=== PATIENT | female | born 1950 | race Caucasian/White ===

== ENCOUNTER 2024-08-29 21:10 | Emergency (ER) | payer MEDICARE, OTHER, SELFPAY ==
--- OUTSIDE RECORDS SUMMARY | 2024-08-29 21:13 | XMS_ITS | Encounter Summary ---
Author Organization [place] Address [address] [place] [address] Care Team Providers Care Benzol Still Operator Name Role Phone Velma Sosa PA-C Primary Care Provider [phone] Encounter Details Date Type Department Care Team (Late st Contact Info) Description 03/25/2024 [facility] [address] [facility] [address] [place] [address] [place] [address] [place] [address] Social History Tobacco Use Types Packs/Day Years Used Date Smoking Tobacco: Never Smokeless Tobacco: Never Alcohol Use Standard Drinks/Week Comments Yes 0 (1 standard drink = 0.6 oz pur e alcohol) occ. Food Insecurity Answer Date Recorded Within the past 12 months, d id you worry that your food would run out before you got money to buy more? No 01/15/2024 Within the past 12 months, d id the food you bought just not last and you didn t have money to get more? No 01/15/2024 Housing Stability Answer Date Recorded Do you have housing? (Sampsonin g is defined as stable permanent housing and does not include staying outside in a car, in a tent, in an abandoned building, in an overnight correction, or couch-surfing.) Yes 01/15/2024 Are you worried about losing your housing? No 01/15/2024 Financial Resource Strain Answer Date R ecorded Within the past 12 months, h ave you or your family members you live with been unable to get utilities (heat, electricity) when it was really needed? No 01/15/2024 Transportation Needs Answer Date Record ed Within the past 12 months, h as lack of transportation kept you from medical appointments, getting your medicines, non-medical meetings or appointments, work, or from getting things that you need? No 01/15/2024 Interpersonal Safety Answer Date Record ed Do you feel physically and e motionally safe where you currently live? Yes 01/15/2024 Within the past 12 months, h ave you been hit, slapped, kicked or otherwise physically hurt by someone? No 01/15/2024 Within the past 12 months, h ave you been humiliated or emotionally abused in other ways by your partner or ex-partner? 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 Author MYC ECC SURG ENROLL Care Plan MyC ECC SURG ENROLL No Yaneth Le documented as of this encounter Visit Diagnoses Not on filedocumented in this encounter Additional Health Concerns Active Problems Noted Date Diagnosed Date MyC ECC SURG ENROLL 12/17/2023 documented as of this encounter Care Teams Benzol Still Operator Relationship Specialty Start Date End Date Velma Sosa PA-C [address] [place] [address] PCP - General 11/20/23 documented as of this encounter
--- OUTSIDE RECORDS SUMMARY | 2024-08-29 21:13 | XMS_ITS | Data Portability ---
Author Organization [place] - [facility], [facility], [id number] [facility] [address] [facility] [address] [place] [address] Assessment No assessment recorded. Plan of Treatment Reminders Order Date Submit Date Provider Last Modified By Organization Details Last Modified Time Details Appointments None recorded. Lab rapid flu (A+B) 2024 025 [email or web address] [facility], [address] [facility] [address], [place], [address], 17:37:49 Referral None recorded. Procedures None recorded. Surgeries None recorded. Imaging None recorded. Medication Orders amoxicillin 500 mg capsule 2024 025 [id number], [address], [place], [place], [id number], 17:38:04 sodium chloride 0.9 % intravenous solution 2024 025 Not available 07:58:59 Patient TargetsNo targets recorded. Patient Instructions Encounter Date Encounter Id Patient Instructions Last Modified By Organization Details Last Modified Time 04/11/[id number] nausea and vomiting: care instructions [email or web address] Not available 04/11/2024 17:37:49 Reason for Referral None Reported. Results Created Date Observation Date Name Description Value Unit Range Abnormal Flag Note LastModifiedBy Organization Detail LastModifiedTime 04/11/19 25 04/11/2024 rapid flu (A+B) Flu A (reference range: negative) negati ve Not Available [facility] [address], [place], [address], 04/11/2024 16:36:09 04/11/19 25 04/11/2024 rapid flu (A+B) Flu B (reference range: negative) negati ve Not Available [facility] [address], [place], [address], 04/11/2024 16:36:09 Result Notes None recorded. Problems No Known Problems Procedures Surgical History Date Name Laterality Status Provider Name and Address Organization Details Recorded Time IV Infusion completed UBALDO PETER, CHRISTINA [address] [facility] [address], [place], [address], [facility], [facility] 04/11/2024 20:24:02 Imaging Results None recorded. Procedure Notes None recorded. Medical Equipment None Reported. Allergies Allergen ID Allergen Name Allergen Category Reaction Reaction Severity Criticality Documentation Date Start Date Code Code System Note Provider Name and Address Organization Details Recorded Time [id number] lithium Not available Not available Not available Not available 04/11/2024 6448 Rx[facility], [facility] 16:34:37 [id number] aspirin medicatio n Not available Not available Not available 04/11/2024 1191 RxGeorge Camarillo CMA [facility], [facility] 16:34:42 Medications Name Sig Start Date Stop Date Status Note LastModified by Organization Details LastModified Time amoxicill in 500 mg capsule TAKE 1 CAPSULE BY MOUTH EVERY 8 HOURS FOR 7 DAYS active Not Available Not Available No t Available famotidin e 40 mg tablet TAKE ONE TABLET BY MOUTH ONE TIME DAILY* active Not Available Not Available No t Available prednison e 20 mg tablet TAKE ONE TABLET BY MOUTH EVERY DAY WITH MEALS* 04/11 completed Not Available Not Available Not Available metronida zole 500 mg tablet Take 1 tablet at 1:00pm, 2:00pm and 11:00pm the day before surgery* 04/11 completed Not Available Not Available Not Available sulfameth oxazole 800 mg-trimet hoprim 160 mg tablet TAKE 1 TABLET BY MOUTH TWICE DAILY FOR 10 DAYS* 04/11 completed Not Available Not Available Not Available triamcino lone acetonide 0.1 % topical cream APPLY TWICE A DAY TO AFFECTED AREA* 04/11 completed Not Available Not Available Not Available ondansetr on 8 mg disintegr ating tablet Place 1 tablet twice a day by translin gual route as needed. 2024 active Not Available Not Available Not Avai lable amoxicill in 875 mg tablet Take 1 Tablet (875 mg) by mouth two times daily for 5 days* 04/11 completed Not Available Not Available Not Available benzonata te 100 mg capsule Take 1 Capsule (100 mg) by mouth 3 times daily if needed for Cough* 04/11 completed Not Available Not Available Not Available betametha sone dipropion ate 0.05 % topical cream Apply topicall y to affected area(s) two times daily.* 04/11 completed Not Available Not Available Not Available hydroxyzi ne HCl 25 mg tablet TAKE ONE TABLET BY MOUTH THREE TIMES DAILY NEEDED FOR ITCHING* active Not Available Not Available No t Available sodium chloride 0.9 % intraveno us solution Inject 1000 mL every day by intraven ous route. 2024 active Patient discharg e reportin g improvem ent of fatigue Not Available Not Available Not Available neomycin 500 mg tablet TAKE 2 TABLETS AT 1PM, 3PM,AND 10PM THE DAY BEFORE SURGERY. * 04/11 completed Not Available Not Available Not Available albuterol sulfate HFA 90 mcg/actua tion aerosol inhaler Inhale 1-2 Puffs by mouth every 4 hours if needed for Shortnes s Of Breath or Wheezing .* 04/11 completed Not Available Not Available Not Available ondansetr on 4 mg disintegr ating tablet DISSOLVE ONE TABLET IN MOUTH EVERY FOUR TO SIX HOURS NEEDED FOR NAUSEA* active Not Available Not Available No t Available mometason e 0.1 % topical cream Apply topicall y to affected area(s) once daily.* 04/11 completed Not Available Not Available Not Available amoxicill in 875 mg-potass ium clavulana te 125 mg tablet TAKE ONE TABLET BY MOUTH EVERY TWELVE HOURS* 04/11 completed Not Available Not Available Not Available doxepin 3 mg tablet TAKE ONE TABLET BY MOUTH AT BEDTIME* active Not Available Not Available No t Available Vitals Date Recorded Body height Body mass index (BMI) Body weight Heart rate Body temperature Oxygen saturation Oxygen saturation in Arterial blood by Pulse oximetry Respiratory rate Systolic blood pressure Diastolic blood pressure Provider Name and Address Organization Details Last Updated DateTime 175.26 cm 28.3 kg/m2 16311.0 2 g 86 /min 98.2 [degF] 98 % 98 % 16 /min 151 mm[Hg] 85 mm[Hg] Nhi Camarillo CMA [place] [facility], [facility] 16:34:15 Social History Question Answer Notes LastModified by [email or web address] Details LastModified Time Tobacco Smoking Status Never Smoker Nhi Camarillo CMA [facility] [place] [facility], [facility] 04/11/2024 16:24:32 Do You Have An Advance Directive? No Information not available 04/11/2024 What Is Your Level Of Caffeine Consumption? None Information not available 04/11/2024 Do You Have A Medical Power Of Regulatory Affairs Associate? No Information not available 04/11/2024 What Was The Date Of Your Most Recent Tobacco Screening? 04/11/2024 Information not available 04/11/2024 Has Tobacco Cessation Counseling Been Provided? No Information not available 04/11/2024 Sex: Female Functional Status Question Answer Note LastModified by [email or web address] Details LastModified Time Do you use any illicit or recreational drugs? No Information not available 04/11/2024 Do you or have you ever used any other forms of tobacco or nicotine? No Information not available 04/11/2024 What is your level of alcohol consumption? None Information not available 04/11/2024 Mental Status None recorded. Family History Nothing Reported. Medical History Condition Response KIDNEY STONES N DIABETES N CHRONIC PAIN N RADIATION / CHEMOTHERAPY N COPD N CONGESTIVE HEART FAILURE N RHEUMATOID ARTHRITIS N EYE PROBLEMS N HYPERTHYROIDISM N BLEEDING DISORDER N CHRONIC SINUSITIS N HYPOTHYROIDISM N CAROTID BLOCKAGE N SEIZURES N BACK / NECK PROBLEMS N BOWEL PROBLEMS N MIGRAINES N THYROID DISEASE N ATHEROSCLEROSIS N ULCERS N BREAST PROBLEMS N PROSTATE PROBLEMS N LUPUS N CAD - Coronary Artery Disease N IBS N DIALYSIS N OTHER N HIV / AIDS N ADHD N GERD N ANEURYSM N FIBROMYALGIA N OSTEOPOROSIS N URINARY/BLADDER/KIDNEY PROBLEMS N CANCER N HERNIA N HYPERCHOLESTEROLEMIA Y ARTHRITIS N HEADACHES N SKIN PROBLEMS N EMPHYSEMA N CROHN'S DISEASE N PERIPHERAL VASCULAR DISEASE N DVT N STROKE/CVA N HYPERLIPIDEMIA N PATIENT DENIES SIGNIFICANT PAST MEDICAL HISTORY N HEPATITIS / LIVER DISEASE N ASTHMA N GOUT N SLEEP DISORDER N HERPES N DEMENTIA N ALLERGIES N VASCULAR DISEASE N KIDNEY DISEASE N LUNG DISORDER N HYPERTENSION N CARDIAC ARRHYTHMIA N ANXIETY DISORDER N DEPRESSION (INCLUDING ) N BLOOD TRANSFUSION N ANEMIA/BLOOD DISORDER N ATRIAL FIBRILLATION N PULMONARY EMBOLISM N BIPOLAR DISORDER N HEART DISEASE N BRAIN TUMOR N OSTEOARTHRITIS N HEART ATTACK (CA) N TUBERCULOSIS N GLAUCOMA N Gynecological History Statement/Question Response If Post Menopausal, Age at Menopause 49 Obstetrics History GPAL:G 0 P 0 0 0 0 Past Encounters Encounter ID Performer Location Encounter Start Date Encounter Closed Date Diagnosis/Indication Diagnosis SNOMED-CT Code Diagnosis ICD10 Code Diagnosis Note [id number] UBALDO PETER NP [facility] [phone] [place] [address] 04/11/2024 15:14:05 04/11/2024 21:02:07 Nausea and vomiting 18096623 R11.2 influenza a and B swabs negative, patient reports she has been weak and I able to keep anything down since symptoms started 2 days ago. Will empiricall y treat with amoxicilli n. administer ed 1 L of normal saline, patient reports improvemen t of weakness, fatigue it. Discussed signs of dehydratio n instructed to go to the ER if having same. Health Concerns Section Related Observation LastModified by Organization Detai ls LastModified Time None Recorded Concern Status LastModified by Organization Details LastModified Time None Recorded Advance Directives Directive N: Payers Insurance Date Sequence Insurance Name Policy Number Policy Maddox Covered Member ID Maddox Member ID Guarantor Name 08/13/2024 1 [place] Bell Foreman [id number] Bell Foreman 04/13/2024 2 () Bell Foreman [id number] Bell Foreman Notes Date Note Type Note Provider Name and Address Organization Details Recorded Time 04/11/2024 text/html 73-year-old female presenting with vomiting diarrhea body aches chills that started 2 days ago. States that she has been unable to keep anything down since then. Rates pain a 5/10. States she feels she is dehydrated. UBALDO PETER NP [address], [place], [address], [place] [facility], [facility] 04/11/2024 20:24:23 OBGyn Episode No OBEpisode recorded.
--- OUTSIDE RECORDS SUMMARY | 2024-08-29 21:13 | XMS_ITS | Clinical Summary ---
Author Organization [place] Address [address] [place] [address] Care Team Providers Care K 9 Police Officer Name Role Phone Velma Sosa PA-C Primary Care Provider Allergies Active Allergy Reactions Criticality Noted Date Comments Adhesive Tape Rash Low 10/30/2023 Aspirin Hives High 12/23/2004 Tolerated Aspirin on 06/12/2018 without difficulty. No hives. [place] Hives High 12/23/2004 Naproxen Hives High 12/23/2004 Ok to take ibuprofen Medications albuterol (PROAIR HFA/PROVENTIL HFA/VENTOLIN HFA) 108 (90 Base) MCG/ACT inhaler Inhale 1-2 puffs into the lungs every 4 hours as needed. 4 Active vitamin D3 (CHOLECALCIFEROL) 125 MCG (5000 UT) tablet Take 5,000 Units by mouth daily. Active cyanocobalamin (VITAMIN B-12) [address] 1,000 mcg under the tongue daily. Active gabapentin (NEURONTIN) 300 MG capsule Take 300 mg by mouth every morning. 3 Active gabapentin (NEURONTIN) 400 MG capsule Take 1,200 mg by mouth at bedtime. 3 Active hydrOXYzine HCl (ATARAX) 10 MG tablet Take 25 mg by mouth every 8 hours as needed for itching. 3 Active metoprolol succinate ER (TOPROL XL) 25 MG 24 hr tablet Take 1 tablet by mouth daily. 4 Active Multiple Vitamin (ONE-A-DAY ESSENTIAL) TABS Take 2 tablets by mouth daily. Active xggcdo-hhsuevwi-e mylase (CREON 24) 68633-65[address]-25[address] 0 units CPEP per EC capsule Take 2 capsules by mouth 3 times daily (with meals). Active fexofenadine (GALILEA) 60 MG tablet Take 60 mg by mouth daily. Active Lactobacillus Acidophilus (ACIDOPHILUS LACTOBACILLUS) 10 BETH UNT/GM POWD 1 tablet daily. Active dcgdvk-icypduei-u mylase (CREON 24) 98669-21747-01466 0 units CPEP per EC capsule Take 1 capsule by mouth Take with snacks or supplements. Active oxyCODONE (ROXICODONE) 5 MG tabletIndications :Mass of colon Take 1 tablet (5 mg) by mouth every 6 hours as needed for moderate to severe pain. 15 tablet 4 Active apixaban ANTICOAGULANT (ELIQUIS) 5 MG tabletIndications :Chronic atrial fibrillation (H) Take 1 tablet (5 mg) by mouth 2 times daily. 60 tablet 4 Active doxepin (SILENOR) 3 MG tablet Take 3 mg by mouth at bedtime. Active vancomycin (VANCOCIN) 125 MG capsuleIndication s:Clostridioides difficile Take 1 tab q6 hours for ten days and continue 1 tab BID until medication is over 68 capsule 4 Active Active Problems Problem Noted Date Diagnosed Date Intra-abdominal abscess 01/15/2024 Abdominal wall cellulitis 01/15/2024 Resolved Problems Problem Noted Date Diagnosed Date Resolved Date Mixed incontinence 03/11/2024 Mass of colon 12/23/2023 05/22/2024 Social History Tobacco Use Types Packs/Day Years Used Date Smoking Tobacco: Never Smokeless Tobacco: Never Tobacco Cessation:Counseling Given: Not Answered Alcohol Use Standard Drinks/Week Comments Yes 0 [...] Answer Date Recorded Do you have housing? 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 MACHINE OPERATOR Gender Identity Not on file Sexual Orientation Not on file Last Filed Vital Signs Vital Sign Reading Time Taken Comments Blood Pressure 129/70 01/22/2024 7:54 AM INSEAM TRIMMING MACHINE OPERATOR Pulse 73 01/22/2024 7:54 AM INSEAM TRIMMING MACHINE OPERATOR Temperature 36.8 C (98.2 F) 01/22/2024 7:54 AM INSEAM TRIMMING MACHINE OPERATOR Respiratory Rate 16 01/22/2024 7:54 AM INSEAM TRIMMING MACHINE OPERATOR Oxygen Saturation 99% 01/22/2024 7:54 AM INSEAM TRIMMING MACHINE OPERATOR Inhaled Oxygen Concentration - - Weight 86 kg (189 lb 9.6 oz) 01/17/2024 3:48 AM INSEAM TRIMMING MACHINE OPERATOR Height 177.8 cm (5' 10) 01/15/2024 5:04 PM INSEAM TRIMMING MACHINE OPERATOR Body Mass Index 27.2 01/15/2024 5:04 PM INSEAM TRIMMING MACHINE OPERATOR Plan of Treatment Health Maintenance Due Date Last Done Comments ADVANCE CARE PLANNING 1950 ANNUAL REVIEW OF HM ORDERS 1949 CT COLONOGRAPHY 1949 FIT 1949 FLEX SIG 1949 sDNA (Cologuard) 1949 LIPID 1989 RSV VACCINE (1 - Risk 60-74 years 1-dose series) 2009 FALL RISK ASSESSMENT 2014 MEDICARE ANNUAL WELLNESS VISIT 01/22/2024 01/21/2023, 01/22/2022, 01/21/2021 PHQ-2 (once per calendar year) 2024 COVID-19 VACCINE ( season) 2024 12/10/2023, 12/10/2022, 09/23/2022, Additional history exists DTAP/TDAP/TD VACCINE (2 - Td or Tdap) 04/15/2026 04/15/2016, 01/01/2006 MAMMO SCREENING 07/14/2026 07/14/2024, 06/08, 07/04/2024, Additional history exists DIABETES SCREENING 01/15/2027 01/16/2024, 1 03/16/2023, 01/13/2024, Additional history exists COLONOSCOPY 11/02/2033 11/03/2023 COLORECTAL CANCER SCREENING 11/02/2033 DEXA 08/07/2037 08/07/2022 PNEUMOCOCCAL VACCINE 50+ YEARS Completed 01/21/2021, 02/14/2015, 12/21/2013, Additional history exists ZOSTER VACCINE Completed 09/23/2022, 01/08, 04/15/2016 INFLUENZA VACCINE Completed 12/10/2023, , 01/10/2022, Additional history exists HEPATITIS C SCREENING Completed 01/18/2024, 021 HPV VACCINE Aged Out No longer eligi ble based on patient's age to complete this topic MENINGITIS VACCINE Aged Out No longer eligible based on patient's age to complete this topic Goals Goal Patient Goal Type Associated Problems Recent Progress Patient-Stated? Author MYC ECC SURG ENROLL Care Plan MyC ECC SURG ENROLL No Yaneth Le Procedures Procedure Name Priority Date/Time Associated Diagnosis Comments HEPATITIS C ANTIBODY Add-On 01/18/2024 6:21 AM INSEAM TRIMMING MACHINE OPERATOR COMPREHENSIVE METABOLIC PANEL Routine 01/16/2024 7:37 AM INSEAM TRIMMING MACHINE OPERATOR from Last 3 Months or Most Recently Relevant to Health Maintenance Results * Hepatitis C antibody (01/18/2024 6:21 AM INSEAM TRIMMING MACHINE OPERATOR) Hepatitis C Antibody Nonreactive Nonreactive 01/18/2024 5:04 PM INSEAM TRIMMING MACHINE OPERATOR [facility] Comment:A nonreactive screen ing test result does not exclude the possibility of exposure to or infection with HCV. Nonreactive screening test results in individuals with prior exposure to HCV may be due to antibody levels below the limit of detection of this assay or lack of reactivity to the HCV antigens used in this assay. Patients with recent HCV infections (<3 months from time of exposure) may have false- negative HCV antibody results due to the time needed for seroconversion (average of 8 to 9 weeks). Blood STRUCTURE OF RIGHT HAND / Unknown Venipuncture / Unknown 01/18/2024 6:21 AM INSEAM TRIMMING MACHINE OPERATOR 01/18/2024 6:28 AM INSEAM TRIMMING MACHINE OPERATOR us Tashia Davis PA-C LAB - BLOOD ORDERAB LES Final Result [facility] [address] [facility] [place] [address], [facility] * (ABNORMAL) Comprehensive metabolic panel (01/16/2024 7:37 AM INSEAM TRIMMING MACHINE OPERATOR) Pathologist [facility] Sodium 136 135 - 145 mmol/L 01/16/2024 8:14 AM [facility] Potassium 4.6 3.4 - 5.3 mmol/L 01/16/2024 8:14 AM [facility] Carbon Dioxide (CO2) 24 22 - 29 mmol/L 01/16/2024 8:14 AM [facility] Anion Gap 11 7 - 15 mmol/L 01/16/2024 8:14 AM [facility] Urea Nitrogen 10.7 8.0 - 23.0 mg/dL 01/16/2024 8:14 AM [facility] Creatinine 1.01(H) 0.51 - 0.95 mg/dL 01/16/2024 8:14 AM [facility] GFR Estimate 58(L) >60 mL/min/1.7 3m2 01/16/2024 8:14 AM INSEAM TRIMMING MACHINE OPERATOR [facility] Comment:eGFR calculated usin 2020 CKD-EPI equation. Calcium 8.7(L) 8.8 - 10.4 mg/dL 01/16/2024 8:14 AM INSEAM TRIMMING MACHINE OPERATOR [facility] Comment:Reference intervals for this test were updated on 09/22/2023 to reflect our healthy population more accurately. There may be differences in the flagging of prior results with similar values performed with this method. Those prior results can be interpreted in the context of the updated reference intervals. Chloride 101 98 - 107 mmol/L 01/16/2024 8:14 AM INSEAM TRIMMING MACHINE OPERATOR [facility] Glucose 94 70 - 99 mg/dL 01/16/2024 8:14 AM INSEAM TRIMMING MACHINE OPERATOR [facility] Alkaline Phosphatase 242(H) 40 - 150 U/L 01/16/2024 8:14 AM INSEAM TRIMMING MACHINE OPERATOR [facility] AST 47(H) 0 - 45 U/L 01/16/2024 8:14 AM INSEAM TRIMMING MACHINE OPERATOR [facility] ALT 42 0 - 50 U/L 01/16/2024 8:14 AM INSEAM TRIMMING MACHINE OPERATOR [facility] Protein Total 6.3(L) 6.4 - 8.3 g/dL 01/16/2024 8:14 AM INSEAM TRIMMING MACHINE OPERATOR [facility] Albumin 3.0(L) 3.5 - 5.2 g/dL 01/16/2024 8:14 AM INSEAM TRIMMING MACHINE OPERATOR LABORATORY Bilirubin Total 0.2 <=1.2 mg/dL 01/16/2024 8:14 AM INSEAM TRIMMING MACHINE OPERATOR LABORATORY Blood STRUCTURE OF RIGHT UPPER LIMB / Unknown Venipuncture / Unknown 01/16/2024 7:37 AM INSEAM TRIMMING MACHINE OPERATOR 01/16/2024 7:51 AM INSEAM TRIMMING MACHINE OPERATOR Aissatou Mccarthy PA-C LAB - BLOOD ORDERABLES Fin al Result [facility] [address] Lab (1st floor, no room number) [place] [address], [facility] from Last 3 Months or Most Recently Relevant to Health Maintenance Additional Health Concerns Active Problems Noted Date Diagnosed Date MyC ECC SURG ENROLL 12/17/2023 Insurance MEDICARE / [place] [address] MEDICARE / [place] [address] Advance Directives For more information, please contact: [phone] * Full Code (Latest Code Status on File) Date Activated Date Inactivated Comments 01/15/2024 4:13 PM 01/22/2024 5:05 PM All basic a nd advanced life-sustaining interventions are performed as appropriate Question Answer Comments Code status determined by: Discussion with mauro nt/ legal decision maker * Full Code Date Activated Date Inactivated Comments 12/23/2023 12:32 PM 12/25/2023 3:14 PM All basic and advanced life-sustaining interventions are performed as appropriate Question Answer Comments Code status determined by: Discussion with mauro nt/ legal decision maker Care Teams K 9 Police Officer Relationship Specialty Start Date End Date Velma Sosa PA-C [address] [place] [address] PCP - General 11/20/23
--- OUTSIDE RECORDS SUMMARY | 2024-08-29 21:13 | XMS_ITS | Encounter Summary ---
Author Organization [facility] Address [address] [place] [id number] Care Team Providers Care Medicare Insurance Specialist Name Role Phone Velma Sosa PA-C Primary Care Provider [phone] Encounter Details Date Type Department Care Team (Late st Contact Info) Description 01/13/2024 Orders Only [facility] [address] [place] [address] Jan Conway PA-C [facility] [id number] [place] [address] Postoperative abdominal pain (Primary Dx) Social History Tobacco Use Types Packs/Day Years [...] in an abandoned building, in an overnight fdc, or couch-surfing.) Yes 01/15/2024 Are you worried [...] on file Legal Sex Female 3:36 AM [employer] Gender Identity Not on file Sexual Orientation Not on file documented as of this encounter Plan of Treatment Scheduled Orders Name Type Priority Associated Diagnoses Orde r Schedule Basic metabolic panel Lab Routine Postoperative abdominal pain Expected: 01/13/2024 (Approximate), Expires: 01/12/2025 CBC with Platelets & Differential Lab Panel Routine Postoperative abdominal pain Expected: 01/13/2024 (Approximate), Expires: 01/12/2025 documented as of this encounter Goals Goal Patient Goal Type Associated Problems Recent Progress Patient-Stated? Author [facility] Care Plan [facility] No Yaneth Le documented as of this encounter Visit Diagnoses Diagnosis Postoperative abdominal pain- Primary Abdominal pain, unspecified site documented in this encounter Additional Health Concerns Active Problems Noted Date Diagnosed Date [facility] 12/17/2023 Infection Onset Date Last Indicated Resolved Time Rule Out C-difficile 01/19/2024 01/19/2024 024 9:25 PM [employer] C-difficile 01/19/2024 01/19/2024 02/18/2024 11:3 9 PM [employer] documented as of this encounter Care Teams Medicare Insurance Specialist Relationship Specialty Start Date End Date Velma Sosa PA-C [address] [place] [address] PCP - General 11/20/23 documented as of this encounter
[2024-08-29 21:31] VITALS: BP 144/94; PULSE 89; RESP 16; TEMP 36.8; O2SAT 98; BMI 31.0
--- NOTE | 2024-08-29 21:39 | ED.GENADULT ---
HPI - General Adult General Time Seen by Provider: 21:39 Date Seen: 08/29/24 Chief complaint: Lower Extremity Swelling Stated complaint: swollen R ankle Time Seen by Provider: 08/29/24 21:39 Source: patient and RN notes reviewed Mode of arrival: ambulatory Limitations: no limitations History of Present Illness HPI narrative: Bell is a very pleasant 73-year-old female with past history colon cancer, atrial fibrillation, currently awaiting lumpectomy for breast cancer in 48 hours who comes to the emergency room for evaluation of swelling of her right ankle. Patient noted normal day without trauma today. This evening she had swelling in the outside of her right ankle. It has not been excessively red, painful. She did go swimming this morning but does not recall any injury. She discontinued her anticoagulant while awaiting the lumpectomy but has no calf pain fever chills or other symptoms to go with this. She is hold no history of gout. She has no pain at rest. Related Data Home Medications ?Medication ?Instructions ?Recorded ?Confirmed calcium carbonate 1,500 mg PO DAILY 07/10/22 08/29/24 cholecalciferol (vitamin D3) 10 500 unit PO DAILY 07/10/22 08/29/24 mcg/mL (400 unit/mL) oral drops cyanocobalamin (vitamin B-12) 3,000 mcg PO QDAY 07/10/22 08/29/24 3,000 mcg capsule gabapentin 300 mg capsule 300 mg PO QDAY 07/10/22 08/29/24 multivitamin (Multiple Vitamins 1 tab PO QDAY 07/10/22 08/29/24 tablet) omega 3-ult-bzr-fish oil 1,000 mg 1 cap PO QDAY 07/10/22 08/29/24 (120 mg-180 mg) capsule (Fish Oil) apixaban 5 mg tablet (Eliquis) 5 mg PO BID 12/27/23 08/29/24 Previous Rx's ?Medication ?Instructions ?Recorded hydroxyzine HCl 25 mg tablet 25 mg PO TID PRN itching #14 tabs 12/27/23 Allergies Allergy/AdvReac Type Severity Reaction Status Date / Time lithium Allergy Unknown Verified 06/29/24 18:10 naproxen Allergy Unknown Hives Verified 06/29/24 18:10 colchicine Allergy Hives Verified 08/29/24 21:34 Aspirin Allergy Unknown Uncoded 06/29/24 18:10 Review of Systems Status of ROS: Reports: 6 or more systems reviewed and unremarkable except as noted in History and below [facility] Social History Smoking Status: Never smoker How often do you have a drink containing alcohol: never AUDIT-C Alcohol total score: 0 Non-prescribed substance use: denies use Exam Narrative: Exam Narrative: Bell is alert and oriented very pleasant well-spoken woman in no acute distress. No respiratory distress. Examination of her lower extremity shows no swelling of the legs. She has localized swelling over the right lateral malleolus only. No swelling over the dorsum of the foot or the medial malleolus. Other ankle is unaffected. No tenderness over the bony aspects of the ankle. Range of motion shows some discomfort with eversion of the ankle. Otherwise no pain and range of motion is full. No ecchymosis noted. Ankle is not warm to the touch. Const: Vital Signs, click to edit/add: Vital Signs - 24 hr 08/29/24 21:31 Temperature 98.2 F Pulse Rate [Pulse Oximeter] 89 Respiratory Rate 16 Blood Pressure [Ri ght Upper Arm] 144/94 H Pulse Oximetry 98 Oxygen Delivery Me thod Room Air Documenting provider has reviewed patient's vital signs: yes Course Course ED Course: Differential diagnosis is quite broad and includes fracture, ligamental injury, insect bite, cellulitis, gout. The only aspect of the ankle affected is the lateral aspect and patient really has no significant pain and thus I do not think we are dealing with gout. There is no evidence of a bite paige or ecchymosis. Area is slightly pink not well demarcated and not warm to the touch in so I do not think this is cellulitis. Most likely this represents a musculoskeletal type of injury. Will obtain x-ray. Patient has been off of her anticoagulant for AFib pending a lumpectomy on Thursday 08/31. There is no evidence of calf swelling to indicate DVT. Vital Signs Vital signs: Initial Vital Signs Temperature 98.2 F 08/29/24 21:31 Temperature Source Temporal Artery Scan 08/29/24 21:31 Pulse Rate 89 08/29/24 21:31 Respiratory Rate 16 08/29/24 21:31 Blood Pressure 144/94 H 08/29/24 21:31 Blood Pressure Mean 110 H 08/29/24 21:31 Blood Pressure Position Sitting 08/29/24 21:31 Pulse Oximetry 98 08/29/24 21:31 Oxygen Delivery Method Room Air 08/29/24 21:31 Vital Signs Temperature 98.2 F 08/29/24 21:31 Pulse Rate 89 08/29/24 21:31 Respiratory Rate 16 08/29/24 21:31 Blood Pressure 144/94 H 08/29/24 21:31 Pulse Oximetry 98 08/29/24 21:31 Oxygen Delivery Method Room Air 08/29/24 21:31 Temperature 98.2 F 08/29/24 21:31 Pulse Rate 89 08/29/24 21:31 Respiratory Rate 16 08/29/24 21:31 Blood Pressure 144/94 H 08/29/24 21:31 Pulse Oximetry 98 08/29/24 21:31 Oxygen Delivery Method Room Air 08/29/24 21:31 Medical Decision Making MDM Narrative Medical decision making narrative: 1. Right ankle swelling-patient does not recall any injury but does note she could have hurt herself in the pool. Bili no other serious diagnosis fits the distribution of the swelling or the findings tonight. I do not think this is cellulitis given the nature of the swelling, it is not warm to the touch, and there is no fever or chills. no evidence of injury here but patient was certainly active earlier today. I do not think this is gout as she really does not have any significant discomfort. At this time will apply Rudy wrap for support. Recommend elevating ankle as needed. Would like patient to keep close eye on this and should she develop increasing redness fever chills to return for further evaluation. We discussed the use of an antibiotic but at this time I would advise against that and she is in agreement. 2. Disposition-home at this time. Return as needed for worsening symptoms. Imaging Data Right ankle x-ray: Attestation: I have reviewed the pertinent imaging results. My impression: I do not note any acute fracture Radiologist's impression: Findings/Impression: Bones: Alignment is normal. No displaced fractures or bone lesions. Joint spaces: Unremarkable. Soft tissues: Focal soft tissue swelling about the lateral malleolus. Discharge Plan Discharge Clinical Impression: Right ankle swelling Patient Disposition: Home, Self-Care Condition: Unchanged Additional Instructions: Recommend Rudy wrap to support ankle and limit swelling. Please monitor your ankle and should you start noticing increasing redness especially redness coming up your leg or onto the foot you will need to be seen again. At this time x-ray does not show any evidence of fracture. If ankle continues to be swollen I would recommend following up with your regular physician or with Orthopedics for recheck. Prescriptions: No Action cholecalciferol (vitamin D3) 10 mcg/mL (400 unit/mL) drops 500 unit PO DAILY calcium carbonate 500 mg calcium (1,250 mg) tablet 1,500 mg PO DAILY multivitamin [Multiple Vitamins] Tablet 1 tab PO QDAY gabapentin 300 mg capsule 300 mg PO QDAY omega 0-hkv-ohp-fish oil [Fish Oil] 1,000 mg (120 mg-180 mg) capsule 1 cap PO QDAY cyanocobalamin (vitamin B-12) 3,000 mcg capsule 3,000 mcg PO QDAY Eliquis 5 mg tablet 5 mg PO BID hydroxyzine HCl 25 mg tablet 25 mg PO TID PRN (Reason: itching) Qty: 14 0RF Follow Up/Referrals: Velma Sosa PA-C [Primary Care Provider, Family Practice] Stand Alone Forms: MyHealth Info Instructions
--- NOTE | 2024-08-29 21:57 | CRLHL7_ITS ---
For Patients: As a result of the Century Cures Act, medical imaging exams and procedure reports are released immediately into your electronic medical record. You may view this report before your referring provider. If you have questions, please contact your health care provider. Indication: Swelling. Technique: Right ankle, 2 views. Comparison: None. Findings/Impression: Bones: Alignment is normal. No displaced fractures or bone lesions. Joint spaces: Unremarkable. Soft tissues: Focal soft tissue swelling about the lateral malleolus. Dictated by Denny Cherry MD @ 08/29/2024 10:10:39 PM (Electronically Signed)
--- OUTSIDE RECORDS SUMMARY | 2024-08-29 22:20 | XMS_ITS | Clinical Summary ---
Author Organization [facility] Address [facility] [place] [address] Care Team Providers Care Drill Doctor Name Role Phone Velma Sosa Primary Care Provider [phone] Maria T Quintero RN Unavailable Jessie Trevizo RN Unavailable Shakira Christie MD Unavailable [phone] Allergies Active Allergy Reactions Criticality Noted Date Comments Adhesive Tape-Silicones Rash 10/30/2023 Aspirin Hives High 12/23/2004 Tolerated Aspirin on 06/12/2018 without difficulty. No hives. Elliott Hives High 12/23/2004 Naproxen Hives High 12/23/2004 Ok to take ibuprofen Medications Cholecalciferol, Vitamin D3, (VITAMIN D-3) 5,000 unit tabIndications:p revention of vitamin D deficiency Take 5,000 Units by mouth once daily. Indications: Prevention of Vitamin D Deficiency Active cyanocobalamin 1,[address] 1,000 mcg under the tongue once daily. Active multivitamin (MVI) tablet Take 2 tablets by mouth once daily. Active lipase-protease- amylase (Creon) 24,000-76,000 -120,000 unit cpDR delayed-release capsule take 2 capsule by oral route with meals and 1 capsule with each snack 2 Active Lactobacillus acidophilus 10 billion cell cap Take by mouth. 2 Active albuterol HFA (PRO-AIR; VENTOLIN; PROVENTIL) 90 mcg/actuation inhalerIndicatio ns:Mild intermittent asthma without complication (HC) Inhale 1-2 Puffs by mouth every 4 hours if needed for Shortness Of Breath or Wheezing. 18 g 1 4 Active famotidine (PEPCID) 40 mg tabletIndication s:Urticaria Take 1 Tablet (40 mg) by mouth once daily. 30 Tablet 4 Active fexofenadine (GALILEA) 60 mg tablet Take 60 mg by mouth 2 times daily if needed. Active gabapentin (NEURONTIN) 300 mg capsuleIndicatio ns:Bipolar I disorder (HC) Take 1 Capsule (300 mg) by mouth once daily. In morning 90 Capsule 3 4 Active gabapentin (NEURONTIN) 400 mg capsuleIndicatio ns:Bipolar I disorder (HC) Take 3 Capsules (1,200 mg) by mouth at bedtime. 270 Capsule 3 4 Active hydrOXYzine HCL (ATARAX) 25 mg tablet TAKE ONE TABLET BY MOUTH THREE TIMES DAILY NEEDED FOR ITCHING* Active apixaban (Eliquis) 5 mg tabletIndication s:Paroxysmal atrial fibrillation (HC) Take 1 Tablet (5 mg) by mouth two times daily. 180 Tablet 3 5 Active metoprolol succinate (TOPROL XL) 25 mg Sustained-Releas e tabletIndication s:Paroxysmal atrial fibrillation (HC) Take 1 Tablet (25 mg) by mouth once daily. 90 Tablet 3 5 Active nortriptyline 25 mg capsuleIndicatio ns:Chronic tension-type headache, intractable Take 1 Capsule (25 mg) by mouth at bedtime. 90 Capsule 3 5 Active doxepin (SILENOR) 3 mg tablet TAKE ONE TABLET BY MOUTH AT BEDTIME* 025 Discontin ued(*Med complete/ Regimen complete/ Level of care change) Active Problems Patient Care Coordination No te Formatting of this note migh t be different from the original. Remaining healthy so I can continue to be active is what matters most to Bell Bui. Bell Bui would like her care team to know I want to be involved in making care decisions, and I want you to give me recommendations for reaching my goals. What are Bell Bui's challenges, stressors, or barriers? Being alone, making decisions with out a partner, my a few years ago, leaving me alone now. 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, estrogen receptor positive 08/03/2024 Cancer Staging:Clinical stage from 08/03/2024:Stage IIA(cT2, cN0, cM0, G2, ER+, TX-, HER2-) - Signed by Shakira Christie MD on 08/03/2024 Malignant neoplasm of colon 02/05/2024 Intra-abdominal abscess post-procedure Excessive skin and subcutaneous tissue Abdominal pannus 07/17/2023 Mild intermittent asthma without complication Thyroid nodule 07/07/2023 Paroxysmal atrial fibrillation 01/21/2023 Exocrine pancreatic insufficiency 01/22/2022 Low ferritin level 01/22/2022 Arthritis of left glenohumeral joint 04/16/2021 Tendinitis of left rotator cuff 02/15/2021 Subacromial bursitis of left shoulder joint 02/06 Laceration of scalp 07/24/2019 Bipolar affective disorder, mixed, severe, with psychotic behavior 07/24/2019 Major neurocognitive disorder due to multiple et iologies 07/24/2019 Osteopenia of multiple sites 01/24/2018 Overview (01/24/2018): DEXA done 01/2018 - repeat in 7-10 years. Acute pain of right shoulder 08/06/2017 Gastric ulcer 02/24/2017 Erythema intertrigo 12/02/2016 Overview (12/02/2016): Added automatically from request for surgery [id number] Macromastia 12/02/2016 Overview (12/02/2016): Added automatically from request for surgery [id number] Panniculitis 12/02/2016 Chronic midline low back pain without sciatica 0 12/02/2016 Overview (12/02/2016): Added automatically from request for surgery [id number] Iron deficiency anemia, unspecified 04/25/2016 Esophageal dysmotility 04/25/2016 Laparoscopic adhesiolysis, p artial gastrectomy, resection of efferent briana limb 04/10/2016 Overview (07/06/2018): Dr. Mckeon Polyp of colon 04/10/2016 Obesity 08/07/2013 S/P gastric bypass 08/07/2013 Anxiety state, unspecified 08/07/2008 Morbid obesity 06/20/2008 Unspecified intestinal malabsorption 06/20/2008 Pure hypercholesterolemia Resolved Problems Problem Noted Date Diagnosed Date Resolved Date Type 2 diabetes mellitus wit hout complication, with long-term current use of insulin 08/23/2024 08/23/2024 Paranoid schizophrenia 07/22/202109/03 Type 2 diabetes mellitus wit h stage 3a chronic kidney disease, without long-term current use of insulin 07/22/2021 07/07/2023 Chronic obstructive pulmonary disease 01/21/2021 07/07/2023 Psychosis 07/06/2019 04/14/2023 Mood disorder with psychosis 07/06/2019 09/03/2022 Thyroid nodule 01/24/2018 07/07/2023 Overview (06/13/2022): Benign biopsy in 01/2018. Repeat u/s in 01/2020, new nodule in superior right side with multiple other stable nodules. Repeat u/s in 01/2021, no changes from 2020. Plan to repeat in 3 years. CKD (chronic kidney disease) stage 3, GFR 30-59 ml/min 11/23/2017 07/07/2023 Vitamin D deficiency 12/08/2016 024 DIABETES TYPE II WITHOUT COM PLICATIONS OR UNSPECIFIED 11/21/2002 06/20/2008 Unspecified essential hypertension 06/20/2008 Unspecified asthma(493.90) 0 07/07/2023 Mood disorder NOS 09/03/2022 Type 2 diabetes mellitus wit hout complication, without long-term current use of insulin 07/08/2023 Overview (12/08/2016): diet controlled Encounters Date Type Department Care Team Description 08/23/2024 11:10 AM CDT Office Visit [facility] [address] [place] [address] Velma Sosa PA Preoperative Exam (Left breast lumpectomy-Dr. ChristieDktswq-Jfjfqb-3/25/ 25) 08/23/2024 Travel 08/21/2024 Travel 08/18/2024 8:15 AM CDT Ancillary Procedure [facility] [address] [place] [phone] 08/18/2024 Travel 08/15/2024 Travel 08/11/2024 Telephone [facility] [address] [place] [address] Shakira Christie MD 08/11/2024 E-Visit [facility] [address] [place] [address] Velma Sosa PA swelling on side of head 08/10/2024 Telephone [facility] [address] [place] [address] Emilia Chaney, MS, CGC Results (Hereditary Cancer Genetics/) 08/09/2024 Orders Only [facility] [address] [place] [address] Sarah Reza MD <No scans attached> 08/05/2024 10:30 AM CDT Ancillary Procedure [facility] [address] [facility] [address] [place] [address] 08/04/2024 1:30 PM CDT Telemedicine [facility] [address] [place] [address] Emilia Chaney, MS, CGC Counseling (Hereditary Cancer Genetics/) 08/04/2024 Travel 08/03/2024 11:05 AM CDT - 08/03/2024 11:59 PM CDT Hospital Encounter [facility] [address] [place] [address] Shakira Christie MD Malignant 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, estrogen receptor positive (HC) 08/03/2024 9:00 AM CDT Office Visit [facility] [address] [address] Shakira Christie MD Consult (Newly diagnosed breast cancer) 08/03/2024 Telephone [facility] [address] [place] [address] Roxy [facility] Cancer [facility]etics 08/03/2024 Orders Only [facility] [address] [place] [address] Emilia Chaney, MS, CGC Lab 08/03/2024 Orders Only [facility] [address] [place] [address] Emilia Chaney, MS, CGC <No scans attached> 08/03/2024 Telephone [facility] [address] [address] Shakira Christie MD Appointment 08/02/2024 5:32 AM CDT - 08/02/2024 11:59 PM CDT Hospital Encounter [facility] [address] [place] [address] Shakira Christie MD Malignant neoplasm of left female breast, unspecified estrogen receptor status, unspecified site of breast (HC) 08/02/2024 Travel 07/29/2024 Travel 07/27/2024 Transcribe Orders [facility] [address] [address] Shakria Christie MD 07/27/2024 Telephone [facility] [address] [address] Tita Quezada, NEELAM Appointment ([facility] for breast cancer ) 07/26/2024 Telephone [facility] [address] [place] [address] [facility] Cancer Referral (Breast Cancer) 07/26/2024 Transcribe Orders [facility] [address] [place] [address] [facility] 07/26/2024 Telephone [facility] [address] [place] [address] Siobhan Arora RN breast biopsy results 07/25/2024 10:48 AM CDT - 07/25/2024 11:59 PM CDT Hospital Encounter [facility] [address] [place] [address] Velma Sosa PA Abnormal mammogram 07/25/2024 Travel 07/14/2024 2:30 PM CDT Ancillary Procedure [facility] [address] [place] [address] 07/14/2024 2:00 PM CDT Ancillary Procedure [facility] [address] [place] [address] 07/14/2024 Travel 07/07/2024 8:53 AM CDT - 07/07/2024 11:59 PM CDT Hospital Encounter [facility] [address] [place] [address] Iron deficiency anemia, unspecified iron deficiency anemia type (Primary Dx) 07/07/2024 Travel 07/06/2024 Telephone [facility] [address] [place] [address] Tech, Mammo Results 07/04/2024 10:00 AM CDT Ancillary Procedure [facility] [address] [place] [address] 07/04/2024 Travel 07/01/2024 12:55 PM CDT Office Visit [facility] [address] [place] [address] Kyra Bear NP Hair/Scalp Problem (Patient states she finished her antibiotics for cellulitis on her scalp; still having some minor pain and discomfort on the affected area. Tender to the touch.) 07/01/2024 Travel 06/30/2024 2:18 PM CDT - 06/30/2024 11:59 PM CDT Hospital Encounter [facility] [address] [place] [address] Iron deficiency anemia, unspecified iron deficiency anemia type (Primary Dx) 06/30/2024 Travel 06/23/2024 Hospital/[facility] Telephone Encounter [facility] [address] [facility] [place] [address] Courtney Farooq RN Pre Procedure 06/22/2024 1:45 PM CDT Office Visit [address] [address] Cary Schuler, CHRISTINA Survivorship (Malignant neoplasm of colon) 06/22/2024 Travel 06/15/2024 10:00 AM CDT Orders Only [facility] [address] [place] [address] Lab, [place] Lab 06/14/2024 2:30 PM CDT Office Visit [facility] [address] [place] [address] Velma Sosa PA Derm Problem (Swelling on scalp above left ear-hurts to touch-has been going on for 3 wks-can feel it when laying on that side at night) 06/14/2024 Travel 06/13/2024 3:15 PM CDT Ancillary Procedure [facility] [address] [facility] [address] [place] [address] 06/13/2024 2:05 PM CDT Office Visit [facility] [address] [place] [address] Lisandra Guo PA Concerns (Swelling behind left ear, per 2 weeks. Tender at touch. No fever reported.) 06/13/2024 Travel from Last 3 Months Immunizations Immunization Administration Dates Next Due COVID-19 vaccine (Pfizer-Bio NTech 30mcg/0.3mL) 12YO+ BIVALENT PF, MDV 01/10/2022 COVID-19 vaccine (Pfizer-Bio NTech 30mcg/0.3mL) PF, MDV 06/01/2020,05/11/2020 Influenza A (H1N1), Inactivated 01/04/2009 Influenza A (H1N1), Inactiva nisreen (Age >=3 Years) 01/04/2009 Influenza Virus, Unspecified 12/06/2008 Influenza, High-dose Inactivated 12/10/2023,11/07,02/14/2015 Influenza, High-dose Quadriv alent Inactivated 12/02/2022 Influenza, IIV3 (Age 6-35 mos) 4,12/06/2012,01/21/2012,12/19,02/27/2010 Influenza, IIV3 (Age >=3 years) 12/07/19 13,01/21/2012,12/19/2010,02/27,12/06/2008,12/15/2007,12/15/2006 ,02/07/2006,02/07/2006,12/26/2004,12/07,01/12/2003 Influenza, IIV4 02/14/2015,12/21/2013 Influenza, IIV4 (=>6mos) MDV 12/08/2016,12/08/19 16 Influenza, Inactivated AIIV4 (Age 65+ Years) Preserv Free 01/10/2022,12/14/2020,12/12/2019 Influenza, Inactivated IIV3 (Age 65+ Years) Preserv Free 11/25/2018,11/23/2017,12/08/2016 Pneumococcal Poly,23-Valent (Pneumovax) 01/21/2021,12/21/2013,12/20/2002 Pneumococcal conj 13-Valent (Prevnar 13) 02/14/2015 RSV, Recombinant ADJ Reconst ituted (Arexvy 120MCG/0.5mL) 12/02/2022 Td (Age >=7 Years) 01/01/2006 Tdap 04/15/2016 Tuberculin (PPD) 08/19/2002 Zoster (Shingrix-RZV, recombinant) 09/23/2022, Zoster (Zostavax-ZVL, live) 04/15/2016 Family History Medical History Relation Name Comments Cancer-prostate Brother 1 Sixt[place] Heart Disease Brother 2 [place] - age 50's Heart Disease Brother 3 [place] - age 50's Cancer Daughter cervical Heart Disease Father Tyrell [place] - age 70's Hypertension Father Tyrell Stroke Father Tyrell Cancer-colon Maternal Aunt Sakina Cancer-breast Maternal Grandmother Lyly Cancer-breast Mother Jesi Anesthesia Problem No Family History Cancer-ovarian No Family History Relation Name Status Comments Brother 1 Sixt[place] Brother 2 Brother 3 Daughter Father Tyrell Alive Maternal Aunt Sakina Alive Maternal Grandfather Maternal Grandmother Lyly Alive dx late 60's Mother Jesi Alive dx at age 48 Paternal Grandfather Paternal Grandmother Social History Tobacco Use Types Packs/Day Years Used Date Smoking Tobacco: Never Passive Smoke Exposure: Never Smokeless Tobacco: Never Tobacco Cessation:Counseling Given: Not Answered Alcohol Use Standard Drinks/Week Comments Yes 1 (1 standard drink = 0.6 oz pure alcohol) occasionally wine, beer or liquor - rare PHQ-2 Answer Date Recorded PHQ-2 TOTAL SCORE 0 01/21/2023 Social Connections Answer Date Recorded Do you often feel lonely or isolated from those around you? 0 06/13/2024 Financial Resource Strain Answer Date R ecorded Difficulty of Paying Living Expenses 3 06/13/2024 Difficulty of Paying Living Expenses Not on file 06/13/2024 Food Insecurity Answer Date Recorded Do you worry your food will run out before you are able to buy more? 1 06/13/2024 Transportation Needs Answer Date Record ed Does lack of transportation keep you from medica l appointments? 1 06/13/2024 Does lack of transportation keep you from work, meetings or getting things that you need? 1 06/13/2024 Housing Stability Answer Date Recorded What is your housing situation today? 1 06/13/2024 Utilities Answer Date Recorded Do you have trouble paying f or utilities (for example, heat, electricity, water, phone)? 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 Gender Identity Not on file Sexual Orientation Not on file Obstetrics History Para Term AB IAB SAB Ectopic Multiple Livin g Live Births 4 4 4 Date Outcome GA Total Labor Labor/2nd/3rd Weight Sex Type Anes PTL Teodora A1 A5 Name Clin Term Term Term Term Last Filed Vital Signs Vital Sign Reading Time Taken Comments Blood Pressure 136/92 08/23/2024 11:05 AM CDT Pulse 62 08/23/2024 11:05 AM CDT Temperature 35.7 C (96.3 F) 08/03/2024 8:50 AM CDT Respiratory Rate 18 08/03/2024 8:50 AM CDT Oxygen Saturation 98% 08/23/2024 11:05 AM CDT Inhaled Oxygen Concentration - - Weight 98.4 kg (217 lb) 08/23/2024 11:05 AM CDT Height 174.5 cm (5' 8.7) 08/23/2024 11:05 AM CD T Body Mass Index 32.32 08/23/2024 11:05 AM CDT Plan of Treatment Upcoming Encounters Date Type Department Care Team (Latest Contact Info) Description 08/31/2024 8:15 AM CDT Appointment [facility] [address] [place] [address] 08/31/2024 8:30 AM CDT Appointment [facility] [address] [address] 08/31/2024 9:30 AM CDT Appointment [facility] [address] [place] [address] 08/31/2024 9:45 AM CDT Appointment [facility] [address] [place] [address] 08/31/2024 1:36 PM CDT Hospital Encounter [facility] [address] [place] [address] Shakira Christie MD [address] [address] 08/31/2024 1:36 PM CDT - 08/31/2024 3:46 PM CDT Surgery [facility] [address] [place] [address] Shakira Christie MD [address] [address] Magnetic seed localized left breast lumpectomy with left sentinel lymph node biopsy 09/13/2024 1:45 PM CDT Office Visit [facility] [address] [address] Shakira Christie MD [address] [address] 09/29/2024 10:00 AM CDT Office Visit [facility] [address] [place] [address] Sarah Reza MD [address] [place] [address] 11/02/2024 10:20 AM CDT Telemedicine [facility] [address] [place] [phone] Patty Guzman NP [address] [place] [address] 01/02/2025 9:00 AM CDT Orders Only [facility] [address] [place] [address] [place] 01/05/2025 11:30 AM CDT Office Visit [facility] [address] [place] [address] Sarah Reza MD [address] [place] [address] Scheduled Procedures Name Priority Associated Diagnoses Date/Ti me LUMPECTOMY BREAST WITH MAGNETIC SEED LOCALIZATION AND SENTINEL LYMPH NODE BIOPSY Tier 2 Malignant 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, estrogen receptor positive (HC) 08/31/2024 1:36 PM CDT Health Maintenance Due Date Last Done Comments Medicare Wellness for age 65+ 01/22/2024 01/21/2023, 01/22/2022, 01/21/2021, Additional history exists Depression screening for age 12+ 02/04/2024 02/03/2023, 01/21/2023, 11/11/2022, Additional history exists COVID-19 vaccine series (9 - Pfizer risk 2023- season) 2024 12/10/2023, 12/10/2022, 09/23/2022, Additional history exists Colonoscopy through age 75 11/02/202411/02, 06/04/2023, 06/04/2023, Additional history exists Mammogram for age 45-75 07/14/2025 07/15/19, 07/04/2024, 07/02/2023, Additional history exists BMI (ht and wt on same day) for age 18+ 08/23/2025 08/23/2024, 08/03/2024, 04/27/2024, Additional history exists Tetanus booster 04/15/2026 04/15/2016, 12/08, 01/01/2006 (Completed outside of [facility]) Lipids for age 45-75 08/23/2029 08/23/2024, 07/07/2023, 06/11/2022, Additional history exists Tdap Completed 04/15/2016 Hepatitis C screening for age 18-79 Completed 06/13/2020 Pneumococcal series for age 50+ Completed 01/21/2021, 02/14/2015, 12/21/2013, Additional history exists DEXA/DXA scan for age 65+ Completed 2022, 01/18/2018, 03/29/2008 (Completed outside of [facility]) Zoster (shingles) series for age 50+ Completed 09/23/2022, 01/28/2022, 04/15/2016 RSV vaccine for adults or Completed 12/02/2022 Influenza Vaccine Completed 12/10/2023, , 12/14/2020, Additional history exists Hepatitis B series for 19+ Aged Out N o longer eligible based on patient's age to complete this topic Procedures Procedure Name Priority Date/Time Associated Diagnosis Comments LIPID PANEL W REFLEX MEASURED LDL Routine 08/23/2024 11:59 AM CDT Type 2 diabetes mellitus without complication, without long-term current use of insulin (HC) COMP METABOLIC PANEL Routine 08/23/2024 11:59 AM CDT Type 2 diabetes mellitus without complication, without long-term current use of insulin (HC) HEMOGLOBIN A1C Routine 08/23/2024 11:59 AM CDT Type 2 diabetes mellitus without complication, without long-term current use of insulin (HC) MR HEAD BRAIN WWO Routine 08/18/2024 8:5 9 AM CDT Headache syndrome Scalp pain MR ABDOMEN LIVER WWO STAT 08/05/2024 10:44 AM CDT Malignant 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, estrogen receptor positive (HC) CREATININE Today 08/03/2024 11:16 AM CDT Malignant 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, estrogen receptor positive (HC) MR BREAST CAD WWO BILATERAL GARRY 08/02/2024 6:37 AM CDT Malignant neoplasm of left female breast, unspecified estrogen receptor status, unspecified site of breast (HC) XR MAMMO POST CLIP PLCMT LT Routine 07/25/2024 11:53 AM CDT Abnormal mammogram US BIOPSY BREAST NEEDLE W PHUC W GUIDE LEFT GARRY 07/25/2024 11:50 AM CDT Abnormal mammogram PATH TISSUE EXAM Today 07/25/2024 11:3 2 AM CDT US BREAST UNILATERAL LEFT LIMITED GARRY 07/14/2024 2:34 PM CDT Abnormal mammogram XR MAMMO RICHAR UNI ADDL VIEWS LEFT GARRY 07/14/2024 2:15 PM CDT Abnormal mammogram XR MAMMO RICHAR BILAT SCREEN Routine 07/04/2024 9:55 AM CDT Visit for screening mammogram CBC WITH AUTO DIFFERENTIAL Routine 06/15/2024 9:59 AM CDT Malignant neoplasm of colon, unspecified part of colon (HC) HEPATIC FUNCTION PANEL Routine 06/15/2024 9:59 AM CDT Malignant neoplasm of colon, unspecified part of colon (HC) FERRITIN Routine 06/15/2024 9:59 AM CDT Malignant neoplasm of colon, unspecified part of colon (HC) IRON PLUS IRON BINDING CAP Routine 06/15/2024 9:59 AM CDT Malignant neoplasm of colon, unspecified part of colon (HC) VITAMIN B12 Routine 06/15/2024 9:59 AM CDT Malignant neoplasm of colon, unspecified part of colon (HC) CEA Routine 06/15/2024 9:59 AM CDT Malignant neoplasm of colon, unspecified part of colon (HC) US NECK OR HEAD SOFT TISSUE Routine 06/13/2024 3:30 PM CDT Lump of ear, left COLONOSCOPY 11/03/2023 11:54 AM CDT XR DXA BONE DENSITY 2 SITES AXIAL Routine 08/07/2022 1:19 PM CDT Exocrine pancreatic insufficiency (HC) Bariatric surgery status ANTI HCV Add On 06/13/2020 2:29 PM CDT Need for hepatitis C screening test from Last 3 Months or Most Recently Relevant to Health Maintenance Results * HEMOGLOBIN A1C (08/23/2024 11:59 AM CDT) HEMOGLOBIN A1C 5.5 <5.7 % [employer] Comment: For the purpose of screening for the presence of diabetes: <5.7% Consistent with the absence of diabetes 5.7-6.4% Consistent with increased risk for diabetes (prediabetes) > or =6.5% Consistent with diabetes This assay result is consistent with a decreased risk of diabetes. Currently, no consensus exists regarding use of hemoglobin A1c for diagnosis of diabetes in children. According to [place] Diabetes Association (ADA) guidelines, hemoglobin A1c <7.0% represents optimal control in non- diabetic patients. Different metrics may apply to specific patient populations. Standards of Medical Care in Diabetes(ADA). Blood BLOOD SPECIMEN / Unknown 08/23/2024 11:59 AM CDT 08/23/2024 12:00 PM CDT Narrative [facility] - 08/24/2024 4:59 AM CDT FASTING:NO FASTING: NO us Velma RICARDO CHEMISTRY Final Resu lt [employer] [facility] [address] [place] [address], [facility] [address] [place] [address] * LIPID PANEL W REFLEX MEASURED LDL (08/23/2024 11:59 AM CDT) [facility] CHOLESTEROL, TOTAL 178 <200 mg/dL [facility] HDL CHOLESTEROL 67 > OR = 50 mg/dL [facility] TRIGLYCERIDES 108 <150 mg/dL [facility] LDL-CHOLESTEROL 91 mg/dL (calc) [facility] Comment: Reference range: <100 Desirable range <100 mg/dL for primary prevention; <70 mg/dL for patients with CHD or diabetic patients with > or = 2 CHD risk factors. LDL-C is now calculated using the Ankit-Dragan calculation, which is a validated novel method providing better accuracy than the Friedewald equation in the estimation of LDL-C. Ankit CARRIZALES et al. MARVIN. 2013;310(19): 1230-4303 (http://education.[employer]/faq/HRE979) CHOL/HDLC RATIO 2.7 <5.0 (calc) [facility] NON HDL CHOLESTEROL 111 <130 mg/dL (calc) [facility] Comment: For patients with diabetes plus 1 major ASCVD risk factor, treating to a non-HDL-C goal of <100 mg/dL (LDL-C of <70 mg/dL) is considered a therapeutic option. Blood BLOOD SPECIMEN / Unknown 08/23/2024 11:59 AM CDT 08/23/2024 12:00 PM CDT Narrative [facility] - 08/24/2024 4:48 AM CDT FASTING:NO FASTING: NO Velma RICARDO CHEMISTRY Final Resu lt [facility] [address] [place] [address], [facility] [address] [place] [address] * COMP METABOLIC PANEL (08/23/2024 11:59 AM CDT) Pathologist [facility] GLUCOSE 76 65 - 139 mg/dL [facility] Comment: Non-fasting reference interval UREA NITROGEN (BUN) 17 7 - 25 mg/dL [facility] CREATININE 0.90 0.60 - 1.00 mg/dL [facility] EGFR 67 > OR = 60 mL/min/1. 73m2 [facility] BUN/CREATININE RATIO SEE NOTE: 6 - 22 (calc) [facility] Comment: Not Reported: BUN and Creatinine are within reference range. SODIUM 142 135 - 146 mmol/L [facility] POTASSIUM 4.2 3.5 - 5.3 mmol/L [facility] CHLORIDE 105 98 - 110 mmol/L [facility] CARBON DIOXIDE 29 20 - 32 mmol/L [facility] CALCIUM 9.2 8.6 - 10.4 mg/dL [facility] PROTEIN, TOTAL 6.6 6.1 - 8.1 g/dL [facility] ALBUMIN 3.9 3.6 - 5.1 g/dL [facility] GLOBULIN 2.7 1.9 - 3.7 g/dL (calc) [facility] ALBUMIN/GLOBULIN RATIO 1.4 1.0 - 2.5 (calc) [facility] BILIRUBIN, TOTAL 0.3 0.2 - 1.2 mg/dL [facility] ALKALINE PHOSPHATASE 132 37 - 153 U/L [facility] AST 16 10 - 35 U/L [facility] ALT 14 6 - 29 U/L [facility] Blood BLOOD SPECIMEN / Unknown 08/23/2024 11:59 AM CDT 08/23/2024 12:00 PM CDT Narrative [facility] - 08/24/2024 4:48 AM CDT FASTING:NO FASTING: NO us Velma RICARDO CHEMISTRY Final Resu lt [facility] [address] [place] [address], [facility] [address] [place] [address] * MR HEAD BRAIN WWO (08/18/2024 8:59 AM CDT) Anatomical Region Laterality Modality BRAIN, HEAD Magnetic Resonan ce 08/18/2024 8:59 AM CDT Impressions 08/19/2024 9:56 AM CDT 1. No acute infarct or acute intracranial hemorrhage. 2. Enhancing extra-axial lesion in the left anterior cranial fossa inferior to the left frontal lobe, most compatible with a meningioma. 3. Generalized brain atrophy and presumed microvascular ischemic changes as detailed above. Narrative 08/19/2024 9:56 AM CDT For Patients: As a result of the Century Cures Act, medical imaging exams and procedure reports are released immediately into your electronic medical record. You may view this report before your referring provider. If you have questions, please contact your health care provider. EXAM: MR HEAD BRAIN WWO LOCATION: [facility] DATE: 08/18/2024 INDICATION: Headache Syndrome Scalp Pain headache, specifically left side of head/scalp, constant COMPARISON: CT head without contrast 07/20/2019. MRI of the brain 07/07/2018. CONTRAST: Clariscan 20ml TECHNIQUE: Routine multiplanar multisequence head MRI without and with intravenous contrast. FINDINGS: INTRACRANIAL CONTENTS: No acute or subacute infarct. There is an enhancing extra-axial lesion in the left anterior cranial fossa measuring 0.7 x 0.9 x 0.6 cm in the transverse by AP by craniocaudad dimensions. Lesion was present on comparison CT head imaging and is partially calcified. There is an adjacent enhancing dural tail. No adjacent parenchymal edema. No mass, acute hemorrhage, or extra-axial fluid collections. Scattered nonspecific T2/FLAIR hyperintensities within the cerebral white matter most consistent with mild chronic microvascular ischemic change. Mild generalized cerebral atrophy. No hydrocephalus. Mild cerebellar atrophy. SELLA: The sella is partially empty. OSSEOUS STRUCTURES/SOFT TISSUES: Heterogeneous calvarial bone marrow signal. The major intracranial vascular flow voids are maintained. ORBITS: No abnormality accounting for technique. SINUSES/MASTOIDS: Minimal mucosal thickening scattered about the paranasal sinuses. No middle ear or mastoid effusion. Procedure Note Frank Cordero MD - 08/19/2024 For Patients: As a result of the Cures Act, medical imagingexams and procedure reports are released immediately into your electronicmedical record. You may view this report before your referring provider.If you have questions, please contact your health care provider. EXAM: MR HEAD BRAIN [facility] LOCATION: [facility] DATE: 08/18/2024 INDICATION: Headache Syndrome Scalp Pain headache, specifically left side of head/scalp, constant COMPARISON: CT head without contrast 07/20/2019. MRI of the brain07/07/2018. CONTRAST: Clariscan 20ml TECHNIQUE: Routine multiplanar multisequence head MRI without and withintravenous contrast. FINDINGS: INTRACRANIAL CONTENTS: No acute or subacute infarct. There is an enhancingextra- axial lesion in the left anterior cranial fossa measuring 0.7 x 0.9x 0.6 cm in the transverse by AP by craniocaudad dimensions. Lesion waspresent on comparison CT head imaging and is partially calcified. There isan adjacent enhancing dural tail. No adjacent parenchymal edema. No mass,acute hemorrhage, or extra-axial fluid collections. Scattered nonspecificT2/FLAIR hyperintensities within the cerebral white matter most consistentwith mild chronic microvascular ischemic change. Mild generalized cerebralatrophy. No hydrocephalus. Mild cerebellar atrophy. SELLA: The sella is partially empty. OSSEOUS STRUCTURES/SOFT TISSUES: Heterogeneous calvarial bone marrowsignal. The major intracranial vascular flow voids are maintained. ORBITS: No abnormality accounting for technique. SINUSES/MASTOIDS: Minimal mucosal thickening scattered about the paranasalsinuses. No middle ear or mastoid effusion. IMPRESSION: 1. No acute infarct or acute intracranial hemorrhage. 2. Enhancing extra-axial lesion in the left anterior cranial fossainferior to the left frontal lobe, most compatible with a meningioma. 3. Generalized brain atrophy and presumed microvascular ischemic changesas detailed above. us Velma RICARDO MR Final Resu lt * MR ABDOMEN LIVER WWO (08/05/2024 10:44 AM CDT) Anatomical Region Laterality Modality Abdomen, LIVER Magnetic Resonan ce 08/05/2024 11:1 3 AM CDT Impressions 08/05/2024 11:13 AM CDT 1. Incidental liver lesion likely a cavernous hemangioma left lobe segment II. This appears benign. No sign of a metastatic lesion. 2. Colonic interposition anatomic variation right upper quadrant. 3. Marked decreased signal intensity of the background liver could suggest iron overload. Biochemical correlation suggested including serum ferritin. Follow-up quantitative iron MRI exam of the liver could be considered. Correlate with any history of multiple transfusions. Dictated by Enio Long MD @ 08/05/2024 11:13:42 AM (Electronically Signed) Narrative 08/05/2024 11:13 AM CDT For Patients: As a result of the Century Cures Act, medical imaging exams and procedure reports are released immediately into your electronic medical record. You may view this report before your referring provider. If you have questions, please contact your health care provider. INDICATION : Breast carcinoma. Liver lesion. TECHNIQUE: Abdominal MRI T1-T2 and post-contrast T1. Diffusion weighting. Contrast: Intravenous gadolinium Clariscan 20 cc. COMPARISON : Breast MRI 08/02/2024 FINDINGS: Liver: Marked T1 decreased signal intensity and T2 hypointensity of the background liver parenchyma. Left hepatic lobe lesion 13 millimeters with increased T2 signal. Early discontinuous nodular peripheral enhancement and gradual peripheral to central enhancement. No intrahepatic biliary dilatation. Normal reservoir effect is present. The gallbladder is absent. Incidental anterior and superior colonic interposition near the right diaphragm anatomic variant. Biliary tree:Gallbladder absent, normal caliber intra and extrahepatic ducts. Normal reservoir effect. Spleen, pancreas, adrenal glands: Unremarkable. Kidneys:Unremarkable, no masses or hydronephrosis. Parapelvic cysts in the left kidney. Lymph nodes: No suspicious adenopathy. Ascites: Absent. Miscellaneous: Lumbar disc degeneration. Procedure Note Enio Long MD - 08/05/2024 For Patients: As a result of the Cures Act, medical imagingexams and procedure reports are released immediately into your electronicmedical record. You may view this report before your referring provider.If you have questions, please contact your health care provider. INDICATION : Breast carcinoma. Liver lesion. TECHNIQUE: Abdominal MRI T1-T2 and post-contrast T1. Diffusion weighting. Contrast: Intravenous gadolinium Clariscan 20 cc. COMPARISON : Breast MRI 08/02/2024 FINDINGS: Liver: Marked T1 decreased signal intensity and T2 hypointensity of thebackground liver parenchyma. Left hepatic lobe lesion 13 millimeters with increased T2 signal. Earlydiscontinuous nodular peripheral enhancement and gradual peripheral tocentral enhancement. No intrahepatic biliary dilatation. Normal reservoir effect is present.The gallbladder is absent. Incidental anterior and superior colonic interposition near the rightdiaphragm anatomic variant. Biliary tree:Gallbladder absent, normal caliber intra and extrahepaticducts. Normal reservoir effect. Spleen, pancreas, adrenal glands: Unremarkable. Kidneys:Unremarkable, no masses or hydronephrosis. Parapelvic cysts in theleft kidney. Lymph nodes: No suspicious adenopathy. Ascites: Absent. Miscellaneous: Lumbar disc degeneration. IMPRESSION: 1. Incidental liver lesion likely a cavernous hemangioma left lobe segmentII. This appears benign. No sign of a metastatic lesion. 2. Colonic interposition anatomic variation right upper quadrant. 3. Marked decreased signal intensity of the background liver could suggestiron overload. Biochemical correlation suggested including serum ferritin.Follow-up quantitative iron MRI exam of the liver could be considered.Correlate with any history of multiple transfusions. Dictated by Enio Long MD @ 08/05/2024 11:13:42 AM (Electronically Signed) us Shakira Christie MD MR Final Res ult * (ABNORMAL) CREATININE (08/03/2024 11:16 AM CDT) eGFR 65(L) >90 mL/min/1.7 3m2 08/03/2024 11:55 AM CDT [facility] [employer] Comment:As of 2021, eG FR is calculated by the CKD-EPI creatinine equation without race adjustment. eGFR can be influenced by muscle mass, exercise, and diet. The reported eGFR is an estimation only and is only applicable if the renal function is stable. CREATININE 0.92(H) 0.50 - 0.90 mg/dL 08/03/2024 11:55 AM CDT [facility] Blood BLOOD SPECIMEN / Unknown Venipuncture / Unknown 08/03/2024 11:16 AM CDT 08/03/2024 11:22 AM CDT us Shakira Christie MD CHEMISTRY Final Res ult [facility] [address] [place] [address], * MR BREAST CAD WWO BILATERAL (08/02/2024 6:37 AM CDT) Anatomical Region Laterality Modality BREASTS, Breast Left, Breast Right Bilateral Magnetic Resonance 08/02/2024 11:0 5 AM CDT Narrative 08/02/2024 11:31 AM CDT For Patients: As a result of the Century Cures Act, medical imaging exams and procedure reports are released immediately into your electronic medical record. You may view this report before your referring provider. If you have questions, please contact your health care provider. BILATERAL BREAST MRI WITHOUT AND WITH GADOLINIUM, 08/02/2024 CLINICAL HISTORY: New diagnosis LEFT breast cancer in a 73-year-old female. Invasive lobular carcinoma grade 2. Strong family history of breast cancer. Personal history of colon cancer in 2023. INDICATION FOR BREAST MRI: Staging of newly diagnosed breast cancer and screening of contralateral breast. Regional lymph nodes will also be assessed. COMPARISON STUDIES: Screening mammogram July 04, 2024, LEFT breast diagnostic mammogram July 14, 2024, LEFT breast ultrasound July 14, 2024, LEFT breast ultrasound-guided biopsy July 25, 2024. CONTRAST: 30 mL Clariscan IV. TECHNIQUE: The patient was positioned prone using a breast coil. Multiple imaging sequences were obtained using 1-1.5 mm thick slices with no gap. The image sequences include T2-weighted STIR in the axial plane, T1-weighted nonfat-saturated gradient echo in the axial plane, pre- and post-contrast T1-weighted FLASH 3D with fat suppression in the axial plane, and T1-weighted FLASH high resolution 3D with fat suppression in the sagittal plane. Image post-processing was performed on a [employer] workstation. Complex 3D rendering including maximum intensity projections (MIPS) and volumetric renderings were obtained to optimize visualization of the extent of pathology and relationship to the nipple, skin, and chest wall. This aids in determining feasibility of breast conservation surgery. Subtraction, multiplanar reconstruction, mean curve determination, and angiogenesis mapping were also performed. The study was technically adequate. FINDINGS: Amount of Fibroglandular Tissue: Scattered. Breast Background Enhancement: Mild. RIGHT Breast: No suspicious mass or non-mass enhancement. LEFT Breast: At the biopsy site of the LEFT breast cancer there is mixed non-mass and mass-enhancement measuring 3.2 x 1.1 x 1.1 cm. The marker clip seen within. Location 9 o'clock 11 cm from the nipple the remainder of the LEFT breast is negative. Lymph Nodes: No enlarged or morphologically abnormal lymph nodes identified Other findings: Enhancing liver mass identified in the left lobe of the liver. IMPRESSIONS AND RECOMMENDATIONS: 1. New LEFT breast cancer is identified as a mixed mass and non-mass area of enhancement measuring 3.2 x 1.1 x 1.1 cm. 2. The RIGHT breast is negative. 3. No suspicious lymph nodes. 4. Liver mass requires additional work up to rule out malignancy, a liver MR without and with contrast. BI-RADS: 5-obhwch-kblina malignancy Dictated by: Deonna Montesinos MD @08/02/2024 11:05:14 AM CRL/djw us Shakira Christie MD MR Final Res ult * XR MAMMO POST CLIP PLCMT LT (07/25/2024 11:53 AM CDT) Anatomical Region Laterality Modality BREASTS N/A Mammography Narrative 07/25/2024 4:43 PM CDT As a result of the Cures Act, medical imaging exams and procedure reports are released immediately into your electronic medical record. You may view this report before your referring provider. If you have questions, please contact your health care provider. LEFT BREAST POST-BIOPSY MAMMOGRAM CLIP PLACEMENT 07/25/2024 PLEASE SEE [id number] FOR REPORT OF LEFT BREAST BIOPSY OF SAME DAY. us Velma Sosa PA MAMMO Final Resu lt * US BIOPSY BREAST NEEDLE W PHUC W GUIDE LEFT (07/25/2024 11:50 AM CDT) Anatomical Region Laterality Modality Breast Left Left Ultrasound, Othe r 07/25/2024 12:5 9 PM CDT Addenda Addendum by Carly Sargent MD on 07/27/2024 10:44 AM CDT For Patients: As a result of the Cures Act, medical imaging exams and procedure reports are released immediately into your electronic medical record. You may view this report before your referring provider. If you have questions, please contact your health care provider. ADDENDUM ADDENDUM ADDENDUM Pathologic findings: LEFT BREAST, 9-10:00, 11 CM FROM NIPPLE, ULTRASOUND-GUIDED CORE BIOPSY: Invasive lobular carcinoma RadPath Correlation: Imaging reviewed by Dr. Montesinos. Pathologic findings are concordant with radiologic findings. Recommendations: Surgical consultation is recommended. Notification: Patient was notified by a [facility] nurse on 07/26/2024. A member of the [facility] cancer care coordination team will contact the patient to schedule surgical consultation. Caren Wheeler, MSN, RN, ALUMNI RELATIONS COORDINATOR [employer] [facility] [email or web address] CRL:mar Impressions 07/25/2024 4:43 PM CDT Ultrasound-guided breast biopsy. When the pathology report is available, an addendum to this report will be made. ACR not applicable Dictated by: Carly Purcell MD @07/25/2024 12:59:41 PM /sp Narrative 07/25/2024 4:43 PM CDT For Patients: As a result of the 21st Century Cures Act, medical imaging exams and procedure reports are released immediately into your electronic medical record. You may view this report before your referring provider. If you have questions, please contact your health care provider. ULTRASOUND-GUIDED LEFT BREAST BIOPSY AND POST-BIOPSY DIGITAL MAMMOGRAM FOR BIOPSY MARKER PLACEMENT, 07/25/2024 CLINICAL HISTORY: Suspicious mass with LEFT 9-10 o'clock location, 11 cm from the nipple, measuring 0.8 x 0.6 x 0.9 cm. COMPARISON STUDIES: 07/04/2024, 07/14/2024. TECHNIQUE: Real-time ultrasound with image documentation was used for targeting the breast lesion. Core biopsy specimens were obtained using an automated gun with a 14-gauge biopsy needle. Post-biopsy CC and ML digital mammograms were obtained to document position of the biopsy marker. CONSENT and TIME OUT: The procedure, risks, and alternatives were explained to the patient and a consent was signed. [place] Protocol was followed including pre-procedure verification that relevant information/documentation was available, reviewed and properly matched to the patient; consent accurate and complete; and equipment and supplies available. Time Out was conducted just prior to starting procedure to verify the four required elements: patient identity, correct side/site marked (if applicable), procedure, relevant images/results properly labeled and displayed (if applicable). PROCEDURE: The patient was positioned supine on the ultrasound table. The breast was prepped with Betadine or ChloraPrep. 3 cc of 1% lidocaine was injected for superficial anesthesia and 5 cc of 1% lidocaine with epinephrine was injected for deeper anesthesia. Core samples were obtained. A sterile metal biopsy clip was placed percutaneously to phuc the lesion position within the breast. The specimens were placed in 10% formalin and sent to the pathology department. Pressure was held on the biopsy site until all bleeding subsided. The skin incision was closed with Steri-Strips. An ice pack was positioned over the biopsy site. Post-biopsy instructions were reviewed with the patient, and a written copy was given to her. LATERALITY: LEFT. LESION: Irregular hypoechoic mass with spiculated margins at 9-10 o'clock, 11 cm from the nipple. SUSPICION FOR MALIGNANCY: Intermediate. NUMBER OF SAMPLES: 5. BIOPSY CLIP SHAPE: Vision. PROXIMITY OF CLIP TO TARGET: Vision clip is appropriately placed immediately adjacent to the superior lateral margin of the mass. us Velma RICARDO US Edited Res ult - Final * PATH TISSUE EXAM (07/25/2024 11:32 AM CDT) Case Report Pathology Report Case: [id number] Authorizing Provider: Mike Purcell Carly Collected: 07/25/2024 113Lisandra Dennison MD Ordering Location: [facility] Received: 07/25/[address] [place] [address] Pathologist: Alfredo Dumont MD Specimen: Left Breast Core Ultrasound Biopsy 1:31 PM CDT [facility] Amendment 07/27/2024 - Amendmen t issued to incorporate ancillary studies. 1:31 PM CDT [facility]- [facility] Final Diagnosis A) LEFT BREAST, 9-10:00, 11 CM FROM NIPPLE, ULTRASOUND-GUIDED CORE BIOPSY: 1. Invasive lobular carcinoma a. Mckenna grade: II of III; Mckenna score: 6 of 9 b. Angio-lymphatic invasion: Absent c. Associated LCIS: Present 2. Breast Ancillary Testing: a. Hormone Receptors: Estrogen receptor: Positive (99%, strong staining) Progesterone receptor: Positive (95%, strong staining) b. HER2 by IHC: Negative (1+ by manual morphometry) c. Ki-67: 5% 1:31 PM CDT [facility]- [facility] Amendment electronically signed by Spenser Nuñez MD on 07/27/2024 at 1331 CDT at 1420 CDT Comment A) This is an image-guided breast biopsy. The pathologic findings should be correlated with radiologic and clinical findings prior to treatment decisions. Case seen in consultation with Dr. Gatica. 1:31 PM CDT [facility] Clinical Information A) LATERALITY: LEFT. LESION: Irregular hypoechoic mass with spiculated margins at 9-10 o'clock, 11 cm from the nipple. SUSPICION FOR MALIGNANCY: Intermediate. NUMBER OF SAMPLES: 5. BIOPSY CLIP SHAPE: Vision. PROXIMITY OF CLIP TO TARGET: Vision clip is appropriately placed immediately adjacent to the superior lateral margin of the mass. 1:31 PM CDT [facility] Gross Description A) Label: Patient's name and left Description: 6 Fibrofatty core biopsies Size: Ranging from 0.4-1.6 cm in length by 0.2 cm in diameter Ink color: Black The specimen is submitted in toto in one cassette. Cold ischemic time: Less than 60 minutes, meets current ASCO/CAP guidelines. The specimen was fixed in formalin for a minimum of 6 hours and not longer than 72 hours. EVM 07/25/2024 1:31 PM CDT [facility] Microscopic Description The final diagnosis is based on microscopic examination of appropriate sections of all specimens. A) The presence of black ink is confirmed on tissue sections. Immunohistochemistry for E-cadherin on A1 demonstrates loss of membranous expression. 1:31 PM T [facility] SYNOPTIC REPORTING Breast Biomarker Reporting Template BREAST BIOMARKER REPORTING TEMPLATE - A Protocol posted: 02/18/2023 Test(s) Performed: Estrogen Receptor (ER) Status: Positive (greater than 10% of cells demonstrate nuclear positivity) Percentage of Cells with Nuclear Positivity: 99 % Average Intensity of Staining: Strong Test Type: Laboratory-developed test Primary Antibody: SP1 Test(s) Performed: Progesterone Receptor (PgR) Status: Positive Percentage of Cells with Nuclear Positivity: 95 % Average Intensity of Staining: Strong Test Type: Laboratory-developed test Primary Antibody: 16 Test(s) Performed: HER2 by Immunohistochemistry: Negative (Score 1+) Test Type: Laboratory-developed test Primary Antibody: 4B5 Test(s) Performed: Ki-67 Ki-67 Percentage of Positive Nuclei: 5 % Primary Antibody: MIB1 Cold Ischemia and Fixation Times: Meet requirements specified in latest version of the ASCO / CAP Guidelines Testing Performed on Block Number(s): A1 METHODS Fixative: Formalin Image Analysis: Performed Method: Aperio morphometric analysis Biomarkers Scored by Image Analysis: ER Biomarkers Scored by Image Analysis: PgR Biomarkers Scored by Image Analysis: Ki-67 Comment(s): 1,533 nuclei were analyzed for Ki-67. HER2 immunohistochemistry (score) was evaluated by manual morphometry 1:31 PM T [facility] Additional Information Patients with breast cancers that are HER2 IHC 3+ or IHC 2+/JOE amplified may be eligible for several therapies that disrupt HER2 signaling pathways. Invasive breast cancers that test 'HER2-negative' (IHC 0, 1+ or 2+/JOE not-amplified) are more specifically considered 'HER2-negative for protein overexpression/gene amplification' since non-overexpressed levels of the HER2 protein may be present in these cases. Patients with breast cancers that are HER2 IHC 0 - UltraLow, HER2 IHC 1+ or IHC 2+/JOE not amplified may be eligible for a treatment that targets non-amplified/non-over expressed levels of HER2 expression for cytotoxic drug delivery (IHC 0 - Null results do not result in eligibility currently). Interpreted at [facility], Central Laboratory - [address] [place] [address] [address] [facility] [address], [place] [address] Immunohistochemistry controls were reviewed and approved as appropriate by the pathologist during this examination. 1:31 PM CDT [facility] Other (Left Breast Core Ultrasound Biopsy) 07/25/2024 11:32 AM CDT 07/25/2024 1:51 PM CDT us Carly Purcell MD PATHOLOGY/CYTOLO GY Edited Result - Final [facility] [address] [place] [address], [place] * US BREAST UNILATERAL LEFT LIMITED (07/14/2024 2:34 PM CDT) Anatomical Region Laterality Modality BREASTS, Breast Left, Breast Right Left Ultrasound Narrative 07/14/2024 3:39 PM CDT For Patients: As a result of the Century Cures Act, medical imaging exams and procedure reports are released immediately into your electronic medical record. You may view this report before your referring provider. If you have questions, please contact your health care provider. LEFT BREAST ULTRASOUND, 07/14/2024 PLEASE SEE [id number] FOR DIGITAL LEFT MAMMOGRAM SAME DAY. us Velma Sosa PA US Final Resu lt * XR MAMMO RICHAR UNI ADDL VIEWS LEFT (07/14/2024 2:15 PM CDT) Anatomical Region Laterality Modality BREASTS, Breast Left Mammography 07/14/2024 3:03 PM CDT Impressions 07/14/2024 3:39 PM CDT Suspicious nodule LEFT breast 9 o'clock 11 cm from the nipple measuring 8 x 6 x 9 millimeters. RECOMMENDATIONS: Ultrasound-guided core needle biopsy. Results and recommendations were discussed with the patient at the time of the exam. BI-RADS Category 4: Suspicious Dictated by: Alfredo Cintron MD @07/14/2024 3:03:44 PM/mar PATIENTS: You will also receive a letter with your examination results in an easy to read format. If you have questions about your results, please contact your referring provider. Narrative 07/14/2024 3:39 PM CDT For Patients: As a result of the Cures Act, medical imaging exams and procedure reports are released immediately into your electronic medical record. You may view this report before your referring provider. If you have questions, please contact your health care provider. ADDITIONAL VIEWS LEFT DIGITAL MAMMOGRAM USING TOMOSYNTHESIS, 07/14/2024 LEFT BREAST ULTRASOUND, 07/14/2024 CLINICAL HISTORY: LEFT breast mass/asymmetry. COMPARISON: 07/04/2024. TECHNIQUE: Digital LEFT mammogram in two projections. Tomosynthesis was used in this interpretation. Real-time ultrasound imaging of LEFT breast with imaging documentation. BREAST COMPOSITION: There are scattered areas of fibroglandular density. FINDINGS: 3D spot compression CC/MLO LEFT breast mammogram images submitted. Suspicious mass is present within the medial LEFT breast with subtle architectural distortion. No suspicious calcifications. Targeted LEFT breast ultrasound performed. At 9 o'clock 11 cm from the nipple there is a taller than wide hypoechoic shadowing nodule which measures 8 x 6 x 9 millimeters. us Velma RICARDO MAMMO Final Resu lt * XR MAMMO RICHAR BILAT SCREEN (07/04/2024 9:55 AM CDT) Anatomical Region Laterality Modality BREASTS, Breast Left, Breast Right Bilateral Mammography 07/06/2024 12:3 7 PM CDT Impressions 07/06/2024 2:00 PM CDT LEFT breast focal asymmetry with possible architectural distortion. RECOMMENDATIONS: Additional mammographic views of the LEFT breast including 90-degree lateral, spot compression CC and MLO. LEFT breast ultrasound may also be required. A member of the health care team will contact the patient to schedule the required additional imaging appointment(s). BI-RADS Category 0: Incomplete: Need Additional Imaging Evaluation Dictated by: Maxine Crane MD @07/06/2024 12:37:58 PM/mar PATIENTS: You will also receive a letter with your examination results in an easy to read format. If you have questions about your results, please contact your referring provider. Narrative 07/06/2024 2:00 PM CDT For Patients: As a result of the Century Cures Act, medical imaging exams and procedure reports are released immediately into your electronic medical record. You may view this report before your referring provider. If you have questions, please contact your health care provider. BILATERAL DIGITAL SCREENING MAMMOGRAM WITH COMPUTER-AIDED DETECTION AND TOMOSYNTHESIS, 07/04/2024 CLINICAL HISTORY: Routine screening exam. COMPARISON: Mammogram 07/02/2023, 06/30/2022 and 06/17/2021. TECHNIQUE: Digital mammogram in CC and MLO projections including computer-aided detection (CAD) and tomosynthesis. BREAST COMPOSITION: There are scattered areas of fibroglandular density. FINDINGS: RIGHT Breast: No suspicious findings. LEFT Breast: There is a focal asymmetry with possible architectural distortion at 9-10 o'clock, posterior depth. Velma RICARDO MAMMO Final Resu lt * (ABNORMAL) IRON PLUS IRON BINDING CAP (06/15/2024 9:59 AM CDT) IRON, TOTAL 35(L) 45 - 160 mcg/dL [facility] IRON BINDING CAPACITY 457(H) 250 - 450 mcg/dL (calc) [facility] % SATURATION 8(L) 16 - 45 % (calc) [facility] Blood BLOOD SPECIMEN / Unknown 06/15/2024 9:59 AM CDT 06/15/2024 9:59 AM CDT Sarah Reza MD CHEMISTRY Final Resu lt [facility] [address] [place] [address], [facility] [address] [place] [address] * (ABNORMAL) CBC AND DIFFERENTIAL (06/15/2024 9:59 AM CDT) [facility] WHITE BLOOD CELL COUNT 6.3 3.8 - 10.8 Thousand/u L [facility] RED BLOOD CELL COUNT 4.79 3.80 - 5.10 Million/uL [facility] HEMOGLOBIN 11.4(L) 11.7 - 15.5 g/dL [facility] HEMATOCRIT 38.0 35.0 - 45.0 % [facility] MCV 79.3(L) 80.0 - 100.0 fL [facility] MCH 23.8(L) 27.0 - 33.0 pg [facility] MCHC 30.0(L) 32.0 - 36.0 g/dL [facility] Comment: For adults, a slight decrease in the calculated MCHC value (in the range of 30 to 32 g/dL) is most likely not clinically significant; however, it should be interpreted with caution in correlation with other red cell parameters and the patient's clinical condition. RDW 15.7(H) 11.0 - 15.0 % [facility] PLATELET COUNT 389 140 - 400 Thousand/u L [facility] MPV 10.0 7.5 - 12.5 fL [facility] ABSOLUTE NEUTROPHILS 4,057 1,500 - 7,800 cells/uL [facility] ABSOLUTE LYMPHOCYTES 1,386 850 - 3,900 cells/uL [facility] ABSOLUTE MONOCYTES 536 200 - 950 cells/uL [facility] ABSOLUTE EOSINOPHILS 239 15 - 500 cells/uL [facility] ABSOLUTE BASOPHILS 82 0 - 200 cells/uL [facility] NEUTROPHILS 64.4 % [facility] LYMPHOCYTES 22.0 % [facility] MONOCYTES 8.5 % [facility] EOSINOPHILS 3.8 % [facility] BASOPHILS 1.3 % [facility] Blood BLOOD SPECIMEN / Unknown 06/15/2024 9:59 AM CDT 06/15/2024 9:59 AM CDT Sarah Reza MD HEMATOLOGY Final Resu lt [facility] [address] [place] [address], [place] [phone] [facility] [address] [place] [address] * (ABNORMAL) FERRITIN (06/15/2024 9:59 AM CDT) FERRITIN 6(L) 16 - 288 ng/mL [facility] Blood BLOOD SPECIMEN / Unknown 06/15/2024 9:59 AM CDT 06/15/2024 9:59 AM CDT us Sarah Reza MD CHEMISTRY Final Resu lt [facility] [address] [place] [address], [place] [phone] [facility] [address] [facility] [place] [address] * (ABNORMAL) VITAMIN B12 (06/15/2024 9:59 AM CDT) VITAMIN B12 >2000(H) 200 - 1100 pg/mL [facility] Blood BLOOD SPECIMEN / Unknown 06/15/2024 9:59 AM CDT 06/15/2024 9:59 AM CDT us Sarah Reza MD CHEMISTRY Final Resu lt Performing Organization Address [facility]/ZIP Co de Phone Number [employer] [facility] [address] [place] [address], [place] [phone] [facility] [address] [place] [address] * CEA (06/15/2024 9:59 AM CDT) Pathologist [facility] CEA <2.0 See Note: ng/mL [facility] Comment: Reference Range: Non-Smoker: <2.5 Smoker: <5.0 This test was performed using the Siemens chemiluminescent method. Values obtained from different assay methods cannot be used interchangeably. CEA levels, regardless of value, should not be interpreted as absolute evidence of the presence or absence of disease. Blood BLOOD SPECIMEN / Unknown 06/15/2024 9:59 AM CDT 06/15/2024 9:59 AM CDT Sarah Reza MD CHEMISTRY Final Resu lt Performing Organization Address [facility]/State/ZIP Co de Phone Number [employer] [facility] [address] [place] [phone], [facility] [address] [place] [phone] * HEPATIC FUNCTION PANEL (06/15/2024 9:59 AM CDT) Pathologist [facility] PROTEIN, TOTAL 6.9 6.1 - 8.1 g/dL [facility] ALBUMIN 3.9 3.6 - 5.1 g/dL [facility] GLOBULIN 3.0 1.9 - 3.7 g/dL (calc) [facility] ALBUMIN/GLOBULIN RATIO 1.3 1.0 - 2.5 (calc) [facility] BILIRUBIN, TOTAL 0.4 0.2 - 1.2 mg/dL [facility] BILIRUBIN, DIRECT 0.1 < OR = 0.2 mg/dL [facility] BILIRUBIN, INDIRECT 0.3 0.2 - 1.2 mg/dL (calc) [facility] ALKALINE PHOSPHATASE 145 37 - 153 U/L [facility] AST 15 10 - 35 U/L [facility] ALT 10 6 - 29 U/L [facility] Blood BLOOD SPECIMEN / Unknown 06/15/2024 9:59 AM CDT 06/15/2024 9:59 AM CDT us Sarah eRza MD CHEMISTRY Final Resu lt [facility] [address] [place] [address], [facility] [address] [place] [address] * US NECK OR HEAD SOFT TISSUE (06/13/2024 3:30 PM CDT) Anatomical Region Laterality Modality NECK Ultrasound 06/13/2024 4:24 PM CDT Narrative 06/13/2024 4:24 PM CDT For Patients: As a result of the Cures Act, medical imaging exams and procedure reports are released immediately into your electronic medical record. You may view this report before your referring provider. If you have questions, please contact your health care provider. Indication: Lump of left ear Technique: Grayscale and color Doppler ultrasound of the left posterior auricular soft tissues performed. Comparison: CT 07/20/2019 Findings: No fluid collection or mass. No abnormal vascularity. Impression: Negative sonogram. No suspicious findings. Dictated by Alfredo Cintron MD @ 06/13/2024 4:24:15 PM (Electronically Signed) Procedure Note Alfredo Cintron MD - 06/13/2024 For Patients: As a result of the Cures Act, medical imagingexams and procedure reports are released immediately into your electronicmedical record. You may view this report before your referring provider.If you have questions, please contact your health care provider. Indication: Lump of left ear Technique: Grayscale and color Doppler ultrasound of the left posterior auricularsoft tissues performed. Comparison: CT 07/20/2019 Findings: No fluid collection or mass. No abnormal vascularity. Impression: Negative sonogram. No suspicious findings. Dictated by Alfredo Cintron MD @ 06/13/2024 4:24:15 PM (Electronically Signed) us Lisandra RICARDO Final Res ult * COLONOSCOPY (11/03/2023 11:54 AM CDT) 11/03/2023 11:5 4 AM CDT Narrative Transcriptions Juan Estrada MD - 11/03/2023 12:44 PM CDT [facility] Patient Name: Bell Foreman Procedure Date: 11/03/2023 Gender: Female Date of : 1950 Admit Type: Ambulatory Procedure: Colonoscopy Proceduralist: Juan Frazier MD - [facility] Referring MD: Juan Frazier MD Indications/Pre-Op Diagnosis: Therapeutic procedure for known colonadenoma Medications: Monitored Anesthesia Care Procedure Description: The patient had risks, benefits and alternatives explained to andgave informed consent. The patient had a stable cardiopulmonary status and judged an adequate candidate for sedation. The endoscope [id number] was passed through the anus andadvanced to the cecum, identified by appendiceal orifice and ileocecal valve.The colonoscopy was performed without difficulty. The patient toleratedthe procedure well. The quality of the bowel preparation was fair. Complications: No immediate complications. Estimated Blood Loss & Specimen: Estimated blood loss: none. Specimen collected: Yes and sent to Laboratory Findings: A large >50mm polyp was found in the cecum extending around the ileocecal valve and into the terminal ileum. The polyp was granular lateral spreading. Biopsies were taken with a cold forceps forhistology. Impressions/Post-Op Diagnosis: - Preparation of the colon was fair. - One large polyp in the cecum extending around the ileocecal valveand into the terminal ileum. Should not be resected endoscopically.Biopsied. Recommendation: - Discharge patient to home. - Resume previous diet. - Continue present medications. - Await pathology results. - Refer to a colo-rectal surgeon. Juan Frazier MD 11/03/2023 12:44:23 PM This report has been signed electronically. Note Initiated On: 11/03/2023 11:54 AM Juan Frazier MD PROCEDURE ORD Fin al Result * (ABNORMAL) XR DXA BONE DENSITY 2 SITES AXIAL (08/07/2022 1:19 PM CDT) Anatomical Region Laterality Modality Spine, HIPS, HIPL, HIPR Computed Radiography Impressions 08/08/2022 10:05 AM CDT Osteopenia. Lowest T-score -1.9. Bone density has decreased significantly since 2018. Risk of fracture is not elevated. RECOMMENDATIONS: The National Osteoporosis Foundation recommends pharmacologic treatment for patients with T-scores of -2.5 or less, patients with prior history of fragility fractures, or patients with 10-year probability of greater than 3% at hips or greater than 20% of suffering major osteoporotic fractures. Recommend continued optimization of calcium and vitamin D intake through dietary means and/or supplementation and regular exercise. Repeat scan recommended in 3-5 years. Narrative 08/08/2022 10:05 AM CDT For Patients: Results are automatically released to [employer] account once available, in compliance with federal regulations. This means that you may see your results before your provider has had a chance to review them. Please allow 2-3 business days for your provider to comment on the results. XR DXA Bone Mineral Density (BMD) EXAM LOCATION: [facility] [address] PATIENT NAME: Bell Foreman DATE OF : 1950 EXAM DATE: 08/07/2022 REQUESTING PROVIDER: Boris Sousa MD GENDER AT : female HEIGHT: 5' 10 (07/23/2022) WEIGHT: 214 lb 7 oz (07/24/2022) MENOPAUSAL STATUS: Postmenopausal RACE/ETHNICITY: White RISK FACTORS: Bariatric Surgery, Diabetes CURRENT MEDICATION FOR BONE LOSS: NONE INDICATION: Exocrine pancreatic insufficiency, Bariatric surgery status COMPARISON DATE(S): 2018 DXA scans are compared to prior studies for a patient only when the two (or more) studies were performed on the same scanner. It is not possible to compare data generated on one scanner to data from another because there are not standards in DXA equipment. This applies even if the two scanners are made by the same parking ramp attendant. PROCEDURE: Dual-energy x-ray absorptiometry performed with routine technique. Reporting is completed in the form of a T-score. The T-score represents the standard deviation from peak bone mass based on young healthy adult. A Z-score is used for diagnosis in premenopausal women, and for men under the age of 50. FINDINGS: RESULT LUMBAR SPINE L1 - L4(2) BMD: 1.349 g/cm2 T-Score: + 1.5 Change from prior in 2018: Decrease 3.5%. RESULTS FEMUR Left femoral neck BMD: 0.859 g/cm2 T-Score: - 1.3 Change from prior in 2018: Decrease 4.9%. Right femoral neck BMD: 0.780 g/cm2 T-Score: - 1.9 Change from prior in 2018: Decrease 8.8%. Left hip BMD: 0.802 g/cm2 T-Score: - 1.6 Change from prior in 2018: Decrease 12.3%. Right hip BMD: 0.850 g/cm2 T-Score: - 1.2 Change from prior in 2018: Decrease 13.4%. WHO criteria: Normal: T-score at or above -1 SD Osteopenia: T-score between -1.1 and -2.4 SD Osteoporosis: T-score at or below -2.5 SD FRAX RISK CALCULATION (USED FOR OSTEOPENIA ONLY): 10-year probability of major osteoporotic fracture: 11.6%. 10-year probability of hip fracture: 2.4%. Boris Sousa MD DEXA Final Re sult * ANTI HCV (06/13/2020 2:29 PM CDT) HEPATITIS C ANTIBODY Non-React chris Non-React chris 06/13/2020 8:09 PM CDT [facility] Comment:Antibodies to HCV no t detected; does not exclude the possibility of exposure to HCV. Blood BLOOD SPECIMEN / Unknown Venipuncture / Unknown 06/13/2020 2:29 PM CDT 06/13/2020 2:31 PM CDT Geena Sheets DO SEND OUTS Final Result [facility] [address] [place] [address], from Last 3 Months or Most Recently Relevant to Health Maintenance Insurance MEDICARE PART A [place] ONLY MEDICARE PART B [place] [address] * Guarantor: [facility] [employer] Account Type Relation to Patient Date of Phone Billing Address Contract 2007 [address] [place] [address] Advance Directives * Full Code (Latest Code Status on File) Date Activated Date Inactivated Comments 11/03/2023 11:48 AM 11/03/2023 3:51 PM Question Answer Comments Code Status Discussion: Unable to Assess Preferences, Provider to review later * Full Code Date Activated Date Inactivated Comments 07/17/2023 1:38 PM 07/18/2023 2:16 PM Question Answer Comments Code Status Discussion: Reviewed Preferences * Full Code Date Activated Date Inactivated Comments 08/18/2019 10:39 AM 08/18/2019 2:24 PM * Full Code Date Activated Date Inactivated Comments 07/23/2019 2:30 AM 08/10/2019 3:10 PM * Full Code Date Activated Date Inactivated Comments 07/05/2019 9:30 AM 07/14/2019 2:34 PM Question Answer Comments Code Status Discussion: Per Existing Order Care Teams Drill Doctor Relationship Specialty Start Date End Date Velma Sosa PA [address] [place] [address] PCP - General Physician Medical Technologist Clinical 03/11/24 Maria T Quintero, RN [address] [place] [address] Nurse Navigator - Oncology Registered Nurse 02/09/24 Jessie Trevizo, RN [address] [place] [address] Nurse Navigator - Oncology Registered Nurse 07/27/24 Shakira Christie MD [address] [place] [address] Surgery - General 07/27/24
== END 2024-08-29 22:32 | disposition home or self-care (01) ==
PROVIDERS: Emergency Provider Family Medicine; PCP Physician Assistant
DX: M25.471 Effusion, right ankle (principal); I48.91 Unspecified atrial fibrillation
CPT/HCPCS: 73600; 99283

== ENCOUNTER 2024-10-30 06:06 | Outpatient (CLI) | payer MEDICARE, OTHER, SELFPAY | END 2024-10-30 06:07 | disposition home or self-care (01) | PROVIDERS: PCP Physician Assistant; Visit Provider Family Medicine | DX: F41.9 Anxiety disorder, unspecified (principal) | CPT/HCPCS: A0425; A0429 ==

== ENCOUNTER 2024-10-30 06:39 | Emergency (ER) | payer MEDICARE, OTHER, SELFPAY ==
--- OUTSIDE RECORDS SUMMARY | 2024-10-03 10:27 | XMS_ITS | Encounter Summary ---
Author Organization [facility] Address [address] [place] [id number] Care Team Providers Care Music Historian Name Role Phone Unavailable Primary Care Provider Unavailabl e Reason for Visit * Appointment Request (Routine) - Closed Specialty Diagnoses / Procedures Referred By Contac t Referred To Contact Radiation Oncology Diagnoses Malignant Neoplasm Of Breast Female Left (HCC) Sarah Reza M.D. [address] [place] [address] Phone: tel: fax: Referral ID Status Reason Start Date Expiration Date Visits Re quested Visits Authorized [id number] Closed 08/09/2024 11/09/2025 1 1 Encounter Details Date Type Department Care Team (Latest Contact Info) Description 10/03/2024 10:27 AM CDT - 10/03/2024 11:44 AM CDT Hospital Encounter Department of Radiation Oncology in [place], [place] [address] [place] [phone] Angeles Lundberg M.D. [address] [place] [phone] 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 (HCC) (Primary Dx) Social History Tobacco Use Types Packs/Day Years Used Date Smoking Tobacco: Never Smokeless Tobacco: Never Comments Unknown Sex and Gender Information Value Date Recorded Sex Assigned at Female 10/12/2024 7:16 AM CDT Legal Sex Female 4:28 AM [employer] Gender Identity Female 10/12/2024 7:16 AM CDT Sexual Orientation Straight 10/12/2024 7: 16 AM CDT documented as of this encounter Last Filed Vital Signs Vital Sign Reading Time Taken Comments Blood Pressure 136/92 10/03/2024 10:49 AM CDT Pulse 70 10/03/2024 10:49 AM CDT Temperature 36.2 C (97.2 F) 10/03/2024 10:49 AM CDT Respiratory Rate - - Oxygen Saturation - - Inhaled Oxygen Concentration - - Weight 95 kg (209 lb 7 oz) 10/03/2024 10:49 AM C DT Height - - Body Mass Index - - documented in this encounter Medications at Time of Discharge acetaminophen (TylenoL) 325 mg tablet Take 650 mg by mouth every 4 (four) hours as needed. 08/31/2024 anastrozole (Arimidex) 1 mg tablet Take 1 mg by mouth daily. 09/30/2024 apixaban (Eliquis) 5 mg tablet Take 5 mg by mouth 2 (two) times a day. 12/28/2023 cyanocobalamin (Vitamin B-12) 1,[address] 1,000 mcg under the tongue. famotidine (Pepcid) 40 mg tablet TAKE ONE TABLET BY MOUTH ONE TIME DAILY* 01/04/2024 fexofenadine (Mariella) 60 mg tablet Take 60 mg by mouth 2 (two) times a day as needed. gabapentin (Neurontin) 300 mg capsule Take 300 mg by mouth. 02/03/2023 gabapentin (Neurontin) 400 mg capsule Take 1,200 mg by mouth. 02/03/2023 hydrOXYzine (Atarax) 10 mg tablet Take 25 mg by mouth. 11/11/2022 Lactobacillus acidophilus 10 billion cell capsule Take by mouth. 12/02/2021 hataye-wigdxyps-lnzy ase (Creon) 24,000-76,000-120,[address] capsule take 2 capsule by oral route with meals and 1 capsule with each snack 2021 metoprolol succinate (Toprol XL) 25 mg 24 hr tablet Take 25 mg by mouth daily. 09/16/2023 multivitamin tablet Take 2 tablets by mouth daily. ondansetron ODT (Zofran-ODT) 4 mg disintegrating tablet DISSOLVE ONE TABLET IN MOUTH EVERY FOUR TO SIX HOURS NEEDED FOR NAUSEA* oxyCODONE (Roxicodone) 5 mg immediate release tablet Take 5 mg by mouth. 12/25/2023 documented as of this encounter Consult Notes * Zita Rivera APRN, C.N.P., D.N.P. - 10/03/2024 11:00 AM CDT SUBJECTIVE REQUESTING PROVIDER Sarah Reza M.D. REASON FOR CONSULT 1. 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 HISTORY OF PRESENT ILLNESS Mrs. Bell Foreman is a 74 y.o. female with invasive lobular carcinoma of the left breast. She underwent left breast lumpectomy and sentinel lymph node biopsy on August 31, 2024. She presents today for an opinion regarding the role of radiation therapy in the management of her disease. Her oncologic history is as follows: Oncology History 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 (HCC) 07/04/2024 Critical Imaging Bilateral screening mammogram demonstrated left breast focal asymmetry with possible architectural distortion, no concerning findings right breast 07/14/2024 Critical Imaging Diagnostic left breast mammogram shows suspicious mass present within the medial LEFT breast with subtle architectural distortion. No suspicious calcifications. Targeted LEFT breast ultrasound at 9 o'clock 11 cm from the nipple there is a taller than wide hypoechoic shadowing nodule which measures 8 x 6 x 9 mm 07/25/2024 Biopsy/Pathology Final Diagnosis A) LEFT BREAST, 9-10:00, 11 CM FROM NIPPLE, ULTRASOUND-GUIDED CORE BIOPSY: 1. Invasive lobular carcinoma a. Sylvia grade: II of III; Sylvia score: 6 of 9 b. Angio-lymphatic invasion: Absent c. Associated LCIS: Present 2. Breast Ancillary Testing: a. Hormone Receptors: Estrogen receptor: Positive (99%, strong staining) Progesterone receptor: Positive (95%, strong staining) b. HER2 by IHC: Negative (1+ by manual morphometry) c. Ki-67: 5% 08/02/2024 Critical Imaging Bilateral breast MRI IMPRESSIONS AND RECOMMENDATIONS: 1. New LEFT breast cancer is identified as a mixed mass and non-mass area of enhancement measuring 3.2 x 1.1 x 1.1 cm. 2. The RIGHT breast is negative. 3. No suspicious lymph nodes. 4. Liver mass requires additional work up to rule out malignancy, a liver MR without and with contrast. 08/05/2024 Critical Imaging MR abdomen liver Impression 1. Incidental liver lesion likely a cavernous hemangioma left lobe segment II. This appears benign. No sign of a metastatic lesion. 08/31/2024 Surgery and Procedures Left breast lumpectomy and sentinel lymph node biopsy with Dr. Shakira Christie Final Diagnosis A) LEFT BREAST, MAGNETIC SEED LOCALIZED LUMPECTOMY: 1. Invasive lobular carcinoma with focal tubule formation, Mckenna grade II of III a. Size: 15 mm b. Core biopsy site is associated with tumor 2. Ductal carcinoma in situ (DCIS), nuclear grade 3, apocrine type 3. Lobular carcinoma in situ (LCIS), classic type 4. Margins: a. Invasive carcinoma is 4 mm from the posterior and medial margins b. DCIS is 3 mm from the posterior margin 5. Breast Ancillary Testing: Performed on prior case ([id number]) a. Hormone Receptors: Estrogen receptor: Positive (99%, strong staining) Progesterone receptor: Positive (95%, strong staining) b. HER2 by IHC: Negative (1+ by manual morphometry) c. Ki67: 5% B) LEFT AXILLARY SENTINEL LYMPH NODE, EXCISIONAL BIOPSY: 1. Single lymph node, negative for malignancy (0/1) SYNOPTIC REPORTING SPECIMEN Procedure: Excision (less than total mastectomy) Specimen Laterality: Left TUMOR Tumor Site: Clock position : 9 o'clock : 10 o'clock Tumor Site: Distance from nipple (Centimeters): 11 cm Histologic Type: Invasive lobular carcinoma Histologic Grade (Mckenna Histologic Score): Glandular (Acinar) / Tubular Differentiation: Score 3 Nuclear Pleomorphism: Score 2 Mitotic Rate: Score 1 Overall Grade: Grade 2 (scores of 6 or 7) Tumor Size: Greatest dimension of largest invasive focus (Millimeters): 15 mm Tumor Focality: Single focus of invasive carcinoma Ductal Carcinoma In Situ (DCIS): Present : Negative for extensive intraductal component (EIC) Architectural Patterns: Apocrine Nuclear Grade: Grade III (high) Necrosis: Not identified Lobular Carcinoma In Situ (LCIS): Present Lymphatic and / or Vascular Invasion: Not identified Treatment Effect in the Breast: No known presurgical therapy MARGINS Margin Status for Invasive Carcinoma: All margins negative for invasive carcinoma Distance from Invasive Carcinoma to Closest Margin: 4 mm Closest Margin(s) to Invasive Carcinoma: Posterior Closest Margin(s) to Invasive Carcinoma: Medial Margin Status for DCIS: All margins negative for DCIS Distance from DCIS to Closest Margin: 3 mm Closest Margin(s) to DCIS: Posterior REGIONAL LYMPH NODES Regional Lymph Node Status: : All regional lymph nodes negative for tumor Total Number of Lymph Nodes Examined (sentinel and non-sentinel): 1 Number of [place] Nodes Examined: 1 pTNM CLASSIFICATION (AJCC 8th Edition) pT Category: pT1c pN Category: pN0 N Suffix: (sn) SPECIAL STUDIES Estrogen Receptor (ER) Status: Positive (greater than 10% of cells demonstrate nuclear positivity) Progesterone Receptor (PgR) Status: Positive HER2 (by immunohistochemistry): Negative (Score 1+) Ki-67 Percentage of Positive Nuclei: 5 % 09/30/[address] Denny Morley, Medical Oncology. Recommended endocrine therapy following radiation treatment. 10/10/2024 - Radiation Therapy Radiation Therapy Treatment Details (Noted on 09/26/2024) Site: Left Breast Technique: No technique specified Goal: Curative Planned Treatment Start Date: 10/10/2024 Malignant Neoplasm Of Colon (HCC) 05/2023 Critical Imaging Colonoscopy showed a polyp near the cecum. 11/03/2023 Critical Imaging colonoscopy with [facility] revealed a colon polyp greater than 50 mm, pathology noted a tubulovillous adenoma consistent with an advanced adenoma, unable to be removed endoscopically 12/23/2023 Surgery and Procedures Status post right hemicolectomy (Dr. Maria T Porter). Pathology demonstrated invasive adenocarcinoma (7 mm), moderately differentiated arising in a tubular adenoma with high-grade dysplasia (2.2 cm polyp size). Adenocarcinoma invades into the submucosa. No lymphovascular invasion, no perineural invasion, low tumor budding. Margins negative, 13 lymph nodes negative (0/13). Stage [id number] or stage 1 INTERVAL HISTORY The patient was seen and examined today with Dr. Lundberg. The patient reports feeling well overall. She reports occasional discomfort in the left breast thatis tolerable. She denies any incisional concerns. She did experience some swelling and was seen by OT and received exercises to work on. She is seeing improvement. She reports moderates fatigue. The patient denies a history of prior radiation therapy, connective tissue disorders, or inflammatory bowel disease. The patient denies any implanted electronic devices. Her ECOG performance status is 0. REVIEW OF SYSTEMS Review of systems was negative except as documented above. PATIENT REPORTED SYMPTOM SCREEN FATIGUE (Scale: 0 = no fatigue; 10 = worst fatigue you can imagine): 3 PAIN (Scale: 0 = no pain; 10 = worst pain you can imagine): 2 OVERALL QUALITY OF LIFE (Scale: 0 = as bad as can be; 10 = as good as can be): 7 PAST MEDICAL HISTORY Medical History[1] PAST SURGICAL HISTORY Surgical History[2] FAMILY HISTORY Family History[3] SOCIAL HISTORY Social History[4] OBJECTIVE BP (!) 136/92 (BP Location: Right arm, Patient Position: Sitting, Cuff Size: Regular) Pulse 70 Temp 36.2 ??C (Temporal) Wt 95 kg PHYSICAL EXAM General: Patient is alert and oriented in no apparent distress. Lymph: No palpable cervical, supraclavicular, infraclavicular, or axillary adenopathy. Lungs: Clear to auscultation bilaterally. Heart: Regular rate and rhythm. Normal S1 and S2. ASSESSMENT / PLAN #1 Stage IA (pT1c, pN0(sn), cM0, G2, ER/CA+, HER2-) invasive lobular carcinoma of the left breast s/p left breast lumpectomy and sentinel lymph node biopsy August 31, 2024 #2 History of Stage I (pT1 pN0 cM0) invasive adenocarcinoma of the colon s/p right hemicolectomy December 2023 It was a pleasure to meet with Ramya today. I had a discussion with her regarding her breast cancerdiagnosis, including information regarding her staging, grade, and hormone receptors. We had a detailed discussion regarding the risks, benefits, and alternatives of radiotherapy in this setting. We d iscussed the recommendation for radiation treatment to the left breast in 5 or 15 fractions. We also discussed the possibility of observation. I discussed the logistics, as well as, the acute and chronic side effects of radiotherapy. The acute side effects may include, but are not limited to, fatigue, radiation dermatitis, and breast swelling and discomfort. Long-term side effects can be rare and may include, but are not limited to, skin changes and texture changes of the breast, possible breast asymmetry, pulmonary scarring (typically of no clinical significance), radiation pneumonitis, increased risk of rib fracture with significanttrauma, lymphedema, small increased risk of coronary artery disease (if left breast/chest wall is irradiated), and a very small risk of secondary malignancy. The patient was provided with a written urias mmary of recommendations. Her questions were answered to her verbalized satisfaction. She was evaluated by Dr. Denny Morley, Medical Oncology. He recommended endocrine therapy followingradiation. The patient plans to pursue this. After discussion, the patient verbally stated that she would like to proceed with treatment. She will undergo CT simulation today. We anticipate starting radiation therapy in the next 1-2 weeks. I provided a prescription for mometasone and discussed its application process. She should apply this twice daily to the treatment area while undergoing radiation treatment and continue for 2 weeks following radiation treatment in addition to a non-scented lotion applied 2-3 times daily to the treatmentfield. Patient seen in collaboration with Dr. Lundberg, please review her attestation for additional information. The patient was provided with our contact information. She was asked to contact us withquestions or concerns. She verbally expressed her understanding of the plan. EDUCATION Ready to learn, no apparent learning barriers were identified; learning preferences include listening. Explained diagnosis and treatment plan; patient expressed understanding of the content. CONSENT Discussed the risks, benefits, alternatives, and the necessity of other members of the healthcare team participating in the procedure. All questions answered. PRIMARY PROVIDER DAVION Willis I personally spent 55 minutes in care of the patient today. Time includes both non face to face andface to face patient care. Signed by: Zita Rivera APRN, C.N.P., D.N.P. 10/03/2024 11:37 AM CDT [facility] [address] [place] [address] [1] Past Medical History: Diagnosis Date Arthritis Asthma NOS 08/11/2006 Atrial Fibrillation Unspecified (HCC) Bipolar Disorder (HCC) Diabetes Mellitus Type 2 (HCC) Hypertension Essential Primary Malignant Neoplasm Of Colon (HCC) 02/05/2024 Meningioma Brain (HCC) Nodule Thyroid Pericarditis (HCC) [2] Past Surgical History: Procedure Laterality Date CARPAL TUNNEL RELEASE CHOLECYSTECTOMY COLON SURGERY GASTRIC BYPASS HYSTERECTOMY LUMPECTOMY BREAST WITH SENTINEL NODE BIOPSY 08/31/2024 OTHER CONVERTED SHX (SEE COMMENT) N/A 08/12/2006 >Flexible fiberoptic bronchoscopy with brushings right lung under fluoroscopic guidance. PERICARDIAL WINDOW [3] Family History Problem Relation Name Age of Onset Prostate cancer Brother Breast cancer Maternal Grandmother Cervical cancer Daughter [4] Social History Socioeconomic History Marital status: Tobacco Use Smoking status: Never Social Drivers of Health Food Insecurity: No Food Insecurity (06/13/2024) Received from [facility] Food Insecurity Do you worry your food will run out before you are able to buy more?: 1 Transportation Needs: No Transportation Needs (06/13/2024) Received from [facility] Transportation Needs Does lack of transportation keep you from medical appointments?: 1 Does lack of transportation keep you from work, meetings or getting things that you need?: 1 Intimate Partner Violence: Low Risk (01/15/2024) Received from [facility] Safety Do you feel physically and emotionally safe where you currently live?: Yes Within the past 12 months, have you been hit, slapped, kicked or otherwise physically hurt by someone?: No Within the past 12 months, have you been humiliated or emotionally abused in other ways by your partner or ex-partner?: No Housing Stability: Low Risk (06/13/2024) Received from [facility] Housing Stability What is your housing situation today?: 1 Cosigned by Angeles Lundberg M.D. at 10/03/2024 1:18 PM CDT Associated attestation - Angeles Lundberg M.D. - 10/03/2024 1:18 PM CDT RADIATION ONCOLOGY CONSULT I saw and evaluated the patient and participated in the mast portions of the service. I reviewed thedocumentation of Ms. Zita Rivera APRN and agree with the findings and plan. Please see Ms. Rivera's detailed note for the patient's initial presentation and work-up. Briefly, Mrs. 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 I have reviewed her imaging, operative and pathology reports. In brief, she was found on screening mammogram to have an abnormality in her left breast. This prompted additional imaging and a biopsy showing invasive lobular carcinoma. After additional imaging she then had left breast lumpectomy and SLNBx on August 31, 2024. She was found to have a 15mm invasive lobular carcinoma, G2, ER/CA+, HER2-, Ki67=5%. Margins were negative by 4mm on posterior/medial margins and 3mm on DCIS posteriorly. A single left axillary SLN was negative. LCIS was noted and no LVSI was noted. On exam, she appears well. No cervical, supra/infraclavicular, or axillary adenopathy. Her breasts are symmetric with no masses, lumps, or worrisome skin changes. Her breasts are ptotic and lay to her sides when she is supine. We discussed the findings above and below in this note with the patient. We discussed her JORDANA mutation which does not put her at greater risk from radiation since she is heterozygote. We discussed her treatment alternatives including ultra- vs conventionally hypofractionated whole breast radiation therapy with 5 or 15 fractions. I see no indications for a boost. Observation is also an option for her as well if she does plan on taking hormonal therapy. We discussed that radiation does not changeher overall survival, but can reduce her risk of local recurrence. We discussed the rationale, risks, side effects and goals of radiation therapy. We discussed the rationale, risks, side effects and adjuvant goals of radiation therapy. We discussed the acute as wellas custodial risks, including, but not limited to fatigue, skin erythema/desquamation, sore throat,fibrosis of the breast/chest wall, lymphedema, small risks of bone fracture, radiation pneumonitis,cardiac disease, brachial plexopathy and secondary malignancies. We discussed possibly utilizing a prone breast position given the ptosis of her breasts; she states that she tolerated the MRIs well and believes that she could lay in this position for her treatments. She understood and her questionswere answered. She wished to proceed with treatment. We tentatively plan on delivering 2600 cGy in 5 fractions starting next Thursday, October 10, 2024. We will send in a prescription for Mometasone cream. She knows to use Vanicream or Eucerin. She will call me if she changes her mind on proceeding with radiation. My thanks to Pratik Mcbride Leach and DAVION Willis for the opportunity to participate in this patient's care. EDUCATION Ready to learn, no apparent learning barriers were identified; learning preferences include listening. Explained diagnosis and treatment plan; patient expressed understanding of the content. CONSENT Discussed the risks, benefits, alternatives, and the necessity of other members of the healthcare team participating in the procedure. All questions answered and consent given. DIAGNOSIS #1 Stage IA (pT1c, pN0(sn), cM0, G2, ER/CA+, HER2-) invasive lobular carcinoma of the left breast s/p left breast lumpectomy and sentinel lymph node biopsy August 31, 2024 Signed by: Angeles Lundberg M.D. 10/02/2024 5:53 PM CDT documented in this encounter Plan of Treatment Not on file documented as of this encounter Visit Diagnoses Diagnosis 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 (HCC)- Primary documented in this encounter
--- OUTSIDE RECORDS SUMMARY | 2024-10-03 11:45 | XMS_ITS | Encounter Summary ---
Author Organization 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 [address] [place] [address] Phone: tel: fax: [facility] Region Referral ID Status Reason Start Date Expiration Date Visits Re quested Visits Authorized [id number] Closed 09/26/2024 12/27/2025 1 1 Encounter Details Date Type Department Care Team (Latest Contact Info) Description 10/03/2024 11:45 AM CDT - 10/03/2024 1:20 PM CDT Hospital Encounter Department of Radiation Oncology in [place], [place] [address] [place] [phone] Angeles Lundberg M.D. 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 12/02/2021 wvtdyr-dwhhfvca-yif lase (Creon) 24,000-76,000-120,[address] capsule take 2 capsule by oral route with meals and 1 capsule with each snack 2021 metoprolol succinate (Toprol XL) 25 mg 24 hr tablet Take 25 mg by mouth daily. 09/16/2023 mometasone (Elocon) 0.1 % cream Apply 1 Application topically as directed. Apply to left breast twice daily starting on the 1st day of radiation treatment. Continue for 10 days following the completion of radiation treatment. 45 g 1 10/03/2024 multivitamin tablet Take 2 tablets by mouth daily. ondansetron ODT (Zofran-ODT) 4 mg disintegrating tablet DISSOLVE ONE TABLET IN MOUTH EVERY FOUR TO SIX HOURS NEEDED FOR NAUSEA* oxyCODONE (Roxicodone) 5 mg immediate release tablet Take 5 mg by mouth. 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 Authorized by: Angeles Lundberg M.D. Simulation was performed under physician supervision based on physician order in preparation for radiation therapy. Physician was immediately available to provide assistance and direction throughout the procedure. Written consent for treatment was completed or confirmed. The patient was appropriately identified and placed in the treatment position using the necessary immobilization to ensure a reproducible treatment position. Reference fraire were placed to facilitate marking of isocenter. Area scanned:Chest Contrast used for the simulation procedure: None Patient position:head first prone Custom immobilization: Breast board Motion management: None Bolus: No CT guidance: Following positioning of the patient, a series of slices was obtained to be utilized in treatment planning. CT images were transferred to the [employer] treatment planning system, after a reference isocenter was determined and marked. Segmentation and treatment planning will take place prior to treatment delivery. Patient set up and imaging was appropriate and completed without incident. Supervisor Poultry Hatchery use:No Cosigned by Angeles Lundberg M.D. at 10/03/2024 1:20 PM CDT Associated attestation - Angeles Lundberg M.D. - 10/03/2024 1:20 PM CDT I was present during all critical and mast portions of the procedure(s) and/or immediately availableto furnish services the entire duration. See note for details. 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 10/03/2024 1:20 PM Initial Rad Onc Treatment Planning CT Simulation Performed by: Angeles Lundberg M.D. Authorized by: Angeles Lundberg M.D. Simulation was performed under physician supervision based on physician order in preparation for radiation therapy. Physician was immediately available to provide assistance and direction throughout the procedure. Written consent for treatment was completed or confirmed. The patient was appropriately identified and placed in the treatment position using the necessary immobilization to ensure a reproducible treatment position. Reference fraire were placed to facilitate marking of isocenter. Area scanned:Chest Contrast used for the simulation procedure: None Patient position:head first prone Custom immobilization: Breast board Motion management: None Bolus: No CT guidance: Following positioning of the patient, a series of slices was obtained to be utilized in treatment planning. CT images were transferred to the [employer] treatment planning system, after a reference isocenter was determined and marked. Segmentation and treatment planning will take place prior to treatment delivery. Patient set up and imaging was appropriate and completed without incident. Supervisor Poultry Hatchery use:No us Angeles Lundberg M.D. 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
--- OUTSIDE RECORDS SUMMARY | 2024-10-10 08:30 | XMS_ITS | Encounter Summary ---
Author Organization [facility] Address [address] [place] [address] Care Team Providers Care Mixing Tumbler Operator Name Role Phone Unavailable Primary Care Provider Unavailabl e Encounter Details Date Type Department Care Team (Late st Contact Info) Description 10/10/2024 8:30 AM CDT Hospital Encounter Department of Radiation Oncology in [place], [place] [address] [place] [address] Donaldo Cheema M.D. [address] [place] [address] Social History Tobacco Use Types Packs/Day Years Used Date Smoking Tobacco: Never Smokeless Tobacco: Never Alcohol Use Standard Drinks/Week Comments Not Currently 0 (1 standard drink = 0.6 oz pur e alcohol) social drinker Hunger Vital Sign Answer Date Recorded Within the past 12 months, y ou worried that your food would run out before you got the money to buy more. Never true 10/10/19 25 Within the past 12 months, t he food you bought just didn't last and you didn't have money to get more. Never true 10/09/2024 PRAPARE - Transportation Answer Date Re corded In the past 12 months, has l ack of transportation kept you from medical appointments or from getting medications? No 05/2024 In the past 12 months, has l ack of transportation kept you from meetings, work, or from getting things needed for daily living? No 10/09/2024 [facility] Utilities Answer Date Recorded In the past 12 months has e electric, gas, oil, or water company threatened to shut off services in your home? No 10/09/2024 Housing Stability Answer Date Recorded What is your living situation today? 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
--- OUTSIDE RECORDS SUMMARY | 2024-10-10 10:00 | XMS_ITS | Encounter Summary ---
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 [address] [place] [address] Phone: tel: fax: [facility] Region Referral ID Status Reason Start Date Expiration Date Visits Re quested Visits Authorized [id number] Closed 10/10/2024 01/10/2026 1 1 Encounter Details Date Type Department Care Team (Latest Contact Info) Description 10/10/2024 10:00 AM CDT - 10/11/2024 10:08 AM CDT Hospital Encounter Department of Radiation Oncology in [place], [place] [address] [place] [phone] Donaldo Cheema M.D. 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 Never true 10/10/19 Within the past 12 months, t he [...] things needed for daily living? No 10/09/2024 [facility] Utilities Answer Date Recorded In the past 12 months has e electric, gas, oil, or water [employer] threatened to shut off services in your home? No 10/09/2024 Housing Stability Answer Date Recorded What is your living situation today? 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 12/02/2021 quhizr-crxjjbcg-pzi lase (Creon) 24,000-76,000-120,[address] [...] as of this encounter Procedure Notes * Melody Harrison, RTT - 10/10/2024 10:00 AM CDT Procedures Simulation was performed under physician supervision based on physician order. Physician was immediately available to provide assistance and direction throughout the procedure. The patient was appropriately identified and placed in the treatment position using the necessary immobilization. Area scanned:Neck and Chest Contrast used for the simulation procedure: None Motion management: None Reason for Re-Sim:Patient setup Immobilization: CT guidance: Following positioning of the patient, a series of slices was obtained to be utilized in treatment planning. CT images were transferred to the [employer] treatment planning system. Verification treatment planning will take place prior to treatment delivery as directed by physician. Patient set up and imaging was appropriate and completed without incident. Land Surveyor use:No Cosigned by Dundas, Donaldo, M.D. at 10/11/2024 1:17 PM CDT Associated attestation - Donaldo Cheema M.D. - 10/11/2024 1:17 PM CDT Agree with documentation as below. I was personally available during the simulation. 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 Please refer to the patient s medical record on this date for clinical details. us Donaldo Cheema M.D. 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
--- OUTSIDE RECORDS SUMMARY | 2024-10-11 10:09 | XMS_ITS | Encounter Summary ---
Author Organization [facility] Address [address] [place] [address] Care Team Providers Care Real Estate Instructor Name Role Phone Unavailable Primary Care Provider Unavailabl e Encounter Details Date Type Department Care Team (Late st Contact Info) Description 10/11/2024 10:09 AM CDT Hospital Encounter Department of Radiation Oncology in [place], [place] [address] [place] [address] Angeles Lundberg M.D. [address] [place] [phone] Social History Tobacco Use Types Packs/Day Years [...] things needed for daily living? No 10/09/2024 [facility] Utilities Answer Date Recorded In the past 12 months has e electric, gas, oil, or water company threatened to shut off services in your home? No 10/09/2024 Housing Stability Answer Date Recorded What is your living situation today? I have a [facility] place to live 10/09/2024 Comments Unknown Sex and Gender Information Value Date Recorded Sex Assigned at Female 10/12/2024 7:16 AM CDT Legal Sex Female 4:28 AM WELCOME HOSTESS Gender Identity Female 10/12/2024 7:16 AM CDT Sexual Orientation Straight 10/12/2024 7: 16 AM CDT documented as of this encounter Plan of Treatment Not on file documented as of this encounter Visit Diagnoses Not on filedocumented in this encounter
--- OUTSIDE RECORDS SUMMARY | 2024-10-12 11:30 | XMS_ITS | Encounter Summary ---
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 [address] [place] [address] Phone: tel: fax: [facility] Region Referral ID Status Reason Start Date Expiration Date V isits Requested Visits Authorized [id number] Authorized 09/26/2024 12/27/2025 10 10 Encounter Details Date Type Department Care Team (Latest Contact Info) Description 10/12/2024 11:30 AM CDT - 10/12/2024 11:44 AM CDT Hospital Encounter Department of Radiation Oncology in [place], [place] [address] [place] [address] Angeles Lundberg M.D. [address] [place] [address] Malignant Neoplasm Of Breast Upper Inner Quadrant [...] things needed for daily living? No 10/09/2024 [facility] Utilities Answer Date Recorded In the past 12 months has e electric, gas, oil, or water company threatened to shut off services in your home? No 10/09/2024 Housing Stability Answer Date Recorded What is your living situation today? 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 12/02/2021 fginim-wmjwnazd-bqc lase (Creon) 24,000-76,000-120,[address] [...] mouth. 12/25/2023 documented as of this encounter Progress Notes * Angeles Lundberg M.D. - 10/12/2024 11:30 AM CDT ATTESTATION FOR MANAGEMENT VISIT I saw and evaluated the patient and participated in the mast portions of the service as noted below. I reviewed the documentation of Ms.Alexis Margie RN and agree with the findings and plan. The patient appears well on exam. We will continue with radiation as planned and we anticipate that she will complete treatments this week. We anticipate that Mrs. Bell Foreman will complete radiation treatment as planned without interruptions. The course of treatment was tolerated well. The patient experienced no toxicities during radiation treatment. She has ongoing fatigue that is not new for her. Follow-up will be with Dr. Morley and we will see her again as needed. Angeles Lundberg M.D., 10/12/2024 SUBJECTIVE REASON FOR VISIT Evaluation for side effects while receiving radiation treatment for 1. 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 HISTORY OF PRESENT ILLNESS Mrs. Bell Foreman is a 74 y.o. female with invasive lobular carcinoma of the left breast. She underwent left breast lumpectomy and sentinel lymph node biopsy on August 31, 2024. She is currently undergoing radiation therapy to the left breast. Treatment Course: 1xBreast Plan ID Fractions Dose / Fraction (cGy) Dose Treated (cGy) Dose Planned (cGy) First Treatment Last Treatment Elapsed Days [id number] 10/10/2024 10/11/2024 1 Course Summary 10/10/2024 10/11/2024 1 The patient was seen and examined today with Dr. Lundberg. The patient reports feeling well overall. She denies any skin concerns or changes to her range of motion. She does note some discomfort in her right axilla that has been present since surgery CONCURRENT THERAPY Anastrozole 1 mg daily PATIENT REPORTED SYMPTOM SCREEN FATIGUE (Scale: 0 = no fatigue; 10 = worst fatigue you can imagine): not reported PAIN (Scale: 0 = no pain; 10 = worst pain you can imagine): not reported OVERALL QUALITY OF LIFE (Scale: 0 = as bad as can be; 10 = as good as can be): not reported OBJECTIVE Temp 36.4 ??C (Temporal) Wt 94.1 kg PHYSICAL EXAM General: Alert and oriented in no apparent distress. Skin: no erythema or desquamation noted ASSESSMENT / PLAN #1 Stage IA (pT1c, pN0(sn), cM0, G2, ER/NE+, HER2-) invasive lobular carcinoma of the left breast s/p left breast lumpectomy and sentinel lymph node biopsy August 31, 2024 #2 History of Stage I (pT1 pN0 cM0) invasive adenocarcinoma of the colon s/p right hemicolectomy December 2023 #3 Radiation to the Left Breast initiated on October 10, 2024; anticipated date of completion October 14, 2024 The patient is tolerating radiation treatment well overall. The patient will use mometasone for up to two weeks post radiation therapy. She will contract us if her skin starts to peel or blister. was in for any questions or concerns. She will contact us with any questions or concerns. Wewill continue with radiation treatment as planned. Toxicities reviewed with Dr. Lundberg. FOLLOW-UP The patient will continue to follow with her Medical Oncologist, Dr. Morley. Her next appointment isin November of this year. Signed by: Lynne Hanson R.N. 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
--- OUTSIDE RECORDS SUMMARY | 2024-10-12 11:45 | XMS_ITS | Encounter Summary ---
Author Organization [facility] Address [address] [place] [address] Care Team Providers Care Cognos Bi Developer Name Role Phone Unavailable Primary Care Provider Unavailabl e Encounter Details Date Type Department Care Team (Late st Contact Info) Description 10/12/2024 11:45 AM CDT Hospital Encounter Department of Radiation Oncology in [place], [place] [address] [place] [address] Angeles Lundberg M.D. [address] [place] [phone] Social History Tobacco Use Types Packs/Day Years [...] things needed for daily living? No 10/09/2024 [facility] Utilities Answer Date Recorded In the past 12 months has e electric, gas, oil, or water company threatened to shut off services in your home? No 10/09/2024 Housing Stability Answer Date Recorded What is your living situation today? I have a [facility] place to live 10/09/2024 Comments Unknown Sex and Gender Information Value Date Recorded Sex Assigned at Female 10/12/2024 7:16 AM CDT Legal Sex Female 4:28 AM TRANSMISSION INSPECTOR Gender Identity Female 10/12/2024 7:16 AM CDT Sexual Orientation Straight 10/12/2024 7: 16 AM CDT documented as of this encounter Plan of Treatment Not on file documented as of this encounter Visit Diagnoses Not on filedocumented in this encounter
--- OUTSIDE RECORDS SUMMARY | 2024-10-13 08:43 | XMS_ITS | Encounter Summary ---
Author Organization [facility] Address [address] [place] [address] Care Team Providers Care Cook Short Order Name Role Phone Unavailable Primary Care Provider Unavailabl e Encounter Details Date Type Department Care Team (Late st Contact Info) Description 10/13/2024 8:43 AM CDT Hospital Encounter Department of Radiation Oncology in [place], [place] [address] [place] [address] Angeles Lundberg M.D. [address] [place] [phone] Social History Tobacco Use Types Packs/Day Years [...] things needed for daily living? No 10/09/[address] [facility] Utilities Answer Date Recorded In the past 12 months has e electric, gas, oil, or water company threatened to shut off services in your home? No 10/09/2024 Housing Stability Answer Date Recorded What is your living situation today? I have a [facility] place to live 10/09/2024 Comments Unknown Sex and Gender Information Value Date Recorded Sex Assigned at Female 10/12/2024 7:16 AM CDT Legal Sex Female 4:28 AM RESEARCH GROUP DIRECTOR Gender Identity Female 10/12/2024 7:16 AM CDT Sexual Orientation Straight 10/12/2024 7: 16 AM CDT documented as of this encounter Plan of Treatment Not on file documented as of this encounter Visit Diagnoses Not on filedocumented in this encounter
--- OUTSIDE RECORDS SUMMARY | 2024-10-14 12:21 | XMS_ITS | Encounter Summary ---
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 [address] [place] [phone] Social History Tobacco Use Types Packs/Day Years [...] things needed for daily living? No 10/09/2024 [facility] Utilities Answer Date Recorded In the past 12 months has e electric, gas, oil, or water company threatened to shut off services in your home? No 10/09/2024 Housing Stability Answer Date Recorded What is your living situation today? 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
--- OUTSIDE RECORDS SUMMARY | 2024-10-30 06:41 | XMS_ITS | Encounter Summary ---
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 [address] [place] [phone] Phone: tel: fax: [facility] Region Referral ID Status Reason Start Date Expiration Date Visits Re quested Visits Authorized Scheduling Instructions Please do not schedule if patient has 10 fractions or less, unless requested by care team. 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 [address] [place] [address] Phone: tel: fax: [facility] Referral ID Status Reason Start Date Expiration Date V isits Requested Visits Authorized [id number] Authorized 09/26/2024 12/27/2025 1 1 Encounter Details Date Type Department Care Team (Late st Contact Info) Description 09/26/2024 Orders Only Department of Radiation Oncology in [place], [place] [address] [place] [phone] Zita Rivera APRN, C.N.P., D.N.P. 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 No 10/09/2024 [facility] Utilities Answer Date Recorded In the past 12 months has th e electric, gas, oil, or water company threatened to shut off services in your home? No 10/09/2024 Housing Stability Answer Date Recorded What is your living situation today? 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) Ordered: 09/26/2024 Management Visit Radiation Oncology Routine 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 Security Escort use:No Angeles Lundberg M.D. 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
--- OUTSIDE RECORDS SUMMARY | 2024-10-30 06:42 | XMS_ITS | Clinical Summary ---
Author Organization [facility] Address [address] [place] [id number] Care Team Providers Care Ic Engineer Name Role Phone Unavailable Primary Care Provider Unavailabl e Source Comments Patient records contain information from all sites at [facility]. For routine questions regarding patient records, call [phone] during business hours, M-F 8:00 AM - 5:00 PM Central Time. Record requests for emergency care only can be directed to [phone] at any time.[facility] Allergies Active Allergy Reactions Criticality Noted Date Comments Adhesive Tape-Silicones Rash 10/30/2023 Paper tape, silk tape, please try KIND tape Aspirin Hives (Reselect Reaction),Other (see comments),Rash High 12/23/2004 Tolerated Aspirin on 06/12/2018 without difficulty. No hives. [place] Hives (Reselect Reaction),Other (see comments),Rash High 12/23/2004 Naproxen Hives (Reselect Reaction) High 12/23/2004 Ok to take ibuprofen Medications * This document contains information received from the source organization and may not represent a complete record from that organization. acetaminophen (TylenoL) 325 mg tablet Take 650 mg by mouth every 4 (four) hours as needed. 09/01/19 25 Active anastrozole (Arimidex) 1 mg tablet Take 1 mg by mouth daily. 10/01/19 25 Active apixaban (Eliquis) 5 mg tablet Take 5 mg by mouth 2 (two) times a day. 12/28/19 24 Active cyanocobalamin (Vitamin B-12) 1,[address] 1,000 mcg under the tongue. Active famotidine (Pepcid) 40 mg tablet TAKE ONE TABLET BY MOUTH ONE TIME DAILY* 01/04/20 24 Active fexofenadine (Mariella) 60 mg tablet Take 60 mg by mouth 2 (two) times a day as needed. Active gabapentin (Neurontin) 300 mg capsule Take 300 mg by mouth. 02/04/20 Active gabapentin (Neurontin) 400 mg capsule Take 1,200 mg by mouth. 02/04/20 Active hydrOXYzine (Atarax) 10 mg tablet Take 25 mg by mouth. 11/12/19 23 Active Lactobacillus acidophilus 10 billion cell capsule Take by mouth. 12/03/19 Active ndetcx-hlfbakoe-tf ylase (Creon) 24,000-76,000-120, [address] capsule take 2 capsule by oral route with meals and 1 capsule with each snack 09/06/19 Active metoprolol succinate (Toprol XL) 25 mg 24 hr tablet Take 25 mg by mouth daily. 09/16/19 Active multivitamin tablet Take 2 tablets by mouth daily. Active ondansetron ODT (Zofran-ODT) 4 mg disintegrating tablet DISSOLVE ONE TABLET IN MOUTH EVERY FOUR TO SIX HOURS NEEDED FOR NAUSEA* Active oxyCODONE (Roxicodone) 5 mg immediate release tablet Take 5 mg by mouth. 12/25/19 Active mometasone (Elocon) 0.1 % cream Apply 1 Application topically as directed. Apply to left breast twice daily starting on the 1st day of radiation treatment. Continue for 10 days following the completion of radiation treatment. 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 Date Type Department Care Team Description 10/14/2024 12:21 PM CDT Hospital Encounter Department of Radiation Oncology in [place], [place] [address] [place] [phone] Angeles Lundberg M.D. 10/14/2024 Documentation Department of Radiation Oncology in [address] [phone] Angeles Lundberg M.D. 10/13/2024 8:43 AM CDT Hospital Encounter Department of Radiation Oncology in [address] [phone] Angeles Lundberg M.D. 10/12/2024 11:45 AM CDT Hospital Encounter Department of Radiation Oncology in [address] [phone] Angeles Lundberg M.D. 10/12/2024 11:30 AM CDT - 10/12/2024 11:44 AM CDT Hospital Encounter Department of Radiation Oncology in [address] [phone] Angeles Lundberg M.D. 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 10/10/2024 10:00 AM CDT - 10/11/2024 10:08 AM CDT Hospital Encounter Department of Radiation Oncology in [address] [phone] Donaldo Cheema M.D. 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 10/03/2024 11:45 AM CDT - 10/03/2024 1:20 PM CDT Hospital Encounter Department of Radiation Oncology in [address] [phone] Angeles Lundberg M.D. 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 No 10/09/2024 [facility] Utilities Answer Date Recorded In the past 12 months has th e electric, gas, oil, or water company threatened to shut off services in your home? No 10/09/2024 Housing Stability Answer Date Recorded What is your living situation today? I have a [facility] place to live 10/09/2024 Comments Unknown Sex and Gender Information Value Date Recorded Sex Assigned at Female 10/12/2024 7:16 AM CDT Legal Sex Female 4:28 AM [employer] Gender Identity Female 10/12/2024 7:16 AM CDT Sexual Orientation Straight 10/12/2024 7: 16 AM CDT Last Filed Vital Signs Vital Sign Reading Time Taken Comments Blood Pressure 136/92 10/03/2024 10:49 AM CDT Pulse 70 10/03/2024 10:49 AM CDT Temperature 36.4 C (97.6 F) 10/12/2024 11:50 AM CDT Respiratory Rate - - Oxygen Saturation - - Inhaled Oxygen Concentration - - Weight 94.1 kg (207 lb 7.3 oz) 10/12/2024 11:50 AM CDT Height - - Body Mass Index - - Plan of Treatment Health Maintenance Due Date Last Done Comments CT Colonography 1950 Cologuard 1950 Hepatitis C Screening 1950 COVID-19 Vaccine ( season) 2023 01/10/2022, 06/01/2020, 05/11/2020 Depression Screening (Annual PHQ-2) 03/09/2024 Fall Risk Screen (Annual) 03/09/2024 Influenza Vaccine (#1) 2024 , 12/02/2022, 01/10/2022, Additional history exists Mammogram 08/31/2025 08/31/2024, 08/08, 07/25/2024, Additional history exists DTaP,Tdap,and Td Vaccines (2 - Td or Tdap) 04/15/2026 04/15/2016 Fasting Glucose for Diabetes Screening 01/15/2027 01/16/2024, 01/15/2024, 01/13/2024, Additional history exists Colonoscopy 11/02/2028 11/03/2023 Colorectal Cancer Surveillance 11/02/2028 Pneumococcal vaccine (50+ years) Completed 01/21/2021, 02/14/2015, 12/21/2013, Additional history exists Bone Density Scan (Osteoporosis Screen) Discontinued 08/07/2022 Zoster Vaccines Completed 09/23/2022, 01/08, 04/15/2016 RSV vaccine - (32-36 weeks) or 60+ years Completed 12/02/2022 HPV Vaccines Aged Out No longer eligi ble based on patient's age to complete this topic IPV Vaccines Aged Out No longer eligi ble based on patient's age to complete this topic Procedures Procedure Name Priority Date/Time Associated Diagnosis Comments ARIA COURSE COMPLETE TREATMENT INFORMATION Routine 10/14/2024 12:46 PM CDT ARIA DAILY TREATMENT INFORMATION Routine 10/14/2024 12:46 PM CDT ARIA DAILY TREATMENT INFORMATION Routine 10/13/2024 10:17 AM CDT ARIA DAILY TREATMENT INFORMATION Routine 10/12/2024 12:52 PM CDT ARIA DAILY TREATMENT INFORMATION Routine 10/11/2024 10:39 AM CDT ARIA DAILY TREATMENT INFORMATION Routine 10/10/2024 11:20 AM CDT VERIFICATION/RE-SIM Routine 10/10/2024 1 0:03 AM CDT 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 (HCC) INITIAL RAD ONC TREATMENT PLANNING CT SIMULATION Routine 10/03/2024 12:00 PM CDT 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 (HCC) OUTSIDE US BREAST Routine 08/31/2024 7:3 5 AM CDT OUTSIDE MG MAMMOGRAM Routine 08/31/2024 12:05 AM CDT OUTSIDE MG MAMMOGRAM Routine 08/31/2024 12:00 AM CDT OUTSIDE MR BREAST Routine 08/02/2024 5:3 0 AM CDT from Last 3 Months Results * Aria Course Complete Treatment Information (10/14/2024 12:46 PM CDT) Course ID 1xBreast [place] ARIA Course Start Date 07/25/202 5 08:20 CDT MAGALLANES ARIA Course End Date 5 12:31 CDT MAGALLANES ARIA First Treatment Date 5 11:18 CDT MAGALLANES ARIA Last Treatment Date 5 12:46 CDT MAGALLANES ARIA Treatment Elapsed Days 4 MAGALLANES ARIA Reference Point [id number] MAGALLANES ARIA Dosage Given to Date cGy 2600 MAGALLANES ARIA Plan ID [id number] MAGALLANES ARIA Fractions Treated to Date 5 MAGALLANES ARIA Planned Total Fractions 5 MAGALLANES ARIA Prescribed Dose Per Fraction 520 MAGALLANES ARIA Prescription Dose in cGy 2600 MAGALLANES ARIA Plan Primary Reference Point [id number] MAGALLANES ARIA 10/14/2024 12:4 6 PM CDT us Provider Not In System RADIATION ONCOLOGY ORDERA BLES Final Result SONA FERRER na * Aria Daily Treatment Information (10/14/2024 12:46 PM CDT) Only the most recent of5 resultswithin the time period is included. Course ID 1xBreast MAGALLANES ARIA Course Start Date 5 08:20 CDT MAGALLANES ARIA First Treatment Date 5 11:18 CDT MAGALLANES ARIA Last Treatment Date 5 12:46 CDT MAGALLANES ARIA Treatment Elapsed Days 4 MAGALLANES ARIA Reference Point [id number] MAGALLANES ARIA Dosage Given to Date cGy 2600 MAGALLANES ARIA Session Dosage Given 520 MAGALLANES ARIA Plan ID [id number] MAGALLANES ARIA Fractions Treated to Date 5 MAGALLANES ARIA Planned Total Fractions 5 MAGALLANES ARIA Prescribed Dose Per Fraction 520 MAGALLANES ARIA Prescription Dose in cGy 2600 MAGALLANES ARIA Plan Primary Reference Point [id number] MAGALLANES ARIA 10/14/2024 12:4 6 PM CDT us Provider Not In System RADIATION ONCOLOGY ORDERA BLES Final Result SONA FERRER na * Verification/Re-Sim (10/10/2024 10:03 AM CDT) Narrative MAGALLANES ARIA - 10/10/2024 10:03 AM CDT This exam does not require a oncologist review or interpretation. Please refer to the patient s medical record on this date for clinical details. Donaldo Cheema M.D. RADIATION ONCOLOGY ORDER DAVINA Final Result Performing Organization Address [facility] de Phone Number SONA diaz * Initial Rad Onc Treatment Planning CT Simulation (10/03/2024 12:00 PM CDT) Narrative [facility] - 10/03/2024 12:00 PM CDT Angeles Lundberg [...] imaging was appropriate and completed without incident. Ambulance Assistant use:No Angeles Lundberg M.D. RADIATION ONCOLOGY ORDERA BLES Final Result Performing Organization Address [facility] de Phone Number SONA diaz * Outside US Breast (08/31/2024 7:35 AM CDT) 08/31/2024 2:17 PM CDT Addenda Addendum by indidebt, Outside on 08/31/2024 2:17 PM CDT BELOW REPORT RECEIVED BY [facility] ON 09/27/2024 07:43:29 [id number] For Patients: As a result of the Century Cures Act, medical imaging exams and procedure reports are released immediately into your electronic medical record. You may view this report before your referring provider. If you have questions, please contact your health care provider. LEFT BREAST MAGNETIC SEED LOCALIZATION USING ULTRASOUND GUIDANCE, 08/31/2024 CLINICAL HISTORY: LEFT breast cancer undergoing preoperative seed localization. LATERALITY: LEFT breast cancer undergoing preoperative seed localization. LESION: 0.9 cm mass at 9 o'clock, 11 cm from the nipple, in the LEFT breast. TECHNIQUE: The magnetic seed was placed using real-time ultrasound guidance with image documentation. Cranial-caudal and medial-lateral digital mammograms were obtained after radioactive seed placement. CONSENT and TIME OUT: The procedure, risks, and alternatives were explained to the patient and a consent was signed. Stella Protocol was followed including pre-procedure verification that relevant information/documentation was available, reviewed and properly matched to the patient; consent accurate and complete; and equipment and supplies available. Time Out was conducted just prior to starting procedure to verify the four required elements: patient identity, correct side/site marked (if applicable), procedure, relevant images/results properly labeled and displayed (if applicable). PROCEDURE: The skin was prepped with ChloraPrep and 3 cc of 1 percent lidocaine was injected for local anesthesia. The seed was deposited via an 18-gauge needle within the targeted breast mass using ultrasound guidance. The patient tolerated the procedure well. Cranial-caudal and medial-lateral digital mammographic views of the breast were obtained after seed placement. PROXIMITY OF SEED TO LESION: On target within the mass. Impression: Successful breast magnetic seed localization. ACR not applicable. Dictated by: Mary Beth Del Valle MD @08/31/2024 1:00:05 PM /sp READ BY Mary Beth Del Valle RELEASED BY TENZIN Addendum by indidebt, Outside on 08/31/2024 2:17 PM CDT BELOW REPORT RECEIVED BY [facility] ON 09/27/2024 07:43:00 [id number] For Patients: As a result of the Century Cures Act, medical imaging exams and procedure reports are released immediately into your electronic medical record. You may view this report before your referring provider. If you have questions, please contact your health care provider. LEFT BREAST MAGNETIC SEED LOCALIZATION USING ULTRASOUND GUIDANCE, 08/31/2024 CLINICAL HISTORY: LEFT breast cancer undergoing preoperative seed localization. LATERALITY: LEFT breast cancer undergoing preoperative seed localization. LESION: 0.9 cm mass at 9 o'clock, 11 cm from the nipple, in the LEFT breast. TECHNIQUE: The magnetic seed was placed using real-time ultrasound guidance with image documentation. Cranial-caudal and medial-lateral digital mammograms were obtained after radioactive seed placement. CONSENT and TIME OUT: The procedure, risks, and alternatives were explained to the patient and a consent was signed. Stella Protocol was followed including pre-procedure verification that relevant information/documentation was available, reviewed and properly matched to the patient; consent accurate and complete; and equipment and supplies available. Time Out was conducted just prior to starting procedure to verify the four required elements: patient identity, correct side/site marked (if applicable), procedure, relevant images/results properly labeled and displayed (if applicable). PROCEDURE: The skin was prepped with ChloraPrep and 3 cc of 1 percent lidocaine was injected for local anesthesia. The seed was deposited via an 18-gauge needle within the targeted breast mass using ultrasound guidance. The patient tolerated the procedure well. Cranial-caudal and medial-lateral digital mammographic views of the breast were obtained after seed placement. PROXIMITY OF SEED TO LESION: On target within the mass. Impression: Successful breast magnetic seed localization. ACR not applicable. Dictated by: Mary Beth Del Valle MD @08/31/2024 1:00:05 PM /sp READ BY Mary Beth Del Valle RELEASED BY TENZIN Narrative IMAGING - 09/27/2024 7:56 AM CDT This order has been created and auto-finalized to support the import of outside images. If available, original interpretation can be found on the Media Tab in Chart Review, in Document Viewer, as an image in InfinityView or as an Addendum. If a re-interpretation or overread is required please follow defined workflow. Procedure Note Digital Media, Outside - 09/27/2024 This order has been created and auto-finalized to support the import ofoutside images. If available, original interpretation can be found on theMedia Tab in Chart Review, in Document Viewer, as an image in InfinityViewor as an Addendum. If a re-interpretation or overread is required please follow definedworkflow. us Provider Not In System IMG BI PROCEDURES Edited Result - Final IMAGING NA * Outside MG Mammogram (08/31/2024 12:05 AM CDT) Only the most recent of2 resultswithin the time period is included. 08/31/2024 3:30 PM CDT Addenda Addendum by indidebt, Outside on 08/31/2024 3:30 PM CDT BELOW REPORT RECEIVED BY [facility] ON 09/27/2024 07:43:39 [id number] For Patients: As a result of the Century Cures Act, medical imaging exams and procedure reports are released immediately into your electronic medical record. You may view this report before your referring provider. If you have questions, please contact your health care provider. SPECIMEN RADIOGRAPH LEFT BREAST 08/31/2024 CLINICAL HISTORY: Magnetic seed localized lumpectomy due to the history of LEFT breast cancer. COMPARISON: Images from ultrasound-guided localization and post-localization mammogram 08/31/2024. FINDINGS/ Impression: Two views of the lumpectomy specimen were obtained. The magnetic seed and biopsy clip are visualized. Results were immediately verbally reported by Dr. Del Valle to Dr. Christie and the pathology department fulfillment representative. ACR not applicable. Dictated by: Mary Beth Del Valle MD @08/31/2024 3:11:44 PM /sp READ BY Mary Beth Del Valle RELEASED BY TENZIN Addendum by indidebt, Outside on 08/31/2024 3:30 PM CDT BELOW REPORT RECEIVED BY [facility] ON 09/27/2024 07:43:00 [id number] For Patients: As a result of the Century Cures Act, medical imaging exams and procedure reports are released immediately into your electronic medical record. You may view this report before your referring provider. If you have questions, please contact your health care provider. SPECIMEN RADIOGRAPH LEFT BREAST 08/31/2024 CLINICAL HISTORY: Magnetic seed localized lumpectomy due to the history of LEFT breast cancer. COMPARISON: Images from ultrasound-guided localization and post-localization mammogram 08/31/2024. FINDINGS/ Impression: Two views of the lumpectomy specimen were obtained. The magnetic seed and biopsy clip are visualized. Results were immediately verbally reported by Dr. Del Valle to Dr. Christie and the pathology department fulfillment representative. ACR not applicable. Dictated by: Mary Beth Del Valle MD @08/31/2024 3:11:44 PM /sp READ BY Mary Beth Del Valle RELEASED BY TENZIN Narrative IMAGING - 09/27/2024 7:56 AM CDT This order has been created and auto-finalized to support the import of outside images. If available, original interpretation can be found on the Media Tab in Chart Review, in Document Viewer, as an image in InfinityView or as an Addendum. If a re-interpretation or overread is required please follow defined workflow. Procedure Note Digital Media, Outside - 09/27/2024 This order has been created and auto-finalized to support the import ofoutside images. If available, original interpretation can be found on theMedia Tab in Chart Review, in Document Viewer, as an image in InfinityViewor as an Addendum. If a re-interpretation or overread is required please follow definedworkflow. us Provider Not In System IMG BI PROCEDURES Edited Result - Final IMAGING NA * Outside MR Breast (08/02/2024 5:30 AM CDT) 08/02/2024 11:3 1 AM CDT Addenda Addendum by indidebt, Outside on 08/02/2024 11:31 AM CDT BELOW REPORT RECEIVED BY [facility] ON 09/27/2024 07:50:09 [id number] For Patients: As a result of the [...] plane. Image post-processing was performed on a [employer] workstation. Complex 3D rendering including maximum intensity [...] liver MR without and with contrast. BI-RADS: 7-nkpeef-wiglfd malignancy Dictated by: Deonna Montesinos MD @08/02/2024 11:05:14 AM CRL/djw READ BY Deonna Montesinos RELEASED BY ESTUARDO Addendum by indidebt, Outside on 08/02/2024 11:31 AM CDT BELOW REPORT RECEIVED BY [facility] ON 09/27/2024 07:48:30 [id number] For Patients: As a result of the [...] plane. Image post-processing was performed on a [employer] workstation. Complex 3D rendering including maximum intensity [...] liver MR without and with contrast. BI-RADS: 9-[id number]-xdhznh malignancy Dictated by: Deonna Montesinos MD @08/02/2024 11:05:14 AM CRL/djw READ BY Deonna Montesinos RELEASED BY ESTUARDO Addendum by indidebt, Outside on 08/02/2024 11:31 AM CDT BELOW REPORT RECEIVED BY [facility] ON 09/27/2024 07:47:41 [id number] For Patients: As a result of the [...] plane. Image post-processing was performed on a [employer] workstation. Complex 3D rendering including maximum intensity [...] liver MR without and with contrast. BI-RADS: 9-krtgdl-bsezcy malignancy Dictated by: Deonna Montesinos MD @08/02/2024 11:05:14 AM CRL/djw READ BY Deonna Montesinos RELEASED BY ESTUARDO Narrative IMAGING - 09/27/2024 8:06 AM CDT This order has been created and auto-finalized to support the import of outside images. If available, original interpretation can be found on the Media Tab in Chart Review, in Document Viewer, as an image in InfinityView or as an Addendum. If a re-interpretation or overread is required please follow defined workflow. Procedure Note Digital Media, Outside - 09/27/2024 This order has been created and auto-finalized to support the import ofoutside images. If available, original interpretation can be found on theMedia Tab in Chart Review, in Document Viewer, as an image in InfinityViewor as an Addendum. If a re-interpretation or overread is required please follow definedworkflow. us Provider Not In System IMG MRI PROCEDURES Edited Result - Final Performing Organization Address City/State/[facility] Co de Phone Number IMAGING NA from Last 3 Months Insurance MEDICARE [facility] [employer]
--- OUTSIDE RECORDS SUMMARY | 2024-10-30 06:42 | XMS_ITS ---
Author Organization [facility] Address [address] [place] [address] Care Team Providers Care Ladies Attendant Name Role Phone Unavailable Primary Care Provider Unavailabl e Active Problems * This document contains information received from the source organization and may not represent a complete record from that organization. 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 Past Treatment and Therapy Plans No past plan information found. 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
--- OUTSIDE RECORDS SUMMARY | 2024-10-30 06:42 | XMS_ITS | Encounter Summary ---
Author Organization [facility] Address [address] [place] [id number] Care Team Providers Care Administrative Services Manager Name Role Phone Unavailable Primary Care Provider Unavailabl e Encounter Details Date Type Department Care Team (Late st Contact Info) Description 10/14/2024 Documentation Department of Radiation Oncology in [place], [place] [address] [place] [address] Angeles Lundberg M.D. [address] [place] [address] Social History Tobacco Use Types Packs/Day Years [...] needed for daily living? No 10/09/2024 [facility] Utilities Answer Date Recorded In the past 12 months has e electric, gas, oil, or water company threatened to shut off services in your home? No 10/09/2024 Housing Stability Answer Date Recorded What is your living situation today? I have a [facility] place to live 10/09/2024 Comments Unknown Sex and Gender Information Value Date Recorded Sex Assigned at Female 10/12/2024 7:16 AM CDT Legal Sex Female 4:28 AM [facility] SPECIALIST Gender Identity Female 10/12/2024 7:16 AM CDT Sexual Orientation Straight 10/12/2024 7: 16 AM CDT documented as of this encounter Miscellaneous Notes * Radiation Completion Notes - Danilo Hanson R.N. 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 Treatment Intent: Curative Concomitant Therapy: Hormonal Therapy Single Plan Treatment Course: 1xBreast Plan ID Fractions Dose / Fraction (cGy) Dose Treated (cGy) Dose Planned (cGy) First Treatment Last Treatment Elapsed Days [id number] 10/10/2024 10/14/2024 4 Course Summary 10/10/2024 10/14/2024 4 Radiation Modality: Photons CLINICAL SUMMARY Mrs. Bell Foreman completed radiation treatment as planned without interruptions. The course oftreatment was tolerated well. The patient experienced no toxicities during radiation treatment. TREATMENT RESPONSE: Response to treatment will be determined by post-treatment imaging and/or laboratory work. RECOMMENDED FOLLOW UP: Primary Medical Oncologist - Dr. Morley Signed by: Lynne Hanson R.N., 10/14/2024 1:34 PM CDT [facility] [address] [place] [address] Cosigned by Angeles Lundberg M.D. at 10/14/2024 2:03 PM CDT documented in this encounter Plan of Treatment Not on file documented as of this encounter Visit Diagnoses Not on filedocumented in this encounter
--- OUTSIDE RECORDS SUMMARY | 2024-10-30 06:43 | XMS_ITS | Clinical Summary ---
Author Organization [employer] [facility] Address [facility] [place] [address] Care Team Providers Care Ophthalmic Technician Name Role Phone Velma Sosa Primary Care Provider [phone] [facility]available Jessie Trevizo RN Unavailable Shakira Christie MD Unavailable [phone] Allergies Active Allergy Reactions Criticality Noted Date Comments Adhesive Tape-Silicones Rash 10/30/2023 Paper tape, silk tape, please try KIND tape Aspirin Hives High 12/23/2004 Tolerated Aspirin on 06/12/2018 without difficulty. No hives. [place] Hives High 12/23/2004 Naproxen Hives High 12/23/2004 [...] 1 capsule with each snack 09/06/19 Active Lactobacillus acidophilus 10 billion cell cap Take by mouth. 12/03/19 22 Active albuterol HFA (PRO-AIR; VENTOLIN; PROVENTIL) 90 mcg/actuation inhalerIndicatio ns:Mild intermittent asthma without complication (HC) Inhale 1-2 Puffs by mouth every 4 hours if needed for Shortness Of Breath or Wheezing. 18 g 1 10/30/19 24 Active famotidine (PEPCID) 40 mg tabletIndication s:Urticaria Take 1 Tablet (40 mg) by mouth once daily. 30 Tablet 01/04/20 24 Active fexofenadine (GALILEA) 60 mg tablet Take 60 mg by mouth 2 times daily if needed. Active gabapentin (NEURONTIN) 300 mg capsuleIndicatio ns:Bipolar I disorder (HC) Take 1 Capsule (300 mg) by mouth once daily. In morning 90 Capsule 3 02/19/20 24 Active gabapentin (NEURONTIN) 400 mg capsuleIndicatio ns:Bipolar I disorder (HC) Take 3 Capsules (1,200 mg) by mouth at bedtime. 270 Capsule 3 02/19/20 24 Active hydrOXYzine HCL (ATARAX) 25 mg tablet TAKE ONE TABLET BY MOUTH THREE TIMES DAILY NEEDED FOR ITCHING* Active apixaban (Eliquis) 5 mg tabletIndication s:Paroxysmal atrial fibrillation (HC) Take 1 Tablet (5 mg) by mouth two times daily. 180 Tablet 3 04/27/19 25 Active metoprolol succinate (TOPROL XL) 25 mg Sustained-Releas e tabletIndication s:Paroxysmal atrial fibrillation (HC) Take 1 Tablet (25 mg) by mouth once daily. 90 Tablet 3 04/27/19 25 Active acetaminophen 325 mg tabletIndication s:Malignant 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, estrogen receptor positive (HC) Take 2 Tablets (650 mg) by mouth every 4 hours if needed for Pain. Max acetaminophen dose: 4000mg in 24 hrs. 09/01/19 25 Active anastrozole (ARIMIDEX) 1 mg tabletIndication s:Invasive lobular carcinoma of left breast in female (HC) Take 1 Tablet (1 mg) by mouth once daily. 90 Tablet 3 10/01/19 25 Active Active Problems Patient Care Coordination No te [...] alone now. 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 Malignant neoplasm of left b reast in female, estrogen receptor positive 08/03/2024 Cancer Staging:Clinical stage from 08/03/2024:Stage IIA(cT2, cN0, cM0, G2, ER+, MN-, HER2-) - Signed by Shakira Christie MD on 08/03/2024 Pathologic stage from 09/14/2024:Stage IA(pT1c, pN0, cM0, G2, ER+, MN+, HER2-) - Signed by Shakira Christie MD on 09/14/2024 Malignant neoplasm of colon 02/05/2024 Intra-abdominal abscess post-procedure 4 Excessive skin and subcutaneous tissue Abdominal pannus [...] (12/02/2016): Added automatically from request for surgery [id number] Macromastia 12/02/2016 Overview (12/02/2016): Added automatically from request for surgery [id number] Panniculitis 12/02/2016 Chronic midline low back pain without sciatica 0 12/02/2016 Overview (12/02/2016): Added automatically from request for surgery [id number] Iron deficiency anemia, unspecified 04/25/2016 Esophageal dysmotility [...] Repeat u/s in 01/2021, no changes from 2019. Plan to repeat in 3 years. CKD [...] Encounters Date Type Department Care Team Description 10/27/2024 Orders Only [facility] Scanner 1 scan: (1-Ord) TC ORTHO, LT KNEE INJ, 10/27/2024 10/27/2024 Orders Only [facility] Scanner 1 scan: (1-Ord) TC ORTHO, LT KNEE INJ, 10/27/2024 10/27/2024 Telephone [facility] [address] [place] [address] [address] [place] [address] Alfredo Stubbs MD Medication Management 10/17/[address] [facility] [address] [facility] [address] [place] [address] [facility] Cancer Appointment 10/12/2024 1:00 PM CDT Office Visit [facility] [address] [place] [phone] Zeinab Laboy, PhD, LP Individual Therapy 10/12/2024 Travel 10/03/2024 Telephone [facility] [address] [place] [address] [facility] Financial Questions/Services (Financial navigation review) 09/30/2024 1:00 PM CDT Office Visit [facility] [address] [facility] [address] [place] [address] Denny Morley MD Consult 09/30/2024 Travel 09/29/2024 9:47 AM CDT - 09/29/2024 11:59 PM CDT Hospital Encounter [facility] [place] [address] [place] [address] [address] [place], [place] [id number] Pratik, Shakira Bhavana, MD Latrell, Trish M, PT Malignant neoplasm of left breast in female, estrogen receptor positive, unspecified site of breast (HC) 09/28/2024 1:37 PM CDT - 09/28/2024 2:37 PM CDT Surgery [facility] [address] [place] [address] Feng Larsen MD ENDOSCOPIC ULTRASOUND UPPER 09/28/2024 12:52 PM CDT Anesthesia Event [facility] [address] [place] [address] Omi Humphries MD Hazelton, Michelle M, ONLINE TRADER 09/28/2024 11:04 AM CDT - 09/28/2024 2:19 PM CDT Hospital Encounter [facility] [address] [place] [address] Feng Larsen MD Discharge Disposition: Home Self Care 09/28/2024 Travel 09/27/2024 Telephone [facility] [address] [place] [address] Zeinab Laboy, PhD, LP Appointment 09/19/2024 9:30 AM CDT Office Visit [facility] [address] [place] [address] Velma Sosa PA Preoperative Exam ([place]-Dr. Larsen-09/28/24-endos copic US upper) 09/19/2024 Travel 09/13/2024 1:45 PM CDT Office Visit [facility] [address] [address] Shakira Christie MD Post-op 09/13/2024 Travel 09/08/2024 Travel 09/08/2024 Telephone [facility] [address] Maya [address] [place] [address] Alfredo Stubbs MD 2024 Telephone [facility] [address] [place] [address] Shakira Christie MD 08/31/2024 1:38 PM CDT Anesthesia Event [facility] [address] [place] [address] ShannonValdez oakleyDO 08/31/2024 1:28 PM CDT - 08/31/2024 3:38 PM CDT Surgery [facility] [address] [place] [address] Shakira Christie MD Magnetic seed localized left breast lumpectomy with left sentinel lymph node biopsy 08/31/2024 7:32 AM CDT - 08/31/2024 4:40 PM CDT Hospital Encounter [facility] [address] [place] [address] Shakira Christie MD Malignant neoplasm of left breast in female, estrogen receptor positive, unspecified site of breast (HC) (Primary Dx); Malignant 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, estrogen receptor positive (HC) Discharge Disposition: Home Self Care 08/30/2024 Travel 08/29/2024 Orders Only [facility] Scanner 1 scan: (1-Ord) CONSTANCE HILLMAN RT 2VW, 08/29/2024 08/23/2024 11:10 AM CDT Office Visit [facility] [address] [place] [address] Velma Sosa PA Preoperative Exam (Left breast lumpectomy-Dr. ChristieCggrez-Egfbtl-3/25/ 25) 08/23/2024 Travel 08/21/2024 Travel 08/18/2024 8:15 AM CDT Ancillary Procedure [facility] [address] [place] [address] 08/18/2024 Travel 08/15/2024 Travel 08/11/2024 Telephone [facility] [address] [address] Shakira Christie MD 08/11/2024 E-Visit [facility] [address] [place] [address] Velma Sosa PA swelling on side of head 08/10/2024 Telephone [facility] [address] [place] [address] Emilia Chaney, , CGC Results (Hereditary Cancer Genetics/) 08/09/2024 Orders Only [facility] [address] [place] [address] Sarah Reza MD <No scans attached> 08/05/2024 10:30 AM CDT Ancillary Procedure [facility] [address] [facility] [address] [place] [address] 08/04/2024 1:30 PM CDT Telemedicine [facility] [address] [place] [address] Emilia Chaney MS, CGC Counseling (Hereditary Cancer Genetics/) 08/04/2024 Travel 08/03/2024 11:05 AM CDT - 08/03/2024 11:59 PM CDT Hospital Encounter [facility] [address] [place] [address] Shakira Christie MD Malignant 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, estrogen receptor positive (HC) 08/03/2024 9:00 AM CDT Office Visit [facility] [address] [address] Shakira Christie MD Consult (Newly diagnosed breast cancer) 08/03/2024 Telephone [facility] [address] [place] [address] Roxy Richard Cancer Genetics 08/03/2024 Orders Only [facility] [address] [place] [address] Emilia Chaney, MS, CGC Lab 08/03/2024 Orders Only [facility] [address] [place] [address] Emilia Chaney, , CGC <No scans attached> 08/03/2024 Telephone [facility] [address] [address] Shakira Christie MD Appointment 08/02/2024 5:32 AM CDT - 08/02/2024 11:59 PM CDT Hospital Encounter [facility] [address] [place] [id number] Shakira Christie MD Malignant neoplasm of left female breast, unspecified estrogen receptor status, unspecified site of breast (HC) 08/02/2024 Travel from Last 3 Months Immunizations Immunization [...] Family History Medical History Relation Name Comments Cancer-pancreatic Brother 1 Sixto Cancer-prostate Brother 1 Sixto Heart Disease Brother 2 AL - age 50's Heart Disease Brother 3 AL - age 50's Cancer Daughter cervical Heart Disease Father Tyrell [place] - age 70's Hypertension Father Tyrell Stroke [...] on file Legal Sex Female 5:27 AM [employer] Gender Identity Not on file Sexual Orientation Not on file Obstetrics History Para Term AB IAB SAB Ectopic Multiple Livin g Live Births 4 4 4 Date Outcome GA Total Labor Labor/2nd/3rd Weight Sex Type Anes PTL Teodora A1 A5 Name Clin Term Term Term Term Last Filed Vital Signs Vital Sign Reading Time Taken Comments Blood Pressure 140/77 09/30/2024 12:52 PM CDT Pulse 71 09/30/2024 12:52 PM CDT Temperature 36.7 C (98 F) 09/30/2024 12:52 PM CDT Respiratory Rate 20 09/30/2024 12:52 PM CDT Oxygen Saturation 97% 09/30/2024 12:52 PM CDT Inhaled Oxygen Concentration - - Weight 95.8 kg (211 lb 4.8 oz) 09/30/2024 12:52 PM CDT Height 175.5 cm (5' 9.09) 09/30/2024 12:52 PM C DT Body Mass Index 31.12 09/30/2024 12:52 PM CDT Plan of Treatment Upcoming Encounters Date Type Department Care Team (Late st Contact Info) Description 11/02/2024 10:20 AM CDT Telemedicine [facility] [address] [place] [address] Patty Guzman NP [address] [place] [address] 11/22/2024 9:30 AM CDT Office Visit [facility] [address] [place] [address] Velma Sosa PA [address] [place] [address] 11/29/2024 11:00 AM CDT Orders Only [facility] [address] [facility] [place] [address] [place] [address] 12/02/2024 2:30 PM CDT Office [facility] [address] [facility] [address] [place] [address] Denny Morley MD [address] [place] [address] 12/02/2024 3:[address] [facility] [address] [facility] [address] [place] [address] 01/02/2025 9:00 AM CDT Orders Only [facility] [address] [place] [address] Lab, [place] 01/05/2025 11:30 AM CDT Office Visit [facility] [address] [place] [address] Sarah Reza MD [address] [place] [address] Health Maintenance Due Date Last Done Comments Medicare Wellness for age 65+ 01/22/2024 01/21/2023, 01/22/2022, 01/21/2021, Additional history exists Depression screening for age 12+ 02/04/2024 02/03/2023, 01/21/2023, 11/11/2022, Additional history exists COVID-19 vaccine series (9 - Pfizer risk season) 2024 12/10/2023, 12/10/2022, 09/23/2022, Additional history exists Colonoscopy through age 75 11/02/202411/02, 06/04/2023, 06/04/2023, Additional history exists Influenza Vaccine (#1) 2024 , 01/10/2022, 12/14/2020, Additional history exists BMI (ht and wt on same day) for age 18+ 09/30/2025 09/30/2024, 09/19/2024, 09/13/2024, Additional history exists Tetanus booster 04/15/2026 04/15/2016, 12/08, 01/01/2006 (Completed outside of [facility]) Lipids for age 45-75 08/23/2029 08/23/2024, 07/07/2023, 06/11/2022, Additional history exists Hepatitis C screening for age 18-79 Completed 06/13/2020 Pneumococcal series for age 50+ Completed 01/21/2021, 02/14/2015, 12/21/2013, Additional history exists DEXA/DXA scan for age 65+ Completed 2022, 01/18/2018, 03/29/2008 (Completed outside of [facility]) Zoster (shingles) series for age 50+ Completed 09/23/2022, 01/28/2022, 04/15/2016 RSV vaccine for adults or Completed 12/02/2022 Hepatitis B series for 19+ Aged Out N o longer eligible based on patient's age to complete this topic Procedures Procedure Name Priority Date/Time Associated Diagnosis Comments SCAN-OPERATIVE/PROC EDURE REPORT 10/27/2024 12:00 AM CDT SCAN-OPERATIVE/PROC EDURE REPORT 10/27/2024 12:00 AM CDT ENDOSCOPY 09/28/2024 12:54 PM CDT ENDOSCOPIC ULTRASOUND medical professionals 2: within 30 days 09/28/2024 12:42 PM CDT see MD note CBC WITH AUTO DIFFERENTIAL Routine 09/19/2024 10:38 AM CDT Iron deficiency FERRITIN Routine 09/19/2024 10:38 AM CDT Iron deficiency IRON PLUS IRON BINDING CAP Routine 09/19/2024 10:38 AM CDT Iron deficiency BASIC METABOLIC PANEL Routine 09/19/2024 10:38 AM CDT Pre-op exam GLUCOSE METER Timed 08/31/2024 4:23 PM CDT XR BREAST SPECIMEN LEFT GARRY 08/31/2024 3:14 PM CDT Malignant 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, estrogen receptor positive (HC) PATH TISSUE EXAM Today 08/31/2024 2:26 PM CDT SUPRAGLOTTIC-LMA Routine 08/31/2024 2:00 PM CDT LUMPECTOMY BREAST WITH MAGNETIC SEED LOCALIZATION AND SENTINEL LYMPH NODE BIOPSY Tier 2: within 30 days 08/31/2024 1:23 PM CDT Malignant 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, estrogen receptor positive (HC) XR MAMMO POST LOCALIZATION LT GARRY 08/31/2024 8:59 AM CDT Malignant 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, estrogen receptor positive (HC) NM INJ SENTINEL NODE BREAST LEFT [facility] 08/31/2024 8:50 AM CDT Malignant 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, estrogen receptor positive (HC) US BREAST MAGNETIC SEED LOCALIZATION LEFT Routine 08/31/2024 8:47 AM CDT Malignant 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, estrogen receptor positive (HC) SCAN-RADIOLOGY REPORT 08/29/2024 12:00 AM CDT LIPID PANEL W REFLEX MEASURED LDL Routine [...] receptor status, unspecified site of breast (HC) COLONOSCOPY 11/03/2023 11:54 AM CDT XR DXA BONE DENSITY 2 SITES AXIAL Routine 08/07/2022 1:19 PM CDT Exocrine pancreatic insufficiency (HC) Bariatric surgery status ANTI HCV Add On 06/13/2020 2:29 PM CDT Need for hepatitis C screening test from Last 3 Months or Most Recently Relevant to Health Maintenance Results * SCAN-OPERATIVE/PROCEDURE REPORT (10/27/2024 12:00 AM CDT) us Scanner OTHER Final Result * SCAN-OPERATIVE/PROCEDURE REPORT (10/27/2024 12:00 AM CDT) us Scanner OTHER Final Result * ENDOSCOPY (09/28/2024 12:54 PM CDT) 09/28/2024 12:5 4 PM CDT Narrative Transcriptions Feng Larsen MD - 09/28/2024 1:45 PM CDT [facility] Patient Name: Bell Foreman Procedure Date: 09/28/2024 Gender: Female Date of : 1950 Admit Type: Ambulatory Procedure: Upper EUS Proceduralist: Feng Larsen MD - [facility] Referring MD: Feng Larsen MD Indications/Pre-Op Diagnosis: JORDANA mutation, FH of pancreas cancer Medications: Monitored Anesthesia Care Procedure Description: Risk of bleeding, infection, perforation, pancreatitis, need for surgery, remote chance of and alternatives were discussed, andthe patient gave informed consent. The endoscope [id number] was introduced through the mouth, and advanced to the third part of duodenum. The upper EUS wasaccomplished without difficulty. The patient tolerated the procedure well. Complications: No immediate complications. Estimated Blood Loss & Specimen: Estimated blood loss: none. Specimen collected: None Findings: ENDOSCOPIC FINDING: : Evidence of a gastric bypass was found. A gastric pouch with a normal size was found. The staple line appeared intact. The gastrojejunal anastomosis was characterized by healthy appearing mucosa. This was traversed. The oaxuf-zv-enwjhpi limb was characterized by healthy appearing mucosa. ENDOSONOGRAPHIC FINDING: : There was no sign of significant endosonographic abnormality in the common bile duct. The maximum diameter of the duct was 9 mm. Nostones, no biliary sludge, ducts of normal caliber and ducts with regular contour were identified. There was no sign of significant endosonographic abnormality in theleft lobe of the liver. No focal pathology was identified. There was no sign of significant endosonographic abnormality in thegenu of the pancreas, pancreatic body and pancreatic tail. The pancreatic duct measured up to 2 mm in diameter in the neack and 1 mm in thetail. No masses, no cysts. The aortopulmonary region (level 5), subcarinal mediastinum (level 7) and celiac region (level 20) nodes were endosonographically normal.No pathologic lymphadenopathy was identified. Impressions/Post-Op Diagnosis: - Gastric bypass with a normal-sized pouch and intact staple line. Gastrojejunal anastomosis characterized by healthy appearingmucosa. - There was no sign of significant pathology in the common bileduct. - There was no evidence of significant pathology in the left lobe ofthe liver. - There was no sign of significant pathology in the genu of the pancreas, pancreatic body and pancreatic tail. Recommendation: - Perform magnetic resonance imaging (MRI) with gadolinium in 1year. Feng Larsen MD 09/28/2024 1:45:09 PM This report has been signed electronically. Note Initiated On: 09/28/2024 12:54 PM Feng Larsen MD PROCEDURE ORD Final Result * IRON PLUS IRON BINDING CAP (09/19/2024 10:38 AM CDT) Pathologist [facility] [place] IRON, TOTAL 90 45 - 160 mcg/dL [facility] IRON BINDING CAPACITY 333 250 - 450 mcg/dL (calc) [facility] % SATURATION 27 16 - 45 % (calc) [facility] Blood BLOOD SPECIMEN / Unknown 09/19/2024 10:38 AM CDT 09/19/2024 10:38 AM CDT Velma RICARDO CHEMISTRY Final Resu lt [employer] [facility] [address] [place] [address], Last [facility] [address] [place] [address] * (ABNORMAL) CBC AND DIFFERENTIAL (09/19/2024 10:38 AM CDT) Pathologist [facility] [place] WHITE BLOOD CELL COUNT 4.2 3.8 - 10.8 Thousand/u L [facility] RED BLOOD CELL COUNT 5.09 3.80 - 5.10 Million/uL [facility] HEMOGLOBIN 14.4 11.7 - 15.5 g/dL [facility] HEMATOCRIT 45.7(H) 35.0 - 45.0 % [facility] MCV 89.8 80.0 - 100.0 fL [facility] MCH 28.3 27.0 - 33.0 pg [facility] MCHC 31.5(L) 32.0 - 36.0 g/dL [facility] Comment: For adults, a slight decrease in the calculated MCHC value (in the range of 30 to 32 g/dL) is most likely not clinically significant; however, it should be interpreted with caution in correlation with other red cell parameters and the patient's clinical condition. RDW 17.1(H) 11.0 - 15.0 % [facility] PLATELET COUNT 286 140 - 400 Thousand/u L [facility] MPV 9.4 7.5 - 12.5 fL [facility] ABSOLUTE NEUTROPHILS 2,167 1,500 - 7,800 cells/uL [facility] ABSOLUTE LYMPHOCYTES 1,512 850 - 3,900 cells/uL [facility] ABSOLUTE MONOCYTES 382 200 - 950 cells/uL [facility] ABSOLUTE EOSINOPHILS 109 15 - 500 cells/uL [facility] ABSOLUTE BASOPHILS 29 0 - 200 cells/uL [facility] NEUTROPHILS 51.6 % [facility] LYMPHOCYTES 36.0 % [facility] MONOCYTES 9.1 % [facility] EOSINOPHILS 2.6 % [facility] BASOPHILS 0.7 % [facility] Blood BLOOD SPECIMEN / Unknown 09/19/2024 10:38 AM CDT 09/19/2024 10:38 AM CDT us Velma RICARDO HEMATOLOGY Final Resu lt [facility] [employer] [facility] [address] [place] [address], [facility] [address] [place] [address] * FERRITIN (09/19/2024 10:38 AM CDT) [facility] FERRITIN 84 16 - 288 ng/mL [facility] Blood BLOOD SPECIMEN / Unknown 09/19/2024 10:38 AM CDT 09/19/2024 10:38 AM CDT Velma RICARDO CHEMISTRY Final Resu lt [employer] [facility] [address] [place] [address], [facility] [address] [place] [address] * (ABNORMAL) BASIC METABOLIC PANEL (09/19/2024 10:38 AM CDT) [facility] GLUCOSE 105(H) 65 - 99 mg/dL [facility] Comment: Fasting reference interval For someone without known diabetes, a glucose value between 100 and 125 mg/dL is consistent with prediabetes and should be confirmed with a follow-up test. UREA NITROGEN (BUN) 24 7 - 25 mg/dL [facility] CREATININE 1.15(H) 0.60 - 1.00 mg/dL [facility] EGFR 50(L) > OR = 60 mL/min/1.7 3m2 [facility] BUN/CREATININE RATIO 21 6 - 22 (calc) [facility] SODIUM 140 135 - 146 mmol/L [facility] POTASSIUM 4.0 3.5 - 5.3 mmol/L [facility] CHLORIDE 105 98 - 110 mmol/L [facility] CARBON DIOXIDE 27 20 - 32 mmol/L [facility] ELECTROLYTE BALANCE 8 7 - 17 mmol/L (calc) [facility] CALCIUM 9.6 8.6 - 10.4 mg/dL [facility] Blood BLOOD SPECIMEN / Unknown 09/19/2024 10:38 AM CDT 09/19/2024 10:38 AM CDT us Velma RICARDO CHEMISTRY Final Resu lt Performing Organization Address [facility]/ZIP Co de Phone Number [facility] [address] [place] [address], [place] [phone] [facility] [address] [place] [address] * (ABNORMAL) GLUCOSE METER (08/31/2024 4:23 PM CDT) GLUCOSE METER 128(H) 65 - 100 mg/dL 08/31/2024 4:28 PM CDT [facility] Blood BLOOD SPECIMEN / Unknown 08/31/2024 4:23 PM CDT 08/31/2024 4:28 PM CDT Shakira Christie MD CHEMISTRY Final Res ult Performing Organization Address [facility] Co de Phone Number [facility] [address] [address], [place] * XR BREAST SPECIMEN LEFT (08/31/2024 3:14 PM CDT) Anatomical Region Laterality Modality Breast Left N/A Mammography Impressions 08/31/2024 3:30 PM CDT Two views of the lumpectomy specimen were obtained. The magnetic seed and biopsy clip are visualized. Results were immediately verbally reported by Dr. Del Valle to Dr. Christie and the pathology department hostess party sales representative. ACR not applicable. Dictated by: Mary Beth Del Valle MD @08/31/2024 3:11:44 PM /sp Narrative 08/31/2024 3:30 PM CDT For Patients: As a result [...] ultrasound-guided localization and post-localization mammogram 08/31/2024. FINDINGS/ us Shakira Christie MD MAMMO Final Res ult * PATH TISSUE EXAM (08/31/2024 2:26 PM CDT) Case Report Pathology Report Case: [id number] Authorizing Provider: Shakira Christie MD Collected: 08/31/2024 1426 Ordering Location: [facility] Received: 08/31/2024 [facility] Pathologist: Jessie Sykes MD Specimens: A) - Left Breast Mass, Immediate gross and intra-operative assessment, and specimen radiograph B) - Left Axillary [place] Lymph Node 1 09/30/2024 5:19 PM CDT [facility] Amendment 09/30/2024 - Per Dr Morley, tissue was submitted to [facility] for Oncotype DX Breast Cancer testing, please see attached scanned report for results. 09/30/2024 5:19 PM CDT [facility] Final Diagnosis A) LEFT BREAST, MAGNETIC SEED LOCALIZED LUMPECTOMY: 1. Invasive lobular carcinoma with focal tubule formation, [place] grade II of III a. Size: 15 [...] Breast Ancillary Testing: Performed on prior case ([id number]) a. Hormone Receptors: Estrogen receptor: Positive (99%, strong staining) Progesterone receptor: Positive (95%, strong staining) b. HER2 by IHC: Negative (1+ by manual morphometry) c. Ki67: 5% B) LEFT AXILLARY SENTINEL LYMPH NODE, EXCISIONAL BIOPSY: 1. Single lymph node, negative for malignancy (0/1) 09/30/2024 5:19 PM CDT [facility] Amendment electronically signed by Jessie Sykes MD on 09/30/2024 at 1719 CDT at 1736 CDT Clinical Information Left breast mass at 9-10:00 11 cm from the nipple with biopsy showing invasive lobular carcinoma, grade II ([id number]) Breast MRI demonstrated the following: FINDINGS: Amount of Fibroglandular Tissue: Scattered. Breast [...] is negative. 3. No suspicious lymph nodes. 09/30/2024 5:19 PM CDT [facility] Gross Description A) Received fresh, labeled with the patient's name and left breast mass, is a 46 gram, 6.5 (M-L) x 6 (S-I) x 4 (A-P) cm magnetic seed localized breast lumpectomy specimen. The biopsy clip is identified within the specimen. The specimen is inked by the surgical staff in the OR as follows: Anterior--[place] Posterior--Black Superior--Blue Inferior--Red Medial--Green Lateral--Yellow The specimen is serially sectioned from lateral to medial into 9 slices revealing a 1.4 (M-L) x 1.1 (A-P) x 0.8 (S-I) cm spiculated salgado mass within slice(s) 5-8 with the following characteristics: Biopsy site change: Present in slices 5-6 Biopsy clip: Is grossly identified Closest margin: Posterior Distance to margins: Anterior: 1.2 cm Posterior: 0.5 cm Inferior: Greater than 2 cm Superior: 1.5 cm Medial: 1 cm Lateral: Greater than 2 cm The remaining cut surfaces consist of approximately 90% adipose tissue and 10% fibrous tissue. No other lesions are identified. Acquisition Cost Estimator sections are submitted as follows: 1. Sections perpendicular to lateral margin (from slice 1) 2. Superior half, slice 2 3. Section from slice 3 with posterior margin 4. Slice 4 with posterior margin, adjacent to tumor 5. Tumor and biopsy site in slice 5 with relation to posterior margin 6. Tumor from slice 6 with posterior margin 7-11. Composite slice 7 with tumor 12. Tumor in slice 8 with posterior margin 13. Sections perpendicular to medial margin, adjacent to tumor An annotated photograph including sections taken is uploaded to the case. Time removed from patient: 1426 Time placed in formalin: 1500 Date removed and placed in formalin: 08/31/2024 Cold ischemic time < 60 minutes. The specimen was fixed in formalin for a minimum of 6 hours and not longer than 72 hours. TRB 08/31/2024 B) Received fresh labeled with the patient's name and left axillary sentinel lymph node 1, is a 5.0 x 4.0 x 1.3 cm aggregate of yellow lobulated focally cauterized adipose tissue containing a single salgado-pink lymph node (2.0 x 1.0 x 0.7 cm). The adherent adipose tissue is trimmed, and the lymph node is trisected to reveal salgado-pink focally hyperemic cut surfaces. The trisected lymph node is submitted entirely in 3 cassettes. Time removed from patient: 1446 Time placed in formalin: 1500 Date removed and placed in formalin: 08/31/2024 Cold ischemic time < 60 minutes. The specimen was fixed in formalin for a minimum of 6 hours and not longer than 72 hours. ADW 08/31/2024 09/30/2024 5:19 PM CDT [facility] Intraoperative Consultation A) LEFT BREAST MASS, LUMPECTOMY, INTRAOPERATIVE CONSULTATION WITH GROSS EXAMINATION: 1. Mass with clip and marking seed readily identified 2. Mass is 5 mm from posterior (nearest) margin Fuad Willis MD, 08/31/2024 2:45 PM Intraoperative consultation, which may have included frozen section preparation, gross specimen examination, and/or cytology touch imprints/smears, was performed by a pathologist during the surgical procedure. This testing was performed at: [facility] [address], [place] [address] 09/30/2024 5:19 PM CDT [facility] Microscopic Description The final diagnosis is based on microscopic examination of appropriate sections of all specimens. E-cadherin was performed on the previous biopsy ([id number]) and demonstrated loss of membranous staining in the invasive carcinoma and LCIS. 09/30/2024 5:19 PM CDT [facility] SYNOPTIC REPORTING INVASIVE CARCINOMA OF THE BREAST: Resection INVASIVE CARCINOMA OF THE BREAST: RESECTION - All Specimens 8th Edition - Protocol posted: 08/26/2023 SPECIMEN Procedure: Excision (less than total mastectomy) [...] Examined (sentinel and non-sentinel): 1 Number of [place] Nodes Examined: 1 pTNM CLASSIFICATION (AJCC 8th Edition) Reporting of pT, pN, and (when applicable) pM categories is based on information available to the pathologist at the time the report is issued. As per the AJCC (Chapter 1, 8th Ed.) it is the managing physician's responsibility to establish the final pathologic stage based upon all pertinent information, including but potentially not limited to this pathology report. pT Category: pT1c pN Category: pN0 N Suffix: (sn) SPECIAL STUDIES Estrogen Receptor (ER) Status: Positive (greater than 10% of cells demonstrate nuclear positivity) Progesterone Receptor (PgR) Status: Positive HER2 (by immunohistochemis try): Negative (Score 1+) Ki-67 Percentage of Positive Nuclei: 5 % Testing Performed on Comment(s): Blocks for potential future ancillary studies: A6 09/30/2024 5:19 PM CDT [facility] Additional Information Interpreted at [facility] Here@ [facility] - [address], [place] [address] 09/30/2024 5:19 PM CDT [facility]- ENTRRI [facility]ATORY Tissue (Left Breast Mass) 08/31/2024 2:26 PM CDT 08/31/2024 2:32 PM CDT Tissue specimen (specimen) (Left Axillary [place] Lymph Node 1) 08/31/2024 2:46 PM CDT 08/31/2024 3:00 PM CDT Shakira Christie MD PATHOLOGY/CYTOLOGY Edited Result - Final [facility] [address] [place] [address], * HCHG MASK PR10 (08/31/2024 2:00 PM CDT) Narrative Alessandra Garzon CRNA - 08/31/2024 2:00 PM CDT Alessandra Garzon CRNA 08/31/2024 2:01 PM Procedure: Supraglottic Patient location during procedure: OR Supraglottic Airway Properties Mask Ventilation: easy Type: supreme Tube Size: 4 Insertion Attempts: 1 Placement Verification: auscultation and CO2 detection Assessment Assessment: atraumatic and dentition unchanged Airway Intervention: check minimal leak Cuff Volume: 8 Additional Notes PT Id'd, ASA monitors, Smooth IV induction, LMA placed without difficulty, BEBS, +ETCO2 Alessandra Garzon CRNA ANESTHESIA PX NOTE ORDERABLES F inal Result * XR MAMMO POST LOCALIZATION LT (08/31/2024 8:59 AM CDT) Anatomical Region Laterality Modality Breast Left Mammography Narrative 08/31/2024 2:17 PM CDT As a result of the Cures Act, medical imaging exams and procedure reports are released immediately into your electronic medical record. You may view this report before your referring provider. If you have questions, please contact your health care provider. LEFT BREAST POST-LOCALIZATION MAMMOGRAM MAGNETIC SEED PLACEMENT 08/31/2024 PLEASE SEE [id number] FOR REPORT OF LEFT MAGNETIC SEED LOCALIZATION OF SAME DAY. Shakira Christie MD MAMMO Final Res ult * NM INJ SENTINEL NODE BREAST LEFT (08/31/2024 8:50 AM CDT) Anatomical Region Laterality Modality Breast Left Ultrasound, Nucl ear Medicine, Other 08/31/2024 1:01 PM CDT Impressions 08/31/2024 2:17 PM CDT Injection for sentinel lymph node of the LEFT breast. Dictated by: Mary Beth Del Valle MD @08/31/2024 1:01:34 PM /sp Narrative 08/31/2024 2:17 PM CDT For Patients: As a result of the Cures Act, medical imaging exams and procedure reports are released immediately into your electronic medical record. You may view this report before your referring provider. If you have questions, please contact your health care provider. RADIONUCLIDE SENTINEL LYMPH NODE LOCALIZATION PROCEDURE FOR LEFT BREAST 08/31/2024 INDICATION: LEFT breast cancer undergoing preoperative sentinel lymph node injection. LATERALITY: LEFT. TECHNIQUE: With the patient supine, the periareolar LEFT breast was cleansed with alcohol. 524 microcuries of technetium-99m Tilmanocept in a volume of 0.5 mL was injected intradermally in the periareolar breast with a 25 gauge needle. The patient tolerated the procedure well and there were no immediate complications. us Shakira Christie MD NM Final Res ult * US BREAST MAGNETIC SEED LOCALIZATION LEFT (08/31/2024 8:47 AM CDT) Anatomical Region Laterality Modality Breast Left Ultrasound, Othe r 08/31/2024 1:00 PM CDT Impressions 08/31/2024 2:17 PM CDT Successful breast magnetic seed localization. ACR not applicable. Dictated by: Mary Beth Del Valle MD @08/31/2024 1:00:05 PM /sp Narrative 08/31/2024 2:17 PM CDT For Patients: As a result [...] the patient and a consent was signed. [place] Protocol was followed including pre-procedure verification that [...] TO LESION: On target within the mass. us Shakira Christie MD US Final Res ult * SCAN-RADIOLOGY REPORT (08/29/2024 12:00 AM CDT) Anatomical Region Laterality Modality Other us Scanner OTHER Final Result * HEMOGLOBIN A1C (08/23/2024 11:59 AM CDT) HEMOGLOBIN A1C 5.5 <5.7 % [facility] Comment: For the purpose of screening for the presence of diabetes: <5.7% Consistent with the absence of diabetes 5.7-6.4% Consistent with increased risk for diabetes (prediabetes) > or =6.5% Consistent with diabetes This assay result is consistent with a decreased risk of diabetes. Currently, no consensus exists regarding use of hemoglobin A1c for diagnosis of diabetes in children. According to [place] Diabetes Association (ADA) guidelines, hemoglobin A1c <7.0% represents optimal control in non- diabetic patients. Different metrics may apply to specific patient populations. Standards of Medical Care in Diabetes(ADA). Blood BLOOD SPECIMEN / Unknown 08/23/2024 11:59 AM CDT 08/23/2024 12:00 PM CDT Narrative [facility] - 08/24/2024 4:59 AM CDT FASTING:NO FASTING: NO Velma RICARDO CHEMISTRY Final Resu lt [employer] [facility] [address] [place] [address], [facility] [facility] [address] [place] [address] * LIPID PANEL W REFLEX MEASURED LDL (08/23/2024 11:59 AM CDT) CHOLESTEROL, TOTAL 178 <200 mg/dL [facility] HDL CHOLESTEROL 67 > OR = 50 mg/dL [facility] TRIGLYCERIDES 108 <150 mg/dL [facility] LDL-CHOLESTEROL 91 mg/dL (calc) [facility] Comment: Reference range: <100 Desirable range <100 mg/dL for primary prevention; <70 mg/dL for patients with CHD or diabetic patients with > or = 2 CHD risk factors. LDL-C is now calculated using the Ankit-Archibald calculation, which is a validated novel method providing better accuracy than the Friedewald equation in the estimation of LDL-C. Ankit SS et al. MARVIN. 2013;310(19): 8691-3107 (http://education.Lookery/faq/PPB804) CHOL/HDLC RATIO 2.7 <5.0 (calc) Last [facility] NON HDL CHOLESTEROL 111 <130 mg/dL (calc) Last [facility] Comment: For patients with diabetes plus 1 major ASCVD risk factor, treating to a non-HDL-C goal of <100 mg/dL (LDL-C of <70 mg/dL) is considered a therapeutic option. Blood BLOOD SPECIMEN / Unknown 08/23/2024 11:59 AM CDT 08/23/2024 12:00 PM CDT Narrative [facility] - 08/24/2024 4:48 AM CDT FASTING:NO FASTING: NO Velma RICARDO CHEMISTRY Final Resu lt [employer] [facility] [address] [place] [address], [facility] [address] [place] [address] * COMP METABOLIC PANEL (08/23/2024 11:59 AM CDT) [facility] GLUCOSE 76 65 - 139 mg/dL [facility] Comment: Non-fasting reference interval UREA NITROGEN (BUN) 17 7 - 25 mg/dL Last [facility] CREATININE 0.90 0.60 - 1.00 mg/dL [facility] EGFR 67 > OR = 60 mL/min/1. 73m2 Last [facility] BUN/CREATININE RATIO SEE NOTE: 6 - 22 (calc) Last [facility] Comment: Not Reported: BUN and Creatinine are within reference range. SODIUM 142 135 - 146 mmol/L [facility] POTASSIUM 4.2 3.5 - 5.3 mmol/L Last [facility] CHLORIDE 105 98 - 110 mmol/L Last [facility] CARBON DIOXIDE 29 20 - [...] NO Velma RICARDO CHEMISTRY Final Resu lt [employer] [facility] [address] [place] [address], Last Guide[address] [address] * MR HEAD BRAIN WWO (08/18/2024 8:59 [...] provider. EXAM: MR HEAD BRAIN WWO LOCATION: [facility] DATE: 08/18/2024 INDICATION: Headache Syndrome [...] provider. EXAM: MR HEAD BRAIN WWO LOCATION: [facility] DATE: 08/18/2024 INDICATION: Headache Syndrome [...] result of the Century Cures Act, medical imagingexams and procedure reports [...] MD @ 08/05/2024 11:13:42 AM (Electronically Signed) Shakira Christie MD MR Final Res ult * (ABNORMAL) CREATININE (08/03/2024 11:16 AM CDT) eGFR 65(L) >90 mL/min/1.7 3m2 08/03/2024 11:55 AM CDT [facility] Comment:As of 2021, eG FR is calculated by the CKD-EPI creatinine equation without race adjustment. eGFR can be influenced by muscle mass, exercise, and diet. The reported eGFR is an estimation only and is only applicable if the renal function is stable. CREATININE 0.92(H) 0.50 - 0.90 mg/dL 08/03/2024 11:55 AM CDT [facility] Blood BLOOD SPECIMEN / Unknown Venipuncture / Unknown 08/03/2024 11:16 AM CDT 08/03/2024 11:22 AM CDT Shakira Christie MD CHEMISTRY Final Res ult [facility] [address] [place] [address], * MR BREAST CAD WWO BILATERAL (08/02/2024 [...] plane. Image post-processing was performed on a Zapstitch workstation. Complex 3D rendering including maximum intensity [...] liver MR without and with contrast. BI-RADS: 1-ifrbwd-itebml malignancy Dictated by: Deonna Montesinos MD @08/02/2024 11:05:14 AM CRL/djw us Shakira Christie MD MR Final Res ult * COLONOSCOPY (11/03/2023 11:54 AM CDT) 11/03/2023 11:5 4 AM CDT Narrative Transcriptions Juan Estrada MD - 11/03/2023 12:44 PM CDT [facility] Patient Name: Bell Foreman Procedure Date: 11/03/2023 Gender: Female Date of : 1950 Admit Type: Ambulatory Procedure: Colonoscopy Proceduralist: Juan Frazier MD - [facility] Referring MD: Juan Frazier MD Indications/Pre-Op Diagnosis: Therapeutic procedure for known colonadenoma Medications: Monitored Anesthesia Care Procedure Description: The patient had risks, benefits and alternatives explained to andgave informed consent. The patient had a stable cardiopulmonary status and judged an adequate candidate for sedation. The endoscope [id number] was passed through the anus andadvanced to [...] For Patients: Results are automatically released to [employer] ([employer]) account once available, in compliance with federal regulations. This means that you may see your results before your provider has had a chance to review them. Please allow 2-3 business days for your provider to comment on the results. XR DXA Bone Mineral Density (BMD) EXAM LOCATION: [id number] [address] PATIENT NAME: Bell Foreman DATE OF : [...] two scanners are made by the same clip and hanger attacher. PROCEDURE: Dual-energy x-ray absorptiometry performed with routine [...] 11.6%. 10-year probability of hip fracture: 2.4%. us Boris Sousa MD DEXA Final Re sult * ANTI HCV (06/13/2020 2:29 PM CDT) HEPATITIS C ANTIBODY Non-React chris Non-React chris 06/13/2020 8:09 PM CDT [facility] Comment:Antibodies to HCV no t detected; does not exclude the possibility of exposure to HCV. Blood BLOOD SPECIMEN / Unknown Venipuncture / Unknown 06/13/2020 2:29 PM CDT 06/13/2020 2:31 PM CDT us Geena Sheets DO SEND OUTS Final Result [facility] [address] [place] [address], [place] from Last 3 Months or Most Recently Relevant to Health Maintenance Insurance MEDICARE PART A HB ONLY MEDICARE PART B HB [place] [address] * Guarantor: [facility] [employer] Account Type Relation to Patient Date of Phone Billing Address Contract 2007 [address] [place] [address] Advance Directives * Full Code (Latest Code Status on File) Date Activated Date Inactivated Comments 09/28/2024 11:22 AM 09/28/2024 4:25 PM Question Answer Comments Code Status Discussion: Unable to Assess Preferences, Provider to review later * Full Code Date Activated Date Inactivated Comments 08/31/2024 9:08 AM 08/31/2024 6:58 PM Question Answer Comments Code Status Discussion: Reviewed Preferences * Full Code Date Activated Date Inactivated Comments 11/03/2023 11:48 AM 11/03/2023 3:51 PM Question Answer Comments Code Status Discussion: Unable to Assess Preferences, Provider to review later * Full Code Date Activated Date Inactivated Comments 07/17/2023 1:38 PM 07/18/2023 2:16 PM Question Answer Comments Code Status Discussion: Reviewed Preferences * Full Code Date Activated Date Inactivated Comments 08/18/2019 10:39 AM 08/18/2019 2:24 PM Care Teams Ophthalmic Technician Relationship Specialty Start Date End Date Velma Sosa PA [address] [place] [address] PCP - General Physician Rubber Goods Finisher 03/11/24 Maria T Quintero, RN [address] [place] [address] Nurse Navigator - Oncology Registered Nurse 02/09/24 Jessie Trevizo, RN [address] [place] [address] Nurse Navigator - Oncology Registered Nurse 07/27/24 Shakira Christie MD [address] [place] [address] Surgery - General 07/27/24
--- OUTSIDE RECORDS SUMMARY | 2024-10-30 06:43 | XMS_ITS | Encounter Summary ---
Author Organization [facility] Address [address] [place] [address] Care Team Providers Care Visitor Use Assistant Name Role Phone Velma Sosa PA-C Primary Care Provider [phone] Encounter Details Date Type Department Care Team (Late st Contact Info) Description 03/25/2024 [facility] Medical Advice [facility] [address] 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
--- OUTSIDE RECORDS SUMMARY | 2024-10-30 06:43 | XMS_ITS | Encounter Summary ---
Author Organization [facility] Address [address] [place] [address] Care Team Providers Care Bb Shot Packer Name Role Phone Velma Sosa PA-C Primary Care Provider [phone] Encounter Details Date Type Department Care Team (Late st Contact Info) Description 01/13/2024 Orders Only [facility] [address] [place] [address] Jan Conway PA-C [facility] [address] [place] [address] Postoperative abdominal pain (Primary Dx) Social [...] in an abandoned building, in an overnight chcf, or couch-surfing.) Yes 01/15/2024 Are you worried [...] on file Legal 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
--- OUTSIDE RECORDS SUMMARY | 2024-10-30 06:43 | XMS_ITS | Clinical Summary ---
Author Organization [facility] Address [address] [place] [address] Care Team Providers Care Landscape Architect And Planner Name Role Phone Velma Sosa PA-C Primary Care Provider [phone] Allergies Active Allergy Reactions Criticality Noted Date Comments Adhesive Tape Rash Low 10/30/2023 Aspirin Hives High 12/23/2004 Tolerated Aspirin on 06/12/2018 without difficulty. No hives. [place] Hives High 12/23/2004 Naproxen Hives High 12/23/2004 [...] Take 2 tablets by mouth daily. Active bnjtde-avgicnez-d mylase (CREON 24) [id number] 0 units CPEP per EC capsule Take 2 capsules by mouth 3 times daily (with meals). Active fexofenadine (GALILAE) 60 MG tablet Take 60 mg by mouth daily. Active Lactobacillus Acidophilus (ACIDOPHILUS LACTOBACILLUS) 10 BETH UNT/GM POWD 1 tablet daily. Active znvdvg-axyhhzkl-d mylase (CREON 24) [id number] 0 units CPEP per EC capsule Take [...] in an abandoned building, in an overnight nursing home, or couch-surfing.) Yes 01/15/2024 Are you worried [...] on file Legal Sex Female 3:36 AM PERFORATOR OPERATOR Gender Identity Not on file Sexual Orientation Not on file Last Filed Vital Signs Vital Sign Reading Time Taken Comments Blood Pressure 129/70 01/22/2024 7:54 AM PERFORATOR OPERATOR Pulse 73 01/22/2024 7:54 AM PERFORATOR OPERATOR Temperature 36.8 C (98.2 F) 01/22/2024 7:54 AM PERFORATOR OPERATOR Respiratory Rate 16 01/22/2024 7:54 AM PERFORATOR OPERATOR Oxygen Saturation 99% 01/22/2024 7:54 AM PERFORATOR OPERATOR Inhaled Oxygen Concentration - - Weight 86 kg (189 lb 9.6 oz) 01/17/2024 3:48 AM PERFORATOR OPERATOR Height 177.8 cm (5' 10) 01/15/2024 5:04 PM PERFORATOR OPERATOR Body Mass Index 27.2 01/15/2024 5:04 PM PERFORATOR OPERATOR Plan of Treatment Health Maintenance Due Date Last Done Comments ADVANCE CARE PLANNING 1950 ANNUAL REVIEW OF HM ORDERS 1949 CT COLONOGRAPHY 1949 FIT 1949 FLEX SIG 1949 sDNA (Cologuard) 1949 LIPID 1989 FALL RISK ASSESSMENT 2014 MEDICARE ANNUAL WELLNESS VISIT 01/22/2024 01/21/2023, 01/22/2022, 01/21/2021 PHQ-2 (once per calendar year) 2024 COVID-19 VACCINE ( season) 2024 12/10/2023, 12/10/2022, 09/23/2022, Additional history exists INFLUENZA VACCINE (#1) 2024 , 12/02/2022, 01/10/2022, Additional history exists DTAP/TDAP/TD VACCINE (2 - Td or Tdap) 04/15/2026 04/15/2016, 01/01/2006 DIABETES SCREENING 01/15/2027 01/16/2024, 1 03/16/2023, 01/13/2024, Additional history exists COLONOSCOPY 11/02/2033 11/03/2023 COLORECTAL CANCER SCREENING 11/02/2033 DEXA 08/07/2037 08/07/2022 PNEUMOCOCCAL VACCINE 50+ YEARS Completed 01/21/2021, 02/14/2015, 12/21/2013, Additional history exists ZOSTER VACCINE Completed 09/23/2022, 01/08, 04/15/2016 RSV VACCINE Completed 12/02/2022 HEPATITIS C SCREENING Completed 01/18/2024, 021 MAMMO SCREENING Discontinued 07/14/2024, 06/08, 07/04/2024, Additional history exists HPV VACCINE (No Doses Required) Completed MENINGITIS VACCINE Aged Out No longer eligible based on patient's age to complete this topic Goals Goal Patient Goal Type Associated Problems Recent Progress Patient-Stated? Author MYC ECC SURG ENROLL Care Plan MyC ECC SURG ENROLL No Yaneth Le Procedures Procedure Name Priority Date/Time Associated Diagnosis Comments HEPATITIS C ANTIBODY Add-On 01/18/2024 6:21 AM PERFORATOR OPERATOR COMPREHENSIVE METABOLIC PANEL Routine 01/16/2024 7:37 AM PERFORATOR OPERATOR from Last 3 Months or Most Recently Relevant to Health Maintenance Results * Hepatitis C antibody (01/18/2024 6:21 AM [facility]) Hepatitis C Antibody Nonreactive Nonreactive 01/18/2024 5:04 PM PERFORATOR OPERATOR [facility] Comment:A nonreactive screen ing [...] Unknown Venipuncture / Unknown 01/18/2024 6:21 AM PERFORATOR OPERATOR 01/18/2024 6:28 AM [facility] Tashia Davis PA-C LAB - BLOOD ORDERAB LES Final Result LABORATORY [facility] [place] [facility] [address] [facility], Room [address] [place], [place] [id number] * (ABNORMAL) Comprehensive metabolic panel (01/16/2024 7:37 AM [facility]) Pathologist [facility] Sodium 136 135 - 145 mmol/L 01/16/2024 8:14 AM [facility] Potassium 4.6 3.4 - 5.3 mmol/L 01/16/2024 8:14 AM [facility] Carbon Dioxide (CO2) 24 22 - 29 mmol/L 01/16/2024 8:14 AM [facility] Anion Gap 11 7 - 15 mmol/L 01/16/2024 8:14 AM [facility] Urea Nitrogen 10.7 8.0 - 23.0 mg/dL 01/16/2024 8:14 AM [facility] Creatinine 1.01(H) 0.51 - 0.95 mg/dL 01/16/2024 8:14 AM [facility] GFR Estimate 58(L) >60 mL/min/1.7 3m2 01/16/2024 8:14 AM [facility] Comment:eGFR calculated usin 2020 CKD-EPI equation. Calcium 8.7(L) 8.8 - 10.4 mg/dL 01/16/2024 8:14 AM PERFORATOR OPERATOR [facility] Comment:Reference intervals for this test were updated on 09/22/2023 to reflect our healthy population more accurately. There may be differences in the flagging of prior results with similar values performed with this method. Those prior results can be interpreted in the context of the updated reference intervals. Chloride 101 98 - 107 mmol/L 01/16/2024 8:14 AM PERFORATOR OPERATOR [facility] Glucose 94 70 - 99 mg/dL 01/16/2024 8:14 AM PERFORATOR OPERATOR [facility] Alkaline Phosphatase 242(H) 40 - 150 U/L 01/16/2024 8:14 AM PERFORATOR OPERATOR [facility] AST 47(H) 0 - 45 U/L 01/16/2024 8:14 AM PERFORATOR OPERATOR [facility] ALT 42 0 - 50 U/L 01/16/2024 8:14 AM PERFORATOR OPERATOR [facility] Protein Total 6.3(L) 6.4 - 8.3 g/dL 01/16/2024 8:14 AM PERFORATOR OPERATOR [facility] Albumin 3.0(L) 3.5 - 5.2 g/dL 01/16/2024 8:14 AM PERFORATOR OPERATOR [facility] Bilirubin Total 0.2 <=1.2 mg/dL 01/16/2024 8:14 AM PERFORATOR OPERATOR [facility] Blood STRUCTURE OF RIGHT UPPER LIMB / Unknown Venipuncture / Unknown 01/16/2024 7:37 AM PERFORATOR OPERATOR 01/16/2024 7:51 AM PERFORATOR OPERATOR [facility] Aissatou Mccarthy PA-C LAB - BLOOD ORDERABLES Fin al Result [facility] [address] Lab (1st floor, no room number) [place] [address], [facility] from Last 3 Months or Most Recently Relevant to Health Maintenance Additional Health Concerns Active Problems Noted Date Diagnosed Date MyC ECC SURG ENROLL 12/17/2023 Insurance MEDICARE / [place] [address] MEDICARE / [place] [address] Advance Directives For more information, please contact: [phone] * Full Code (Latest Code Status on File) Date Activated Date Inactivated Comments 01/15/2024 4:13 PM 01/22/2024 5:05 PM All basic a nd advanced life-sustaining interventions are performed as appropriate Question Answer Comments Code status determined by: Discussion with patie nt/ legal decision maker * Full Code Date Activated Date Inactivated Comments 12/23/2023 12:32 PM 12/25/2023 3:14 PM All basic and advanced life-sustaining interventions are performed as appropriate Question Answer Comments Code status determined by: Discussion with patie nt/ legal decision maker Care Teams Landscape Architect And Planner Relationship Specialty Start Date End Date Velma Sosa PA-C [address] [place] [address] PCP - General 11/20/23
[2024-10-30 06:51] VITALS: BP 165/85; PULSE 89; RESP 18; TEMP 36.8; O2SAT 99; BMI 28.8
--- NOTE | 2024-10-30 07:10 | ED.GENADULT ---
HPI - General Adult General Chief complaint: Anxiety Stated complaint: Anxiety Time Seen by Provider: 10/30/24 07:10 History of Present Illness HPI narrative: CC: Anxiety pt. dealing with multiple stressors such as breast cancer. having racing thoughts. denies HI/SI. denies chest pain. h/o a?fib. would like to have ekg done. 74-year-old woman presenting to the emergency department following which she describes as I panicked. But 2 months ago was diagnosed via biopsy with breast cancer. She notes she also has the BRCA1 gene. This is following resection colon cancer; sounds to have been successfully treated. Mother apparently in her early 20s with breast cancer following mastectomy. Bell has struggled with anxiety and it is now worse. She wants to be looked in the eye and told that everything is okay and inform all of her family members of the same. Has been having trouble sleeping for this reason. Did tried THC gummy but made her more anxious. History also of bipolar disorder. Uncertain if this might be flaring. Did see therapist recently that she has seen for some time. Anticipates seeing her again but has not scheduled this yet. Was worried today off of that might be back in atrial fibrillation. She is anticoagulated with apixaban apparently. She did have radiation for this breast cancer and with current treatment with apparently recommended to discontinue Neurontin. She is able to acknowledge that she does have a good plan in place. Related Data Home Medications ?Medication ?Instructions ?Recorded ?Confirmed calcium carbonate 1,500 mg PO DAILY 07/10/22 10/30/24 cholecalciferol (vitamin D3) 10 500 unit PO DAILY 07/10/22 10/30/24 mcg/mL (400 unit/mL) oral drops cyanocobalamin (vitamin B-12) 3,000 mcg PO QDAY 07/10/22 10/30/24 3,000 mcg capsule gabapentin 300 mg capsule 300 mg PO QDAY 07/10/22 10/30/24 multivitamin (Multiple Vitamins 1 tab PO QDAY 07/10/22 10/30/24 tablet) omega 4-kkd-qkj-fish oil 1,000 mg 1 cap PO QDAY 07/10/22 10/30/24 (120 mg-180 mg) capsule (Fish Oil) apixaban 5 mg tablet (Eliquis) 5 mg PO BID 12/27/23 10/30/24 Previous Rx's ?Medication ?Instructions ?Recorded hydroxyzine HCl 25 mg tablet 25 mg PO TID PRN itching #14 tabs 12/27/23 Allergies Allergy/AdvReac Type Severity Reaction Status Date / Time lithium Allergy Unknown Verified 10/30/24 06:53 naproxen Allergy Unknown Hives Verified 10/30/24 06:53 colchicine Allergy Hives Verified 10/30/24 06:53 Aspirin Allergy Unknown Uncoded 06/29/24 18:10 Review of Systems Status of ROS: Reports: 6 or more systems reviewed and unremarkable except as noted in History and below [facility] Social History Smoking Status: Never smoker Second hand tobacco smoke exposure: No How often do you have a drink containing alcohol: never AUDIT-C Alcohol total score: 0 Non-prescribed substance use: denies use Exam Narrative: Exam Narrative: Very pleasant. Makes good eye contact. Is thoughtful, introspective. Speech isn't pressured nor slurred. Cranial nerves 2-12 are intact. Heart in regular rate and rhythm. Extremities are well perfused without edema. No evidence of self-harm. Const: Vital Signs, click to edit/add: Vital Signs - 24 hr 10/30/24 06:51 Temperature 98.2 F Pulse Rate [Right Pulse Oximeter] 89 Respiratory Rate 18 Blood Pressure [Ri ght Upper Arm] 165/85 H Pulse Oximetry 99 Oxygen Delivery Me thod Room Air Documenting provider has reviewed patient's vital signs: yes Course Vital Signs Vital signs: Initial Vital Signs Respiratory Effort Normal, Spontaneous, Non-Labored 10/30/24 06:40 Respiratory Depth Normal 10/30/24 06:40 Respiratory Pattern Normal 10/30/24 06:40 Vital Signs Temperature 98.2 F 10/30/24 06:51 Pulse Rate 89 10/30/24 06:51 Respiratory Rate 18 10/30/24 06:51 Blood Pressure 165/85 H 10/30/24 06:51 Pulse Oximetry 99 10/30/24 06:51 Oxygen Delivery Method Room Air 10/30/24 06:51 Temperature 98.2 F 10/30/24 06:51 Pulse Rate 89 10/30/24 06:51 Respiratory Rate 18 10/30/24 06:51 Blood Pressure 165/85 H 10/30/24 06:51 Pulse Oximetry 99 10/30/24 06:51 Oxygen Delivery Method Room Air 10/30/24 06:51 Medications Administered Medications: Discontinued Medications Generic Name Dose Route Start Last Admin Trade Name Blayne PRN Reason Stop Dose Admin Acetaminophen 1,000 mg 10/30/24 07:28 10/30/24 08:04 Acetaminophen 500 Mg Tablet PO 10/30/24 07:29 1,000 mg ONCE ONE Administration Medical Decision Making MDM Narrative Medical decision making narrative: Does appear to be struggling with exacerbation of anxiety. We did do an EKG here. Reviewed by me shows normal sinus rhythm at a rate of 80. Lower voltage generally. Discussed potential temporary treatments that might be beneficial. Would encourage outdoor activity. Should reschedule with therapist. Offered reassurance regarding her cancer diagnosis and treatment. Can give temporary treatment with lorazepam; she is familiar and apparently has tolerated this well in the past. No exacerbation of events during time in the emergency department. Did encourage her to reach out to her daughter who apparently is in route from [place] for visit. With some degree of restlessness she was ambulating about the emergency department, calmly. See patient discharge plan for further discussion Yes, I do think some physical activity would be good for you on a number of levels. See if you can spend some time [id number] with friends or family today. Please send a message, call your therapist to arrange appointment this next week if possible. I would also schedule with your primary care provider to review if some other medical management is also indicated in the short term. In the meantime as discussed, prescribing some Ativan (lorazepam) for you from [facility]. As you know this can be sedating. Medical Records Medical records reviewed: Yes I reviewed the patient's medical records Lab Data Lab results reviewed: Yes I reviewed the patient's lab results Discharge Plan Discharge Clinical Impression: Anxiety Patient Disposition: Home, Self-Care Condition: Improved Additional Instructions: Yes, I do think some physical activity would be good for you on a number of levels. See if you can spend some time [id number] with friends or family today. Please send a message, call your therapist to arrange appointment this next week if possible. I would also schedule with your primary care provider to review if some other medical management is also indicated in the short term. In the meantime as discussed, prescribing some Ativan (lorazepam) for you from [facility]. As you know this can be sedating. Prescriptions: No Action cholecalciferol (vitamin D3) 10 mcg/mL (400 unit/mL) drops 500 unit PO DAILY calcium carbonate 500 mg calcium (1,250 mg) tablet 1,500 mg PO DAILY multivitamin [Multiple Vitamins] Tablet 1 tab PO QDAY gabapentin 300 mg capsule 300 mg PO QDAY omega 6-jzp-tvc-fish oil [Fish Oil] 1,000 mg (120 mg-180 mg) capsule 1 cap PO QDAY cyanocobalamin (vitamin B-12) 3,000 mcg capsule 3,000 mcg PO QDAY Eliquis 5 mg tablet 5 mg PO BID hydroxyzine HCl 25 mg tablet 25 mg PO TID PRN (Reason: itching) Qty: 14 0RF Follow Up/Referrals: Velma Sosa PA-C [Primary Care Provider, Family Practice] Stand Alone Forms: [facility] Info Instructions
[2024-10-30] MEDS: ACETAMINOPHEN 500 MG TABLET 1000 MG PO (08:04)
== END 2024-10-30 09:06 | disposition home or self-care (01) ==
PROVIDERS: Emergency Provider Family Medicine; PCP Physician Assistant
DX: F41.9 Anxiety disorder, unspecified (principal)
CPT/HCPCS: 93005; 99284; A9270

== ENCOUNTER 2024-12-14 07:12 | Outpatient (CLI) | payer MEDICARE, OTHER, SELFPAY | END 2024-12-14 07:13 | disposition home or self-care (01) | LOC: AMB 12-19 09:24 | PROVIDERS: PCP Physician Assistant; Visit Provider Emergency Medicine | DX: R41.82 Altered mental status, unspecified (principal) | CPT/HCPCS: A0425; A0429 ==

== ENCOUNTER 2024-12-14 07:42 | Emergency (ER) | payer MEDICARE, OTHER, SELFPAY ==
[2024-12-14 08:00] VITALS: BP 145/80; PULSE 76; RESP 16; TEMP 37; O2SAT 97; BMI 26.1
--- NOTE | 2024-12-14 08:04 | ED.GENADULT ---
HPI - General Adult General Date Seen: 12/14/24 Chief complaint: Psychiatric Problem/Disorder Stated complaint: mental health Time Seen by Provider: 12/14/24 08:03 History of Present Illness HPI narrative: 74 yo F with a recent diagnosis of breast cancer, a visit to the ER in October with anxiety. Per records from [facility] she also has a history of paroxysmal AFib of, abdominal pannus with history of panniculitis, high cholesterol, morbid obesity, gastric bypass, type 2 diabetes (diet controlled), colon cancer, esophageal dysmotility, colon polyps, iron deficiency anemia, chronic low back pain, meningioma, shoulder tendinitis, major neurocognitive disorder due to multiple etiologies, macromastia anxiety, bipolar, janine, intermittent asthma, chronic kidney disease, History obtained from police captain precinct brought her to the ER today is that she dated put her on a transport hold for janine with delusions. They report is that she was recently hospitalized at a inpatient psych unit in the [facility] (probably [facility] in [place]) and was discharged about 5 days ago. She has apparently been off her meds. Report we get from the police officers and from the patient's son over the phone is that when she got home from the hospital she found her apartment in disarray. She was paranoid that someone had tried verbalized her apartment and did not feel safe there. Her son agreed to get her hotel room for the night while he cleaned upper apartment. However she apparently disappeared from the hotel and her son has not been able to find her for the past 5 days. Additional history was that she also apparently went to a checkup with the [facility] clinic up couple of days ago and was behaving in a manic phase but not overly holdable. Her son believe she has not been taking her prescribed psychiatric medications. Police officers note that she seemed delusional and was talking about riding around with Lalo and Lo Bruner as well as with the children of senator Joshua Ochoa. The patient is able to tell me that she is a [employer] and recently got out of [place]. She is also able to tell me that her about 10 years ago. She is not able to really reconcile a time for him on that. She also tells me that she has been living at the [facility] 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 Per patient she has been feeling well lately. She has been right around in cars with the children of senator Joshua Ochoa. She has no complaints. She is not able to tell me if she has been taking her meds. She is it is able to tell me that she has a history of breast cancer and had radiation but that her previous breast rash (sounds like skin radiation burn) is not resolved., she is able to tell me that there was no spread of the cancer into her lymph nodes are outside the breast. She is not currently on chemo. She is very tangential with her history. She is also able to tell me that she has a history of breast cancer twice. She recently had a lumpectomy and radiation. She says the cancer was not metastatic and not in her lymph nodes. She had had some redness of the skin on her left breast after radiation but that is now gone. She has no known brain Mets. Per the [facility] medical record she was hospitalized 11/19-12/06 to the psychiatry service. She was admitted for stabilization of a manic episode. She was very talkative with tangential speech. She was started on Zyprexa 1.25 mg q.h.s. along with Ativan p.r.n. for anxiety. In the hospital her dose of Zyprexa was increased up to 7.5 mg q.h.s.. Depakote was added to help with mood stabilization. Depakote increased gradually up to 500 b.i.d.. Depakote level was 57 on 12/05. She did fall while in the hospital on 11/19 and had a workup including head CT, C-spine CT and hip x-ray that were negative. Related Data Home Medications ?Medication ?Instructions ?Recorded ?Confirmed calcium carbonate 1,500 mg PO DAILY 07/10/22 10/30/24 cholecalciferol (vitamin D3) 10 500 unit PO DAILY 07/10/22 10/30/24 mcg/mL (400 unit/mL) oral drops cyanocobalamin (vitamin B-12) 3,000 mcg PO QDAY 07/10/22 10/30/24 3,000 mcg capsule gabapentin 300 mg capsule 300 mg PO QDAY 07/10/22 10/30/24 multivitamin (Multiple Vitamins 1 tab PO QDAY 07/10/22 10/30/24 tablet) omega 4-bsv-sjc-fish oil 1,000 mg 1 cap PO QDAY 07/10/22 10/30/24 (120 mg-180 mg) capsule (Fish Oil) apixaban 5 mg tablet (Eliquis) 5 mg PO BID 12/27/23 12/14/24 Previous Rx's ?Medication ?Instructions ?Recorded hydroxyzine HCl 25 mg tablet 25 mg PO TID PRN itching #14 tabs 12/27/23 Allergies Allergy/AdvReac Type Severity Reaction Status Date / Time lithium Allergy Unknown Verified 10/30/24 06:53 naproxen Allergy Unknown Hives Verified 10/30/24 06:53 colchicine Allergy Hives Verified 10/30/24 06:53 Aspirin Allergy Unknown Uncoded 06/29/24 18:10 [facility] Social History Smoking Status: Never smoker Second hand tobacco smoke exposure: No How often do you have a drink containing alcohol: never AUDIT-C Alcohol total score: 0 Non-prescribed substance use: denies use Exam Narrative: Exam Narrative: Constitutional: Appears well-developed and well-nourished. Alert. Conversant. Non toxic. HENT: Head: Atraumatic. No depressed skull fracture, Raccoon Eyes, Baca's sign, or hemotympanum. Face normal. TMs normal Nose: Nose normal. Mouth/Throat: Oral mucosa is clear and moist. no trismus. Pharynx normal. Tonsils symmetric. No tonsillar enlargement, erythema, or exudate. Eyes: Conjunctivae normal. EOM normal. Pupils equal, round, and reactive to light. No scleral icterus. Neck: Normal range of motion. Neck supple. No tracheal deviation present. Cardiovascular: Normal rate, regular rhythm. No gallop. No friction rub. No murmur heard. Symmetric radial artery pulses Pulmonary/Chest: Effort normal. No stridor. No respiratory distress. No wheezes. No rales. No rhonchi . No tenderness. Abdominal: Soft. Bowel sounds normal. No distension. No mass. No tenderness. No rebound. No guarding. Musculoskeletal: RUE: Normal range of motion. No tenderness. No deformity LUE: Normal range of motion. No tenderness. No deformity RLE: Normal range of motion. No edema. No tenderness. No deformity LLE: Normal range of motion. No edema. No tenderness. No deformity Neurological: Alert and oriented to person, place, and time. Normal strength. CN II-VII intact. No sensory deficit. GCS eye subscore is 4. GCS verbal subscore is 5. GCS motor subscore is 6. Normal coordination Skin: She has a healed linear incision on the upper portion of her left breast from what I think is a lumpectomy. There is no signs of any skin redness or desquamation or blistering or rash in that area. No palpable masses. Skin is warm and dry. No rash noted. No pallor. Normal capillary refill. Psychiatric: The she is very smiling and alert and positive. Speech is rapid. Thoughts are very 10 gentle. When were talking she talks briefly about being a [employer] and getting out of [place]. She then talks about riding with the [employer] family. She is not able to tell me what meds she is on. She seems delusional. She is not aggressive or angry. She is not depressed. She says she is not feeling suicidal. Const: Vital Signs, click to edit/add: Vital Signs - 24 hr 12/14/24 08:00 12/14/24 14:53 Temperature 98.6 F 97.6 F Pulse Rate [Pulse Oximeter] 76 78 Respiratory Rate 16 18 Blood Pressure [Ri ght Upper Arm] 145/80 H 153/82 H Pulse Oximetry 97 99 Oxygen Delivery Me thod Room Air Room Air Course Course ED Course: Return recheck-patient having increasing grandiose behavior and more activity. She has been out of her he broom to the ER nurses station multiple times. Will order some Zyprexa (was on this while in the hospital per notes) to help keep her calm. She is not aggressive or agitated. Reevaluation(s) Reevaluation #1: Recheck-Tylenol because she has mild body aches and headache. No signs of infection. Vital Signs Vital signs: Initial Vital Signs Temperature 98.6 F 12/14/24 08:00 Temperature Source Temporal Artery Scan 12/14/24 08:00 Pulse Rate 76 12/14/24 08:00 Respiratory Rate 16 12/14/24 08:00 Blood Pressure 145/80 H 1008/25 08:00 Blood Pressure Mean 101 12/14/24 08:00 Blood Pressure Position Supine 12/14/24 08:00 Pulse Oximetry 97 12/14/24 08:00 Oxygen Delivery Method Room Air 12/14/24 08:00 Vital Signs Temperature 98.6 F 12/14/24 08:00 Pulse Rate 76 12/14/24 08:00 Respiratory Rate 16 12/14/24 08:00 Blood Pressure 145/80 H 12/14/24 08:00 Pulse Oximetry 97 12/14/24 08:00 Oxygen Delivery Method Room Air 12/14/24 08:00 Temperature 97.6 F 12/14/24 14:53 Pulse Rate 78 12/14/24 14:53 Respiratory Rate 18 12/14/24 14:53 Blood Pressure 153/82 H 12/14/24 14:53 Pulse Oximetry 99 12/14/24 14:53 Oxygen Delivery Method Room Air 12/14/24 14:53 Medications Administered Medications: Discontinued Medications Generic Name Dose Route Start Last Admin Trade Name Blayne PRN Reason Stop Dose Admin Acetaminophen 1,000 mg 12/14/24 16:02 12/14/24 16:15 Acetaminophen 500 Mg Tablet PO 12/14/24 16:03 1,000 mg ONCE ONE Administration Olanzapine 5 mg 12/14/24 12:14 12/14/24 12:42 Olanzapine 5 Mg Tab.Rapdis PO 12/14/24 12:15 5 mg ONCE ONE Administration Medical Decision Making MDM Narrative Medical decision making narrative: 74-year-old female with history of bipolar disorder and recent hospitalization for janine. Also has a history of AFib and a history of breast cancer with recent radiation treatment in lung lobectomy. She is brought to the ER this morning by police on a transport hold. She had apparently has been manic, off her meds, and not in contact with her family for the past 5 days. She was just discharged from the hospital 7 or 8 days ago. She came with the police but was not aggressive or agitated or violent. She was on a transport hold but now that she is here in the ER she is undergoing evaluation voluntarily. She clearly is manic. She is hyper verbal, very active, high mood, also delusional. She is talking about riding around in cars with political figures. She also is very 10 gentle with her thoughts. At time she is talking about being 34 years old and getting out of the [employer] and another time she is talking about being 74 years old. She is not endorsing any suicidal or homicidal ideation. However she clearly is manic and requires inpatient care since she is off her meds, delusional, not caring for herself. She was evaluated by the nurse, reymundo Gerard from [facility]. She agrees that the patient meets criteria for inpatient and we are looking for placement. At this time the patient is voluntarily undergoing workup here in the ER and will continue to pursue a psychiatric admission on a voluntary basis. However, I do think the patient is gravely impaired by her mental illness and does meet criteria for 72 hour hold. Therefore if she were to change in become involuntary, I will place her on a hold. She is voluntary but holdable. From a medical standpoint we did pursue laboratory workup to look for infectious or metabolic causes of her altered sensorium and delusions. Urinalysis is normal. Thyroid studies are normal. Alcohol is undetectable. COVID negative. Drug screen is positive for benzos (but she was given Ativan in the hospital and was prescribed Ativan). Tylenol and salicylate levels are undetectable and she denies any suicidal thought and I have no specific suspicion that she would have overdosed. She has no report of fall and no overt signs of head trauma but since she is a stents doubly on Eliquis, consider a spontaneous intracranial hemorrhage. Noncontrast head CT is obtained and is normal. She has history of AFib. EKG this morning confirms sinus rhythm (sinus bradycardia). At this point, with reasonable clinical confidence, I think the patient is medically clear for an inpatient psychiatric admission. At this point the patient has been turned down for admission at multiple facilities because they do not have capacity. We continue to look for open mental health beds. Signed out to my partner, Dr. Miller. Lab Data Labs: Lab Results 12/14/24 12/14/24 12/14/24 Range/Units 07:57 07:59 08:40 WBC 4.02 L (4.50-11.00) K/uL RBC 4.24 (4.00-5.20) m/uL Hgb 12.4 (12.0-16.0) gm/dL Hct 38.7 (33.0-51.0) % MCV 91 (80-100) fL MCH 29 (26-34) pg MCHC 32 (32-36) gm/dL RDW Coeff of Zee 13.7 (11.5-15.5) % Plt Count 309 (140-440) K/uL Neut % (Auto) 62.0 (42.0-72.0) % Lymph % (Auto) 23.9 (20-44) % [place] % (Auto) 11.7 H (0.0-11.0) % Eos % (Auto) 1.2 (0.0-7.0) % Baso % (Auto) 1.2 (0.0-3.0) % Neut # (Auto) 2.50 (1.7-7.0) K/uL Lymph # (Auto) 1.00 (0.90-2.90) K/uL [place] # (Auto) 0.50 (0.00-0.90) K/UL Eos # (Auto) 0.00 (0.00-0.50) K/uL Baso # (Auto) 0.00 (0.00-0.30) K/uL Abs Immat Gran (auto) 0.00 (0.00-0.30) K/uL Imm/Tot Granulo (auto) 0.0 % Sodium 138 (135-149) mmol/L Potassium 3.6 (3.6-5.1) mmol/L Chloride 102 (96-114) mmol/L Carbon Dioxide 32 (20-32) mmol/L Anion Gap 4 L (7-15) mEq/L BUN 18 (7-30) mg/dL Creatinine 1.0 (0.5-1.5) mg/dL Estimated Creat Clear 54.33 Estimated GFR 59 ml/min Glucose 105 (60-115) mg/dL Calcium 9.2 (8.4-10.6) mg/dL Total Bilirubin 0.5 (0.1-1.5) mg/dL AST 35 (12-35) U/L ALT 16 (4-35) U/L Alkaline Phosphatase 95 (40-150) U/L Total Protein 6.9 (6.0-8.3) g/dL Albumin 3.9 (3.3-5.0) g/dL TSH 1.320 (0.270-4.20) uIU/mL Urine Color Yellow (Yellow) Urine Appearance Clear (Clear) Urine pH 5.5 (5.0-8.5) Ur Specific [place] 1.025 (1.000-1.030) Urine Protein Negative (Negative) Urine Glucose (UA) Negative (Negative) Urine Ketones 1+ A (Negative) Urine Blood Negative (Negative) Urine Nitrite Negative (Negative) Urine Bilirubin 2+ A (Negative) Urine Urobilinogen 0.2 (0.2-1.0) Ur Leukocyte Esterase Negative (Negative) Urine RBC 0-2 (0-2) Urine WBC 0-2 (0-5) Ur Squamous Epith Cells Few (None-Few) Urine Bacteria Few A (None) Urine Mucus Few A (None) Salicylates < 1.0 L (1.0-10) mg/dL Urine Opiates Screen Negative (Negative) Ur Buprenorphine Scrn Negative (Negative) Ur Oxycodone Screen Negative (Negative) Urine Methadone Screen Negative (Negative) Acetaminophen < 10.0 (10.0-30.0) ug/mL Ur Barbiturates Screen Negative (Negative) U Tricyclic Antidepress Negative (Negative) Ur Phencyclidine Scrn Negative (Negative) Ur Amphetamines Screen Negative (Negative) U Methamphetamines Scrn Negative (Negative) U Benzodiazepines Scrn POSITIVE A (Negative) Urine Cocaine Screen Negative (Negative) U Marijuana (THC) Screen Negative (Negative) Ur Drug Screen Comment See Note Ethyl Alcohol < 0.01 (0.01-0.03) % SARS-CoV-2 (PCR) Negative SARS-CoV-2 (Negative) Imaging Data CT scan - head: Attestation: I have reviewed the pertinent imaging results. My impression: No intracranial hemorrhage Radiologist's impression: IMPRESSION: Normal head CT. ECG Data Attestation: I personally reviewed and interpreted this ECG as follows: Interpretation: Sinus bradycardia Rate 58 NE interval 154 Normal QRS axis. Low voltage QRS T-wave flattening throughout but no ST segment elevation or depression. Nonspecific QT 426, QTC 418 Discharge Plan Discharge Clinical Impression: Janine, Delusions Prescriptions: No Action cholecalciferol (vitamin D3) 10 mcg/mL (400 unit/mL) drops 500 unit PO DAILY calcium carbonate 500 mg calcium (1,250 mg) tablet 1,500 mg PO DAILY multivitamin [Multiple Vitamins] Tablet 1 tab PO QDAY gabapentin 300 mg capsule 300 mg PO QDAY omega 0-lid-iku-fish oil [Fish Oil] 1,000 mg (120 mg-180 mg) capsule 1 cap PO QDAY cyanocobalamin (vitamin B-12) 3,000 mcg capsule 3,000 mcg PO QDAY Eliquis 5 mg tablet 5 mg PO BID hydroxyzine HCl 25 mg tablet 25 mg PO TID PRN (Reason: itching) Qty: 14 0RF Follow Up/Referrals: Velma Sosa PA-C [Primary Care Provider, Family Practice]
[2024-12-14 08:08] LABS: Hematocrit* 38.7 % (33.0-51.0); Hemoglobin* 12.4 gm/dL (12.0-16.0); Immature Granulocytes Abs Auto 0.00 K/uL (0.00-0.30); Immature Granulocytes Pct Auto 0.0 %; Mean Corpuscular HGB Conc 32 gm/dL (32-36); Mean Corpuscular Hemoglobin 29 pg (26-34); Mean Corpuscular Volume 91 fL (80-100); RDW Coefficient of Variation % 13.7 % (11.5-15.5); Red Blood Count* 4.24 m/uL (4.00-5.20); White Blood Count* 4.02 K/uL (4.50-11.00)
[2024-12-14 08:11] LABS: Lymphocytes Absolute Auto 1.00 K/uL (0.90-2.90); Slide Review Reflex No
[2024-12-14 08:20] LABS: Albumin* 3.9 g/dL (3.3-5.0)
[2024-12-14 08:21] LABS: Chloride* 102 mmol/L (96-114); Potassium* 3.6 mmol/L (3.6-5.1); Sodium* 138 mmol/L (135-149)
[2024-12-14 08:23] LABS: Alanine Aminotransferase* 16 U/L (4-35); Alkaline Phosphatase* 95 U/L (40-150); Anion Gap 4 mEq/L (7-15); Aspartate Amino Transferase* 35 U/L (12-35); Bilirubin Total* 0.5 mg/dL (0.1-1.5); Blood Urea Nitrogen* 18 mg/dL (7-30); Carbon Dioxide* 32 mmol/L (20-32); Creatinine* 1.0 mg/dL (0.5-1.5); Est. Creatinine Clearance* 54.33; Estimated Glomerular Filt Rate 59 ml/min
[2024-12-14 08:24] LABS: Calcium* 9.2 mg/dL (8.4-10.6); Glucose* 105 mg/dL (60-115); Total Protein* 6.9 g/dL (6.0-8.3)
--- NOTE | 2024-12-14 08:25 | CRLHL7_ITS ---
For Patients: As a result of the 21st Century Cures Act, medical imaging exams and procedure reports are released immediately into your electronic medical record. You may view this report before your referring provider. If you have questions, please contact your health care provider. INDICATION: Altered mental status, patient on Eliquis. COMPARISON: 12/19/2010 TECHNIQUE: CT of the brain / head without intravenous contrast. Multiplanar axial, coronal, and sagittal reformats were reconstructed. FINDINGS: No intracranial hemorrhage. Normal appearance of the white matter. No acute or subacute cortically based infarct. No mass or mass effect. Normal ventricles. No skull fractures. No worrisome focal bone lesion. IMPRESSION: Normal head CT. Please note that all CT scans at this facility use dose modulation, iterative reconstruction, and/or weight-based dosing when appropriate to reduce radiation dose to as low as reasonably achievable. Dictated by Alessandra Martinez MD @ 12/14/2024 8:52:49 AM (Electronically Signed)
[2024-12-14 08:26] LABS: Acetaminophen* < 10.0 ug/mL (10.0-30.0); Ethanol* < 0.01 % (0.01-0.03); Salicylate* < 1.0 mg/dL (1.0-10)
[2024-12-14 08:36] LABS: SARS PCR* Negative SARS-CoV-2 (Negative)
[2024-12-14 08:50] LABS: Appearance Urine Clear (Clear)
[2024-12-14 09:24] LABS: Cannabinoid Screen Urine Negative (Negative); Methamphetamines Screen Urine Negative (Negative)
[2024-12-14 09:25] LABS: Tricyclic Antidepressant Urine Negative (Negative)
[2024-12-14 14:53] VITALS: BP 153/82; PULSE 78; RESP 18; TEMP 36.4; O2SAT 99
--- NOTE | 2024-12-14 14:54 | PC.SOCIAL ---
Discharge Planning: SW called patient's son x2 to inquire about any guardianship patient may have. The first call went straight to and the second call he did not answer. SW did not leave a at this time. SW reviewed chart and court records and did not find any information about patient having a guardian at this time. SW reviewed list of facilities that accept geriatric psych placements and the only places listing openings were [facility] - which had already declined patient, [facility] - which stated no bed availability today, and [facility] - which was in the process of reviewing patient. SW to continue to assist in discharge planning as needed.
[2024-12-14] MEDS: ACETAMINOPHEN 500 MG TABLET 1000 MG PO (16:15)
--- NOTE | 2024-12-14 19:05 | PC.NURSE ---
Patient up ambulating in [place]ista with nurse. Pleasant and talkative. Patient reporting stiffness in legs from sitting in room. Otherwise calm and happy.
[2024-12-14] MEDS: DIVALPROEX DELAYED RELEASE 250 MG TABLET 500 MG PO (20:07)
[2024-12-14] MEDS: APIXABAN 5 MG TABLET PO (20:07)
[2024-12-14] MEDS: GABAPENTIN 600 MG TABLET 1200 MG PO (20:07)
[2024-12-14 21:34] VITALS: BP 119/59; PULSE 77; RESP 18; TEMP 36.9; O2SAT 97
[2024-12-15] MEDS: ACETAMINOPHEN 325 MG TABLET 650 MG PO ×2 (02:41→07:02)
[2024-12-15 04:00] VITALS: TEMP 36.7
[2024-12-15 04:27] VITALS: BP 128/77; PULSE 85; RESP 18; TEMP 36.7; O2SAT 98
[2024-12-15] MEDS: DIVALPROEX DELAYED RELEASE 250 MG TABLET 500 MG PO (06:27)
[2024-12-15] MEDS: APIXABAN 5 MG TABLET PO (06:27)
[2024-12-15] MEDS: METOPROLOL SUCCINATE (XL) 25 MG TAB PO (06:27)
[2024-12-15 07:02] VITALS: TEMP 36.7
[2024-12-15] MEDS: PANCREALIPASE (12,38,60) CAP 1 CAP PO (07:46)
[2024-12-15 09:06] VITALS: BP 136/70; PULSE 62; RESP 16; TEMP 36.5; O2SAT 99
--- NOTE | 2024-12-15 10:46 | PC.SOCIAL ---
Addendum entered by Michelle Escalante AGED OR DISABLED CARE WORKER 12/15/24 12:31: Received call back from [facility] declining pt due to acuity. Original Note: Discharge planning: Per MD order for placement in in-pt mental health, contacted all the facilities on the [facility] Website [facility] with the following results: 1. [facility] - has already assessed and declined pt. 2. [facility] [phone] - no beds available, can call back today after noon. 3. [facility] - has reviewed and declined pt due to acuity. 4. [facility] in [place] - [phone] left message with admissions requesting call back. 5. [facility] in [place]- No beds available today, can call back tomorrow. 6. [facility] (through [employer] [phone]) already reviewed and declined pt due to acuity. 7. [facility] [phone] declined as no high acuity beds currently available, can call back tomorrow. 8. [facility] - [phone] - no beds currently available, call back after 3:30 today. Suggested calling [facility] as they evaluate their admissions seperate from rest of [facility]. 9. [facility] [phone] - spoke with admissions nurse who is currently reviewing and will call back to RN with decision on admit. marriage and family social worker to follow up with facilities as suggested.
[2024-12-15] MEDS: LIDOCAINE 5% PATCH 1 PATCH TRANSDERMA (11:22)
--- NOTE | 2024-12-15 11:27 | PC.SOCIAL ---
Addendum entered by BETINA Hernández 12/15/24 13:36: Called [facility] in [place] [phone] - no beds available but can call back after 7:00pm today. Addendum entered by BETINA Hernández 12/15/24 12:11: [facility] called back and declined due to pt being too high acuity. Original Note: Discharge planning: Called [facility] [phone] and spoke with Velma in admissions. Velma confirmed they have beds available and can assess pt to see if she is appropriate for their facility. RN to fax information packet to facility at [phone]. Awaiting decision on admit.
[2024-12-15] MEDS: PANCREALIPASE (12,38,60) CAP 2 CAP PO ×2 (11:35→16:49)
[2024-12-15 12:58] VITALS: BP 119/71; PULSE 71; RESP 16; TEMP 36.5; O2SAT 98
== END 2024-12-15 18:00 ==
PROVIDERS: Emergency Provider Family Medicine; PCP Physician Assistant
DX: F30.9 Manic episode, unspecified (principal); F22 Delusional disorders
CPT/HCPCS: 36415; 70450; 80053; 80143; 80179; 80306; 81001; 82077; 84443; 85025; 87086; 87635; 93005; 99284; 99285; A9270